=== PATIENT | female | born 1965 | race Caucasian/White ===

== ENCOUNTER → 2019-05-28 | Outpatient (REF) | payer OTHER ==
[2019-05-28 10:30] LABS: INR 1.42; PROTHROMBIN TIME 17.1 SECONDS (11.8-14.0)
== END ==
LOC: M LAB REF 09:27
PROVIDERS: ATTEND Internal Medicine Cardiovascular Disease
DX: Z51.81 Encounter for therapeutic drug level monitoring (principal)

== ENCOUNTER → 2019-06-04 | Outpatient (REF) | payer OTHER ==
[2019-06-04 11:18] LABS: INR 2.79; PROTHROMBIN TIME 29.3 SECONDS (11.8-14.0)
== END ==
LOC: M LAB REF 10:56
PROVIDERS: ATTEND Internal Medicine Cardiovascular Disease
DX: Z51.81 Encounter for therapeutic drug level monitoring (principal)

== ENCOUNTER 2020-03-10 18:45 | Inpatient (IN) | payer MEDICAID, OTHER ==
[~2020-03-10] VITALS: Ht 162.6 cm; Wt 78.3 kg
[2020-03-10] MEDS ORDERED: LABETALOL 100MG/20ML VIAL IV STA (19:21)
[2020-03-10] MEDS ORDERED: ONDANSETRON 4MG/2ML VIAL IV ONE (19:30)
[2020-03-10 20:15] LABS: BASO # 0.1 10^3/uL (0.0-0.2); BASO % 0.4 % (0.0-1.0); EOS % 0.1 % (0.0-3.0); HEMATOCRIT 37.9 % (36.0-47.0); HEMOGLOBIN 13.3 g/dl (12.0-15.5); LYMPH # 1.3 10^3/uL (1.5-5.0); LYMPH % 8.9 % (24.0-44.0); MEAN CORPUSCULAR HEMOGLOBIN 30.6 pg (27.0-33.0); MEAN CORPUSCULAR HGB CONC 35.1 g/dl (32.0-36.5); MEAN CORPUSCULAR VOLUME 87.1 fl (80.0-96.0); MONO # 0.7 10^3/uL (0.0-0.8); MONO % 4.7 % (0.0-5.0); NEUTROPHILS # 12.1 10^3/uL (1.5-8.5); NEUTROPHILS % 85.4 % (36.0-66.0); PLATELET COUNT, AUTOMATED 405 10^3/uL (150-450); RED BLOOD COUNT 4.35 10^6/uL (4.00-5.40); WHITE BLOOD COUNT 14.1 10^3/uL (4.0-10.0)
[2020-03-10] MEDS ORDERED: hydrALAZINE 20MG/ML 1ML VIAL (J0360 PER 20MG) IV ONE (20:15)
[2020-03-10 20:25] LABS: INR 0.94; PROTHROMBIN TIME 12.3 SECONDS (11.8-14.0)
[2020-03-10 20:26] LABS: PARTIAL THROMBOPLASTIN TIME 22.5 SECONDS (25.0-38.4)
[2020-03-10 20:35] VITALS: BP 181/86
[2020-03-10 20:40] LABS: CK-MB VALUE MASS 1.1 NG/ML (<3.6); CPK CREATINE PHOSPHOKINASE 33 U/L (26-192); MB/CK RELATIVE INDEX 3.33 (< OR =4); TROPONIN I < 0.02 NG/ML (< 0.10)
[2020-03-10] MEDS ORDERED: METOCLOPRAMIDE INJ 10MG/2ML VIAL (J2765 PER 1) IV ONE (20:45)
[2020-03-10] MEDS ORDERED: METO1TAB87 (20:58)
--- NOTE | 2020-03-10 21:03 | ECGEPIP ---
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
--- NOTE | 2020-03-10 21:09 | REPVR ---
PROCEDURE INFORMATION: Exam: CT Head Without Contrast Exam date and time: 03/10/2020 7:31 PM Age: 55 years old Clinical indication: Other: CVA; Additional info: CVA - nursing interventions must not delay CT TECHNIQUE: Imaging protocol: Computed tomography of the head without contrast. Radiation optimization: All CT scans at this facility use at least one of these dose optimization techniques: automated exposure control; mA and/or kV adjustment per patient size (includes targeted exams where dose is matched to clinical indication); or iterative reconstruction. Other technique: STROKE PROTOCOL was implemented. COMPARISON: No relevant prior studies available. FINDINGS: Brain: Normal. No hemorrhage. Unremarkable white matter. No mass effect. Ventricles: Normal. No ventriculomegaly. Bones/joints: Unremarkable. No acute fracture. Sinuses: Visualized sinuses are unremarkable. No fluid levels. Mastoid air cells: Visualized mastoid air cells are well aerated. Vasculature: Vascular calcifications. Soft tissues: Unremarkable. IMPRESSION: No acute intracranial abnormality. ASSESSMENT: ASPECTS ([place]ell Stroke Program Early CT Score) is 10. Electronically signed by: Baron Bragg On 03/10/2020 21:09:12 PM
[2020-03-10] MEDS ORDERED: AMLO1TAB25 (21:14)
[2020-03-10] MEDS ORDERED: DULO1CAP5 (21:14)
[2020-03-10] MEDS ORDERED: CLOP75TA2 (21:14)
[2020-03-10] MEDS ORDERED: EZET10TA21 (21:14)
[2020-03-10] MEDS ORDERED: DULO1CAP6 (21:14)
[2020-03-10] MEDS ORDERED: FURO40TA2 (21:14)
[2020-03-10] MEDS ORDERED: LISI20TA20 (21:14)
[2020-03-10] MEDS ORDERED: GEMF600T5 (21:14)
[2020-03-10] MEDS ORDERED: ALOG6.25 (21:14)
[2020-03-10] MEDS ORDERED: WARF-20 (21:14)
[2020-03-10] MEDS ORDERED: LEVO25TA5 (21:14)
[2020-03-10] MEDS ORDERED: PANT40TA29 (21:14)
[2020-03-10] MEDS ORDERED: ATOR80TA59 (21:14)
[2020-03-10] MEDS ORDERED: VITA50005 (21:14)
[2020-03-10] MEDS ORDERED: MAPA325T8 (21:14)
[2020-03-10] MEDS ORDERED: KETOROLAC 30 MG/ML 1ML VIAL IV ONE (21:30)
[2020-03-10] MEDS ORDERED: NS 500 ML IV ONE (21:30)
[2020-03-10] MEDS ORDERED: diphenhydrAMINE 50MG/ML VIAL (J1200) IV ONE (21:30)
[2020-03-10] MEDS ORDERED: HumaLOG INSULIN (NovoLOG) PER UNIT SC ONE (22:30)
[2020-03-11] MEDS ORDERED: DEXTROSE 50% 50 ML SYRINGE IV PRN (01:30)
[2020-03-11] MEDS ORDERED: GLUCAGON INJ 1MG VIAL SC PRN (01:30)
[2020-03-11] MEDS ORDERED: GLUCOSE 4GM CHEW TABLET PO PRN (01:30)
[2020-03-11] MEDS ORDERED: LISI20TA20 PO (02:13)
[2020-03-11] MEDS ORDERED: DULO1CAP6 PO (02:13)
[2020-03-11] MEDS ORDERED: SYNT25TA PO (02:13)
[2020-03-11] MEDS ORDERED: FURO40TA2 PO (02:13)
[2020-03-11] MEDS ORDERED: METO25TA4 PO (02:13)
[2020-03-11] MEDS ORDERED: AMLO1TAB25 PO (02:13)
[2020-03-11] MEDS ORDERED: BASA100I SC (02:13)
[2020-03-11] MEDS ORDERED: EZET10TA21 PO (02:13)
[2020-03-11] MEDS ORDERED: VITA50005 PO (02:13)
[2020-03-11] MEDS ORDERED: ATOR80TA59 PO (02:13)
[2020-03-11] MEDS ORDERED: ALOG6.25 PO (02:13)
[2020-03-11] MEDS ORDERED: ACET-907 PO (02:13)
[2020-03-11] MEDS ORDERED: DULO30CA9 PO (02:13)
[2020-03-11] MEDS ORDERED: PLAV1TAB2 PO (02:13)
[2020-03-11] MEDS ORDERED: GEMF600T5 PO (02:13)
[2020-03-11] MEDS ORDERED: MECL1TAB31 PO (02:13)
[2020-03-11] MEDS ORDERED: PANT-23 PO (02:13)
[2020-03-11] MEDS ORDERED: LEVEMIR (INSULIN DETEMIR) 1 UNITS/0.01ML SC ONE (02:15)
[2020-03-11] MEDS ORDERED: ACETAMINOPHEN TAB 650MG DOSE (2X325MG) PO PRN (02:15)
[2020-03-11 03:15] VITALS: BP 172/82
[2020-03-11] MEDS: ASPIRIN 81 MG CHEW TABLET PO ONE ×2 (03:15→04:03)
[2020-03-11] MEDS: ONDANSETRON 4MG/2ML VIAL IV PRN ×3 (04:03→16:19)
[2020-03-11] MEDS: LABETALOL 100MG/20ML VIAL IV SCH ×4 (04:04→21:00)
[2020-03-11] MEDS ORDERED: HumaLOG INSULIN (NovoLOG) PER UNIT SC ONE (04:15)
--- NOTE | 2020-03-11 04:33 | HPEPDOC ---
General Date of Admission 03/11/2020 Date of Service: Mar 11, 2020 Chief Complaint The patient is a 55-year-old female Who presented to the emergency room with complaint of nausea, vomiting and numbness and tingling of her right face History of Present Illness Patient is a 55-year-old female with a PMHx of CAD s/p stent / CABG, HTN, Hypothyroidism, DLP, Depression, who presented to the emergency room with complaints of numbness of the side of her right face and right leg , as well as nausea and vomiting. Patient reported that this morning she is experiencing nausea and vomiting and then 2:00 this afternoon she noted that she had right leg heaviness and right facial tingling. Upon arrival to emergency room, patient was evaluated by ER providers would noted that patient was hypertensive, with systolic blood pressures in the 200s. Was given IV medication to help control blood pressure. Resolution of her nausea and vomiting. Noted persistence of her numbness and tingling in the right side of her face. CT scan was acquired and was negative for any acute infarcts. Hospitalist service was contacted for admission. Patient reports that the numbness and tingling of the right side of her face and right leg persist and she is having difficulty with ambulation. , Currently patient notes that her nausea and vomiting has improved. Patient does not have any prior history of strokes but has had a heart attack 5 years ago. Has also had a coronary artery bypass done 05/2019. Patient reports that currently she denies any chest pain, shortness of breath, cough or palpitations. Does not express any abdominal pain, constipation, diarrhea, or urinary discomfort. Has not expense any fevers or chills. Denies any changes in her weight Home Medications Scheduled Alogliptin Benzoate (Alogliptin) 6.25 Mg Tablet, 6.25 MG PO DAILY, (Reported) Amlodipine Besylate (Amlodipine Besylate) 10 Mg Tablet, 10 MG PO DAILY, (Reported) Atorvastatin Calcium (Atorvastatin Calcium) 80 Mg Tablet, 80 MG PO DAILY, (Reported) Clopidogrel Bisulfate (Plavix) 75 Mg Tablet, 75 MG PO DAILY, (Reported) Duloxetine Hcl (Duloxetine HCl) 30 Mg Capsule.dr, 30 MG PO DAILY, (Reported) TAKES WITH 60MG FOR 90MG TOTAL Duloxetine Hcl (Duloxetine HCl) 60 Mg Capsule.dr, 60 MG PO DAILY, (Reported) TAKES WITH 30MG FOR 90MG TOTAL Ergocalciferol (Vitamin D2) (Vitamin D2) 50,000 Units Cap, 50,000 UNITS PO 1XWK, (Reported) SATURDAY Ezetimibe (Ezetimibe) 10 Mg Tablet, 10 MG PO DAILY, (Reported) Furosemide (Furosemide) 40 Mg Tablet, 40 MG PO DAILY, (Reported) Gemfibrozil (Gemfibrozil) 600 Mg Tablet, 300 MG PO TID, (Reported) Insulin Glargine,Hum.rec.anlog (Basaglar Kwikpen U-100) 100 Unit/1 Ml Insuln.pen, 40 UNIT SC QHS, (Reported) Levothyroxine Sodium (Synthroid) 25 Mcg Tablet, 25 MCG PO DAILY, (Reported) Lisinopril/Hydrochlorothiazide (Lisinopril-Hctz 20-25 mg Tab) 1 Each Tablet, 1 TAB PO DAILY, (Reported) Metoprolol Tartrate (Metoprolol Tartrate) 25 Mg Tablet, 25 MG PO BID, (Reported) Pantoprazole Sodium (Pantoprazole Sodium) 40 Mg Tablet.dr, 40 MG PO BID, (Reported) Scheduled PRN Acetaminophen (Tylenol) 325 Mg Tablet, 650 MG PO Q4H PRN for PAIN / FEVER, (Reported) Meclizine HCl (Meclizine HCl) 25 Mg Tablet, 25 MG PO DAILY PRN for VERTIGO/DIZZINESS, (Reported) Allergies Coded Allergies: Penicillins (Verified Allergy, Intermediate, swelling, 03/10/20) prednisone (Verified Adverse Reaction, Intermediate, tachycardia, 03/10/20) Past Medical History Medical History CAD s/p stent / CABG, HTN, Hypothyroidism, DLP, Depression Surgical History Coronary artery bypass graft Appendectomy Family History - Mother with history of breast cancer Social History - Denies the use of alcohol, tobacco or illicit drugs - Denies recent travel or sick contacts - Lives with daughter - 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; 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 Review of Systems Other systems 10 point review of systems complete, all negative otherwise stated in HPI Vital Signs - Vitals: BP 178/92, HR [77], RR [16], Sat [98%RA], Temp [98.9F] - General: Lying in bed, Speaking in full sentences, AAOx3 - HEENT: NC, AT, PERRLA, EOMI - CVS: RRR, +S1S2 - Lungs: Fair air entry bilaterally, No appreciable wheezing / rales / rhonchi - Abdomen: Soft, Non-distended, Non-tender - Extremities: No lower extremity edema, No calf tenderness - Neuro: 5/5 strength at upper / lower extremities bilaterally, CN2-12 grossly intact - Skin: No visible rashes Laboratory Data Labs 24H Laboratory Tests 2 03/10/20 19:21: Immature Granulocyte % (Auto) 0.5, Neutrophils (%) (Auto) 85.4H, Lymphocytes (%) (Auto) 8.9L, Monocytes (%) (Auto) 4.7, Eosinophils (%) (Auto) 0.1, Basophils (%) (Auto) 0.4, Neutrophils # (Auto) 12.1H, Lymphocytes # (Auto) 1.3L, Monocytes # (Auto) 0.7, Eosinophils # (Auto) 0.0, Basophils # (Auto) 0.1, Nucleated Red Blood Cells % (auto) 0.0, Prothrombin Time 12.3, Prothromb Time International Ratio 0.94, Activated Partial Thromboplast Time 22.5L, Total Creatine Kinase 33, Creatine Kinase MB 1.1, Creatine Kinase MB Relative Index 3.33, Troponin I < 0.02 03/10/20 19:52: Lactic Acid Level 1.7 03/10/20 19:57: POC Glucose (Misc Panel) 433H, POC Sodium (Misc Panel) 135L, POC Potassium (Misc Panel) 4.0, POC Chloride (Misc Panel) 100, POC Total CO2 (Misc Panel) 25.0, POC Blood Urea Nitrogen (Misc Panel 27H, POC Ionized Calcium (Misc Panel) 4.8, POC Creatinine (Misc Panel) 1.0, POC Hematocrit (Misc Panel) 40.0 03/11/20 00:02: Bedside Glucose (Misc Panel) 404H CBC/BMP Laboratory Tests 03/10/20 19:21 Plan / VTE VTE Prophylaxis Ordered?: Yes Plan Plan R facial numbness / R leg numbness - possibly 2/2 CVA - Patient presented to the emergency room with complaints of numbness and healing of her right face and leg associated with nausea and vomiting - Physical is without any focal neurologic deficits - CT head 03/10: No acute intracranial abnormality. - Will check MRI / MRA brain / Neuro checks / ECHO / Duplex Carotid / Cardiac risk profile - Will start ASA in addition to the existing Plavix; c/w Atorvastatin Hypertensive urgency - Blood pressure currently is slightly improved - Will allow for permissive hypertension until MRI results (140-180) - Hold Metorpolol / Furosemide / Lisinopril / HCTZ - Will continue with labetalol with specific holding parameters Nausea and vomiting - possibly 2/2 Hypertensive urgency - Currently has resolution of her symptoms - No abdominal pain - c/w Zofran CAD s/p stent / CABG - c/w Plavix - Patient reports that she has been on Coumadin one month ago, but had stopped abruptly; is unclear why she was on Coumadin - Will request records Hypothyroidism - c/w Levothyroxine IDDM2 - c/w ISS and adjust dose of long acting insulin DLP - c/w Atorvastatin and Gemfibrozil Depression - c/w DVT prophylaxis - Will start Heparin DINAH PAZ MD Mar 11, 2020 02:20
[2020-03-11] MEDS: HEPARIN SOD (PORCINE) 5000UNITS/ML 1ML VIAL/SYRINGE SC SCH ×3 (06:00→21:34)
[2020-03-11] MEDS ORDERED: hydrALAZINE 20MG/ML 1ML VIAL (J0360 PER 20MG) IV ONE (06:15)
[2020-03-11] MEDS ORDERED: METOCLOPRAMIDE INJ 10MG/2ML VIAL (J2765 PER 1) IV ONE (06:15)
[2020-03-11] MEDS: HumaLOG INSULIN (NovoLOG) PER UNIT SC SCH ×4 (07:30→21:00)
[2020-03-11 08:00] VITALS: BP 162/88
[2020-03-11 08:09] LABS: BASO % 0.2 % (0.0-1.0); HEMATOCRIT 37.4 % (36.0-47.0); LYMPH # 1.2 10^3/uL (1.5-5.0); LYMPH % 9.1 % (24.0-44.0); MEAN CORPUSCULAR HEMOGLOBIN 30.4 pg (27.0-33.0); MEAN CORPUSCULAR HGB CONC 34.8 g/dl (32.0-36.5); MEAN CORPUSCULAR VOLUME 87.6 fl (80.0-96.0); MONO # 0.7 10^3/uL (0.0-0.8); NEUTROPHILS # 11.1 10^3/uL (1.5-8.5); NEUTROPHILS % 85.3 % (36.0-66.0); PLATELET COUNT, AUTOMATED 427 10^3/uL (150-450); RED BLOOD COUNT 4.27 10^6/uL (4.00-5.40)
[2020-03-11 08:31] LABS: CALCIUM LEVEL 9.5 MG/DL (8.5-10.1); CREATININE FOR GFR 1.31 MG/DL (0.55-1.30)
--- NOTE | 2020-03-11 08:49 | REP ---
REASON: Stroke-like symptoms. FINDINGS: The technique utilized in obtaining the radiograph has magnified the cardiac silhouette and accentuated the interstitial markings. The superior mediastinal structures are midline. Note is made of previous median sternotomy. The cardiac silhouette is unremarkable in size, shape, and position. The diaphragmatic surfaces of the lungs are regular, and the costophrenic angles are clear. The pulmonary jerome are clear. The imaged osseous structures are intact. IMPRESSION: There is no acute cardiopulmonary disease. Electronically Signed by Narendra Red DO 03/11/2020 11:24 A
[2020-03-11] MEDS: EZETIMIBE 10 MG TAB (ZETIA) PO SCH (09:00)
[2020-03-11] MEDS: amLODIPine 10 MG TAB PO SCH (09:00)
[2020-03-11] MEDS: PANTOPRAZOLE 40MG TAB (PROTONIX) PO SCH ×2 (09:00→21:00)
[2020-03-11] MEDS: gemfibroziL 600 MG TAB PO SCH ×3 (09:00→21:00)
[2020-03-11] MEDS: ATORVASTATIN 20 MG TAB PO SCH (09:00)
[2020-03-11] MEDS: CLOPIDOGREL 75 MG TAB PO SCH (09:00)
[2020-03-11] MEDS: ASPIRIN 81 MG CHEW TABLET PO SCH (09:00)
[2020-03-11] MEDS: lisinopriL 10 MG TAB PO SCH (09:00)
[2020-03-11] MEDS ORDERED: LEVEMIR (INSULIN DETEMIR) 1 UNITS/0.01ML SC SCH ×2 (09:00→21:00)
[2020-03-11] MEDS: LEVOTHYROXINE 25MCG TABLET (0.025MG) PO SCH (09:00)
[2020-03-11] MEDS: METOPROLOL TART 25 MG TABLET PO SCH ×2 (09:00→21:00)
[2020-03-11] MEDS: DULoxetine 30 MG CAP (CYMBALTA) PO SCH (09:00)
--- NOTE | 2020-03-11 09:33 | REP ---
REASON: Stenosis and bruit. PRIORS: None. Preliminary report given by [facility] at the time the exam was performed. There is echogenic material seen along the carotid arterial wall some of which casts an acoustic shadow consistent with calcific deposition. RIGHT LEFT CCA systolic 82.6 cm/s 81.8 cm/s CCA diastolic 17.4 cm/s 14.0 cm/s ICA systolic 56.8 cm/s 64.0 cm/s ICA diastolic 29.7 cm/s 17.1 cm/s ICA/CCA ratio 0.69 0.78 Analysis of the spectral waveforms shows above and below the baseline waveform seen in the right vertebral artery. Normal antegrade flow is seen in the left vertebral artery. There is no evidence of significant spectral broadening. IMPRESSION: 1. According to the SRU criteria, there is less than 50% stenosis of the internal carotid artery bilaterally. This is secondary to both calcified and noncalcified plaque formation . 2. Possible early right-sided subclavian steal syndrome. Electronically Signed by Narendra Red DO 03/11/2020 11:26 A
[2020-03-11 12:00] VITALS: BP 148/76
[2020-03-11] MEDS: MECLIZINE 25 MG TABLET PO PRN ×2 (12:53→21:00)
[2020-03-11] MEDS ORDERED: SODIUM CHLORIDE 0.9% 1000ML IV ONE (14:00)
[2020-03-11] MEDS: NS 1,000 ML IV SCH (15:33)
[2020-03-11 16:00] VITALS: BP 152/80
--- NOTE | 2020-03-11 16:50 | IPNPDOC ---
Text Note Date of Service The patient was seen on 03/11/20. NOTE Subjective: Complains of room spinning on opening the eyes with nausea and vo miting which started around 2 pm yesterday while she was sitting down. She could not work with PT due to severe vertigo . Denies any weakness or numbess of her body. Physical Exam - Vitals:As below - General: Lying in bed, Speaking in full sentences, AAOx3 - HEENT: NC, AT, PERRLA, Horizontal nystagmus present. - CVS: RRR, +S1S2, no rub, murmur or gallop - Lungs: Fair air entry bilaterally, No appreciable wheezing / rales / rhonchi - Abdomen: Soft, Non-distended, Non-tender - Extremities: No lower extremity edema, No calf tenderness - Neuro: 5/5 strength at upper / lower extremities bilaterally, CN2-12 grossly intact - Skin: No visible rashes Assessment and plan: Patient is a 55-year-old female with a PMHx of CAD s/p stent / CABG, HTN, Hypothyroidism, DLP, Depression, who presented to the emergency room with complaints of numbness of the side of her right face and right leg , as well as nausea and vomiting and spinning of the room. Patient reported that on [place] morning of admission she was experiencing nausea and vomiting and then 2:00 this afternoon she noted that she had right leg heaviness and right facial tingling. Upon arrival to emergency room, patient was evaluated by ER providers would noted that patient was hypertensive, with systolic blood pressures in the 200s. Was given IV medication to help control blood pressure. Resolution of her nausea and vomiting. Noted persistence of her numbness and tingling in the right side of her face. CT scan was acquired and was negative for any acute infarcts. Hospitalist service was contacted for admission. This morning again started complainingof nausea and vomiting with spinning of the room. Vertigo Nausea and vomiting with spinning of the room horizontal nystagmus present possibly vestibular neuronitis/ labyrynthitis/BPPV rule of cerebellar CVA MRI done results pending. IVF, clear liquids, Zofran and reglan. Meclizine prn. R facial numbness / R leg numbness rule out CVA Patient presented to the emergency room with complaints of numbness and healing of her right face and leg associated with nausea and vomiting CT head 03/10: No acute intracranial abnormality. MRI / MRA brain Neuro checks ECHO Duplex Carotid / Cardiac risk profile ASA, Plavix, Atorvastatin Hypertensive urgency Will allow for permissive hypertension until MRI results (140-180) metoprolol and lisinopril with hold parameters. Will continue with labetalol with specific holding parameters CAD s/p stent / CABG in 05/2019 c/w Plavix Patient reports that she has been on Coumadin one month ago, but had stopped abruptly; is unclear why she was on Coumadin Hypothyroidism Levothyroxine IDDM2 sugars auncontrolled. 400 Levemir dosage increased. ISS and adjust dose of long acting insulin DLP Atorvastatin and Gemfibrozil Depression home meds. DVT prophylaxis Heparin VS,Fishbone, I+O VS, Fishbone, I+O Laboratory Tests 03/10/20 19:21 03/11/20 03:28 Vital Signs Date Time Temp Pulse Resp B/P (MAP) Pulse Ox O2 Delivery O2 Flow Rate FiO2 03/11/20 12:00 96.9 89 16 148/76 (100) 100 Room Air I&O- Last 24 Hours up to 6 AM 03/11/20 07:00 Intake Total 500 ml Output Total 0 ml Balance 500 ml ANGELITA JARRETT MD Mar 11, 2020 16:50
--- NOTE | 2020-03-11 17:54 | REP ---
REASON: Facial numbness. Preliminary report given by [facility] at the time the exam was performed. There is occlusion of the right vertebral artery versus marked and extreme hypoplasia. There is a flow-limiting stenosis of the proximal to mid A1 segment of the left anterior cerebral artery. There are no other abnormalities. seen on the MRA This is the second dictation on the brain MRI. In the right cervicomedullary junction, there is a focal area of FLAIR hypersignal. This same FLAIR hypersignal area is of DWI hypersignal and ADC mapping low signal. The intracranial contents are otherwise unremarkable. No additions to or extractions from the ad preliminary report need to be made. IMPRESSION: Acute lacunar infarct involving the right cervicomedullary junction. Electronically Signed by Narendra Red DO 03/11/2020 06:12 P
[2020-03-11 20:00] VITALS: BP 148/76
[2020-03-11] MEDS ORDERED: METOCLOPRAMIDE INJ 10MG/2ML VIAL (J2765 PER 1) IV PRN (21:15)
[2020-03-11] MEDS: PROMETHAZINE INJ 25 MG/ML VIAL (J2550) IV PRN (21:34)
[2020-03-12] VITALS (7 sets, daily range): BP systolic 152–170; BP diastolic 78–94
[2020-03-12] MEDS: NS 1,000 ML IV SCH ×3 (02:26→20:00)
[2020-03-12] MEDS: LABETALOL 100MG/20ML VIAL IV SCH ×4 (02:26→21:00)
[2020-03-12] MEDS: HEPARIN SOD (PORCINE) 5000UNITS/ML 1ML VIAL/SYRINGE SC SCH ×3 (05:16→21:14)
[2020-03-12] MEDS: PROMETHAZINE INJ 25 MG/ML VIAL (J2550) IV PRN ×3 (05:43→23:36)
[2020-03-12 05:45] LABS: BASO % 0.1 % (0.0-1.0); HEMOGLOBIN 12.1 g/dl (12.0-15.5); LYMPH % 13.1 % (24.0-44.0); MEAN CORPUSCULAR HEMOGLOBIN 30.3 pg (27.0-33.0); MEAN CORPUSCULAR HGB CONC 33.6 g/dl (32.0-36.5); MEAN CORPUSCULAR VOLUME 90.2 fl (80.0-96.0); MONO # 1.9 10^3/uL (0.0-0.8); MONO % 12.5 % (0.0-5.0); PLATELET COUNT, AUTOMATED 390 10^3/uL (150-450); RED BLOOD COUNT 3.99 10^6/uL (4.00-5.40); WHITE BLOOD COUNT 14.9 10^3/uL (4.0-10.0)
[2020-03-12 06:01] LABS: CALCIUM LEVEL 8.7 MG/DL (8.5-10.1); CREATININE FOR GFR 1.31 MG/DL (0.55-1.30); POTASSIUM SERUM 3.6 MEQ/L (3.5-5.1)
[2020-03-12] MEDS: MECLIZINE 25 MG TABLET PO PRN ×2 (08:23→18:15)
[2020-03-12] MEDS: HumaLOG INSULIN (NovoLOG) PER UNIT SC SCH ×4 (08:24→21:00)
[2020-03-12] MEDS: LEVOTHYROXINE 25MCG TABLET (0.025MG) PO SCH ×2 (08:25→09:00)
[2020-03-12] MEDS: ATORVASTATIN 20 MG TAB PO SCH ×2 (08:25→09:00)
[2020-03-12] MEDS: CLOPIDOGREL 75 MG TAB PO SCH ×2 (08:25→09:00)
[2020-03-12] MEDS: PANTOPRAZOLE 40MG TAB (PROTONIX) PO SCH ×3 (08:25→21:14)
[2020-03-12] MEDS: amLODIPine 10 MG TAB PO SCH ×2 (08:26→09:00)
[2020-03-12] MEDS: METOPROLOL TART 25 MG TABLET PO SCH ×3 (08:26→21:14)
[2020-03-12] MEDS: ASPIRIN 81 MG CHEW TABLET PO SCH ×2 (08:26→09:00)
[2020-03-12] MEDS: gemfibroziL 600 MG TAB PO SCH ×4 (08:27→21:15)
[2020-03-12] MEDS: lisinopriL 10 MG TAB PO SCH (08:27)
[2020-03-12] MEDS: EZETIMIBE 10 MG TAB (ZETIA) PO SCH ×2 (08:27→09:00)
[2020-03-12] MEDS: DULoxetine 30 MG CAP (CYMBALTA) PO SCH ×2 (08:27→09:00)
[2020-03-12] MEDS ORDERED: LEVEMIR (INSULIN DETEMIR) 1 UNITS/0.01ML SC SCH (09:00)
--- NOTE | 2020-03-12 15:42 | IPNPDOC ---
Text Note Date of Service The patient was seen on 03/12/20. NOTE Subjective: Continues to have severe vertigo, in all positions worse when sit ting up. She has to keep her eyes covered otherwise the room is constantly spinning. Her nausea and vomiting seems to be better today and she was able to keep some clear Denies any weakness However continues to have right facial numbness and numbness of the right toes. She feels she may be able to try some full liquids. Physical Exam - Vitals:As below - General: Lying in bed, Speaking in full sentences, AAOx3 - HEENT: NC, AT, PERRLA, Horizontal nystagmus present. - CVS: RRR, +S1S2, no rub, murmur or gallop - Lungs: Fair air entry bilaterally, No appreciable wheezing / rales / rhonchi - Abdomen: Soft, Non-distended, Non-tender - Extremities: No lower extremity edema, No calf tenderness - Neuro: 5/5 strength at upper / lower extremities bilaterally, CN2-12 grossly intact , DTRS in both the upper and lower extremities absent. - Skin: No visible rashes Labs Reviewed IMAGING: MRI: Acute lacunar infarct involving the right cervicomedullary junction. Carotid doppler: 1. According to the SRU criteria, there is less than 50% stenosis of the internal carotid artery bilaterally. This is secondary to both calcified and noncalcified plaque formation . 2. Possible early right-sided subclavian steal syndrome. Assessment and plan: Patient is a 55-year-old female with a PMHx of CAD s/p stent / CABG, HTN, Hypothyroidism, DLP, Depression, who presented to the emergency room with complaints of numbness of the side of her right face and right leg , as well as nausea and vomiting and spinning of the room. Patient reported that on the morning of admission she woke up experiencing nausea and vomiting and then 2:00 in the afternoon she noted that she had right leg heaviness and right facial tingling. Upon arrival to emergency room, patient was evaluated by ER providers would noted that patient was hypertensive, with systolic blood pressures in the 200s. Was given IV medication to help control blood pressure. With medications there was some resolution of her nausea and vomiting. However she had persistent numbness and tingling in the right side of her face. CT scan was acquired and was negative for any acute infarcts. Hospitalist service was contacted for admission. 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 Causing persistent severe vertigo. Already On ASA, Plavix and statin. symptomatic management of vertigo with meclizine. Discussed patient with Dr Ortega. To continue with current treatment . Patient was already out of the window of any intervention on her presentation. recommended MRA neck or MRi neck with contrast to better visualize the vertebral artery. PT/OT. Vertigo due to acute posterior circulation stroke. Nausea and vomiting with spinning of the room horizontal nystagmus present Will have to rule out associated vestibular neuronitis/ labyrynthitis/BPPV Vestibular PT. IVF, full liquids. Zofran and reglan. Meclizine prn. R facial numbness / R leg numbness rule out CVA Patient presented to the emergency room with complaints of numbness of her right face and leg associated with nausea and vomiting CT head 03/10: No acute intracranial abnormality. MRI Acute lacunar infarct in the right cervico- medullary junction. Neuro checks ECHO ASA, Plavix, Atorvastatin Hypertensive urgency Will allow for permissive hypertension due to acute CVA metoprolol and lisinopril with hold parameters. Will continue with labetalol with specific holding parameters CAD s/p stent / CABG in 05/2019 c/w Plavix, ASA Patient reports that she has been on Coumadin till one month ago, but had stopped abruptly; is unclear why she was on Coumadin Hypothyroidism Levothyroxine IDDM2 sugars uncontrolled yesterday, better controlled today. Levemir dosage increased. ISS and adjust dose of long acting insulin DLP Atorvastatin and Gemfibrozil Depression home meds. DVT prophylaxis Heparin VS,Fishbone, I+O VS, Fishbone, I+O Laboratory Tests 03/12/20 05:18 Vital Signs Date Time Temp Pulse Resp B/P (MAP) Pulse Ox O2 Delivery O2 Flow Rate FiO2 03/12/20 04:00 97.1 58 18 166/88 (114) 98 Room Air I&O- Last 24 Hours up to 6 AM 03/12/20 07:00 Intake Total 1540 ml Output Total 1800 ml Balance -260 ml ANGELITA JARRETT MD Mar 12, 2020 06:54
[2020-03-13] VITALS: BP 156/90
[2020-03-13] MEDS: LABETALOL 100MG/20ML VIAL IV SCH ×4 (03:00→20:58)
[2020-03-13 04:00] VITALS: BP 166/84
[2020-03-13] MEDS: MECLIZINE 25 MG TABLET PO PRN ×2 (05:30→14:30)
[2020-03-13] MEDS: HEPARIN SOD (PORCINE) 5000UNITS/ML 1ML VIAL/SYRINGE SC SCH ×3 (05:30→20:56)
[2020-03-13] MEDS: NS 1,000 ML IV SCH (05:32)
[2020-03-13 05:35] LABS: BASO % 0.4 % (0.0-1.0); EOS % 0.2 % (0.0-3.0); HEMATOCRIT 32.4 % (36.0-47.0); HEMOGLOBIN 10.7 g/dl (12.0-15.5); LYMPH # 2.2 10^3/uL (1.5-5.0); LYMPH % 26.4 % (24.0-44.0); MEAN CORPUSCULAR HEMOGLOBIN 30.1 pg (27.0-33.0); MEAN CORPUSCULAR VOLUME 91.3 fl (80.0-96.0); MONO # 1.3 10^3/uL (0.0-0.8); MONO % 15.2 % (0.0-5.0); NEUTROPHILS # 4.8 10^3/uL (1.5-8.5); NEUTROPHILS % 57.3 % (36.0-66.0); PLATELET COUNT, AUTOMATED 336 10^3/uL (150-450); RED BLOOD COUNT 3.55 10^6/uL (4.00-5.40); WHITE BLOOD COUNT 8.4 10^3/uL (4.0-10.0)
[2020-03-13 05:55] LABS: CALCIUM LEVEL 8.2 MG/DL (8.5-10.1); CREATININE FOR GFR 1.22 MG/DL (0.55-1.30); GLOMERULAR FILTRATION RATE 48.9 (>51); MAGNESIUM LEVEL 1.9 MG/DL (1.8-2.4); POTASSIUM SERUM 3.6 MEQ/L (3.5-5.1)
--- NOTE | 2020-03-13 07:10 | ECHO ---
DATE OF STUDY: 03/11/2020 DATE OF : 1965 AGE: 55 REFERRING PROVIDER: Dr. Chacho Padilla PATIENT LOCATION: Room 3220 REASON FOR STUDY: CVA. 2-D MEASUREMENTS: IVS: 1.1 cm LV: 4.1 cm LVPW: 1.1 cm LA: 3.7 cm Aorta: 2.8 cm DOPPLER MEASUREMENTS: Peak velocity across the aortic valve: 1.2 m/s Peak velocity across the LVOT: 0.9 m/s Mitral E: 0.96 Mitral A: 0.87 Ratio: 1.1 2-D COMMENTS: 1. Normal left ventricular size, wall thickness, and normal global left ventricular systolic function. The estimated left ventricular systolic ejection fraction is 60-65%. 2. Normal left atrium. Normal right atrium and right ventricle. 3. There was increased mobility noted at the level of the atrial septum consistent with atrial septal aneurysm, but no intracardiac shunt detected by Doppler. 4. Normal aortic root. 5. No pericardial effusion seen. 6. Minimally calcified aortic valve with normal leaflet excursion. Normal mitral valve. The posterior papillary muscle appeared to be mildly calcified. Normal tricuspid valve. The pulmonic valve and proximal pulmonary artery branches appear to be normal. 7. The inferior vena cava was not visualized. DOPPLER: It detects trace mitral regurgitation. Assessment of the left ventricular diastolic function appeared to be normal. IMPRESSION: 1. Normal global left ventricular systolic and diastolic function. 2. Aortic valve sclerosis without stenosis or aortic regurgitation. 3. Trace mitral regurgitation. 4. Interatrial septal aneurysm noted, but no evidence of cardiac shunt by Doppler. The patient might benefit from a bubble study in view of diagnosis of CVA. MOISÉS
[2020-03-13] MEDS: PROMETHAZINE INJ 25 MG/ML VIAL (J2550) IV PRN (07:43)
[2020-03-13 08:00] VITALS: BP 120/60
[2020-03-13] MEDS ORDERED: LevoFLOXacin IV 500 MG in IV 1 EA IV ONE (08:00)
[2020-03-13] MEDS: METOPROLOL TART 25 MG TABLET PO SCH ×2 (09:00→20:57)
[2020-03-13] MEDS: amLODIPine 10 MG TAB PO SCH (09:00)
[2020-03-13] MEDS: lisinopriL 10 MG TAB PO SCH (09:00)
[2020-03-13] MEDS: LEVEMIR (INSULIN DETEMIR) 1 UNITS/0.01ML SC SCH (09:46)
[2020-03-13] MEDS: ATORVASTATIN 20 MG TAB PO SCH (09:47)
[2020-03-13] MEDS: CLOPIDOGREL 75 MG TAB PO SCH (09:47)
[2020-03-13] MEDS: EZETIMIBE 10 MG TAB (ZETIA) PO SCH (09:47)
[2020-03-13] MEDS: PANTOPRAZOLE 40MG TAB (PROTONIX) PO SCH ×2 (09:47→20:56)
[2020-03-13] MEDS: HumaLOG INSULIN (NovoLOG) PER UNIT SC SCH ×4 (09:47→20:57)
[2020-03-13] MEDS: DULoxetine 30 MG CAP (CYMBALTA) PO SCH (09:48)
[2020-03-13] MEDS: gemfibroziL 600 MG TAB PO SCH ×3 (09:48→20:56)
[2020-03-13] MEDS: LEVOTHYROXINE 25MCG TABLET (0.025MG) PO SCH (09:48)
[2020-03-13] MEDS: ASPIRIN 81 MG CHEW TABLET PO SCH (09:48)
[2020-03-13 12:00] VITALS: BP 180/94
[2020-03-13 15:00] VITALS: BP 130/70
[2020-03-14] VITALS: BP 160/70
[2020-03-14] MEDS: LABETALOL 100MG/20ML VIAL IV SCH ×4 (03:00→21:00)
[2020-03-14 04:00] VITALS: BP 176/84
[2020-03-14] MEDS: NS 1,000 ML IV SCH (04:30)
[2020-03-14] MEDS: MECLIZINE 25 MG TABLET PO PRN ×2 (04:44→22:09)
[2020-03-14 05:47] LABS: BASO % 0.6 % (0.0-1.0); EOS % 0.4 % (0.0-3.0); HEMATOCRIT 31.4 % (36.0-47.0); HEMOGLOBIN 10.7 g/dl (12.0-15.5); LYMPH # 2.5 10^3/uL (1.5-5.0); LYMPH % 37.3 % (24.0-44.0); MEAN CORPUSCULAR HEMOGLOBIN 30.4 pg (27.0-33.0); MEAN CORPUSCULAR HGB CONC 34.1 g/dl (32.0-36.5); MEAN CORPUSCULAR VOLUME 89.2 fl (80.0-96.0); MONO # 1.2 10^3/uL (0.0-0.8); MONO % 17.6 % (0.0-5.0); NEUTROPHILS % 43.8 % (36.0-66.0); PLATELET COUNT, AUTOMATED 300 10^3/uL (150-450); RED BLOOD COUNT 3.52 10^6/uL (4.00-5.40); WHITE BLOOD COUNT 6.8 10^3/uL (4.0-10.0)
[2020-03-14] MEDS: HEPARIN SOD (PORCINE) 5000UNITS/ML 1ML VIAL/SYRINGE SC SCH ×3 (05:52→22:09)
[2020-03-14 06:06] LABS: CALCIUM LEVEL 8.2 MG/DL (8.5-10.1); CREATININE FOR GFR 1.16 MG/DL (0.55-1.30); GLOMERULAR FILTRATION RATE 51.8 (>51); MAGNESIUM LEVEL 1.9 MG/DL (1.8-2.4); POTASSIUM SERUM 3.8 MEQ/L (3.5-5.1)
[2020-03-14 08:00] VITALS: BP 150/72
[2020-03-14] MEDS: ASPIRIN 81 MG CHEW TABLET PO SCH (10:14)
[2020-03-14] MEDS: LEVEMIR (INSULIN DETEMIR) 1 UNITS/0.01ML SC SCH (10:14)
[2020-03-14] MEDS: LEVOTHYROXINE 25MCG TABLET (0.025MG) PO SCH (10:15)
[2020-03-14] MEDS: ATORVASTATIN 20 MG TAB PO SCH (10:17)
[2020-03-14] MEDS: HumaLOG INSULIN (NovoLOG) PER UNIT SC SCH ×4 (10:17→21:00)
[2020-03-14] MEDS: DULoxetine 30 MG CAP (CYMBALTA) PO SCH (10:17)
[2020-03-14] MEDS: CLOPIDOGREL 75 MG TAB PO SCH (10:18)
[2020-03-14] MEDS: gemfibroziL 600 MG TAB PO SCH ×3 (10:18→22:09)
[2020-03-14] MEDS: lisinopriL 10 MG TAB PO SCH (10:19)
[2020-03-14] MEDS: EZETIMIBE 10 MG TAB (ZETIA) PO SCH (10:19)
[2020-03-14] MEDS: METOPROLOL TART 25 MG TABLET PO SCH ×2 (10:19→22:09)
[2020-03-14] MEDS: PANTOPRAZOLE 40MG TAB (PROTONIX) PO SCH ×2 (10:20→22:09)
[2020-03-14] MEDS: amLODIPine 10 MG TAB PO SCH (10:20)
[2020-03-14] MEDS ORDERED: SLF 3 ML SYR IV PRN (11:30)
[2020-03-14 12:00] VITALS: BP 140/80
--- NOTE | 2020-03-14 12:50 | IPNPDOC ---
Text Note Date of Service The patient was seen on 03/14/20. NOTE Subjective: Continues to have vertigo but seems to be a little better. When she is laying down in bed it is not bothering her. Bad when she is sitting up or stantding. Was able to stand with PT today without falling. She does tilt to 1 side. Her nausea and vomiting seems to be better today and she was able to keep some clear Denies any weakness However continues to have right facial numbness and numbness of the right toes. She has been able to tolerate diet. Physical Exam - Vitals:As below - General: Lying in bed, Speaking in full sentences, AAOx3 - HEENT: NC, AT, PERRLA, Horizontal nystagmus present. - CVS: RRR, +S1S2, no rub, murmur or gallop - Lungs: Fair air entry bilaterally, No appreciable wheezing / rales / rhonchi - Abdomen: Soft, Non-distended, Non-tender - Extremities: No lower extremity edema, No calf tenderness - Neuro: 5/5 strength at upper / lower extremities bilaterally, CN2-12 grossly intact , DTRS in both the upper and lower extremities absent. - Skin: No visible rashes Labs Reviewed IMAGING: MRI: Acute lacunar infarct involving the right cervicomedullary junction. Carotid doppler: 1. According to the SRU criteria, there is less than 50% stenosis of the internal carotid artery bilaterally. This is secondary to both calcified and noncalcified plaque formation . 2. Possible early right-sided subclavian steal syndrome. Assessment and plan: Patient is a 55-year-old female with a PMHx of CAD s/p stent / CABG, HTN, Hypothyroidism, DLP, Depression, who presented to the emergency room with complaints of numbness of the side of her right face and right leg , as well as nausea and vomiting and spinning of the room. Patient reported that on the morning of admission she woke up experiencing nausea and vomiting and then 2:00 in the afternoon she noted that she had right leg heaviness and right facial tingling. Upon arrival to emergency room, patient was evaluated by ER providers would noted that patient was hypertensive, with systolic blood pressures in the 200s. Was given IV medication to help control blood pressure. With medications there was some resolution of her nausea and vomiting. However she had persistent numbness and tingling in the right side of her face. CT scan was acquired and was negative for any acute infarcts. Hospitalist service was contacted for admission. 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 Causing persistent severe vertigo. Already On ASA, Plavix and statin. symptomatic management of vertigo with meclizine. Discussed patient with Dr Ortega. To continue with current treatment . Patient was already out of the window of any intervention on her presentation. recommended MRA neck or MRI neck with contrast to better visualize the vertebral artery. PT/OT. Vertigo due to acute posterior circulation stroke. Nausea and vomiting with spinning of the room horizontal nystagmus present Will have to rule out associated vestibular neuronitis/ labyrynthitis/BPPV Vestibular PT. Zofran and reglan. Meclizine prn. R facial numbness / R leg numbness rule out CVA Patient presented to the emergency room with complaints of numbness of her right face and leg associated with nausea and vomiting CT head 03/10: No acute intracranial abnormality. MRI Acute lacunar infarct in the right cervico- medullary junction. Neuro checks ECHO ASA, Plavix, Atorvastatin Hypertensive urgency Will allow for permissive hypertension due to acute CVA metoprolol and lisinopril with hold parameters. Will continue with labetalol with specific holding parameters CAD s/p stent / CABG in 05/2019 c/w Plavix, ASA Patient reports that she has been on Coumadin till one month ago, but had stopped abruptly; is unclear why she was on Coumadin Hypothyroidism Levothyroxine IDDM2 sugars uncontrolled yesterday, better controlled today. Levemir dosage increased. ISS and adjust dose of long acting insulin DLP Atorvastatin and Gemfibrozil Depression home meds. DVT prophylaxis Heparin VS,Fishbone, I+O VS, Fishbone, I+O Laboratory Tests 03/14/20 05:35 Vital Signs Date Time Temp Pulse Resp B/P (MAP) Pulse Ox O2 Delivery O2 Flow Rate FiO2 03/14/20 12:00 98.0 71 18 140/80 (100) 97 Room Air I&O- Last 24 Hours up to 6 AM 03/14/20 05:59 Intake Total 2800 ml Output Total 1450 ml Balance 1350 ml ANGELITA JARRETT MD Mar 14, 2020 12:50
[2020-03-14] MEDS: SLF 3 ML SYR IV SCH ×2 (13:05→22:10)
[2020-03-14] MEDS: PROMETHAZINE INJ 25 MG/ML VIAL (J2550) IV PRN (15:12)
[2020-03-14 16:00] VITALS: BP 130/76
[2020-03-14] MEDS: LevoFLOXacin IV 250 MG in IV 1 EA IV SCH (17:40)
[2020-03-14 20:00] VITALS: BP 156/72
[2020-03-14] MEDS ORDERED: PROHANCE 279.3MG/ML 15ML VIAL As Ordered ONE (20:17)
[2020-03-15] VITALS: BP 160/74
[2020-03-15] MEDS: LABETALOL 100MG/20ML VIAL IV SCH ×4 (03:00→21:00)
[2020-03-15 04:00] VITALS: BP 140/60
[2020-03-15 05:46] LABS: BASO % 0.4 % (0.0-1.0); EOS # 0.1 10^3/uL (0.0-0.5); HEMATOCRIT 34.1 % (36.0-47.0); HEMOGLOBIN 11.5 g/dl (12.0-15.5); LYMPH # 2.8 10^3/uL (1.5-5.0); LYMPH % 28.6 % (24.0-44.0); MEAN CORPUSCULAR HEMOGLOBIN 30.1 pg (27.0-33.0); MEAN CORPUSCULAR HGB CONC 33.7 g/dl (32.0-36.5); MEAN CORPUSCULAR VOLUME 89.3 fl (80.0-96.0); MONO # 1.2 10^3/uL (0.0-0.8); MONO % 12.6 % (0.0-5.0); NEUTROPHILS # 5.5 10^3/uL (1.5-8.5); NEUTROPHILS % 57.1 % (36.0-66.0); PLATELET COUNT, AUTOMATED 334 10^3/uL (150-450); RED BLOOD COUNT 3.82 10^6/uL (4.00-5.40); WHITE BLOOD COUNT 9.7 10^3/uL (4.0-10.0)
[2020-03-15 06:05] LABS: CALCIUM LEVEL 8.5 MG/DL (8.5-10.1); CREATININE FOR GFR 1.04 MG/DL (0.55-1.30); GLOMERULAR FILTRATION RATE 58.8 (>51); MAGNESIUM LEVEL 1.9 MG/DL (1.8-2.4); POTASSIUM SERUM 3.9 MEQ/L (3.5-5.1)
[2020-03-15] MEDS: SLF 3 ML SYR IV SCH ×3 (06:40→22:00)
[2020-03-15] MEDS: HEPARIN SOD (PORCINE) 5000UNITS/ML 1ML VIAL/SYRINGE SC SCH ×3 (06:40→22:34)
[2020-03-15 08:00] VITALS: BP 160/72
[2020-03-15] MEDS: LEVEMIR (INSULIN DETEMIR) 1 UNITS/0.01ML SC SCH (08:44)
[2020-03-15] MEDS: ASPIRIN 81 MG CHEW TABLET PO SCH (08:44)
[2020-03-15] MEDS: gemfibroziL 600 MG TAB PO SCH ×3 (08:45→22:33)
[2020-03-15] MEDS: CLOPIDOGREL 75 MG TAB PO SCH (08:45)
[2020-03-15] MEDS: ATORVASTATIN 20 MG TAB PO SCH (08:45)
[2020-03-15] MEDS: HumaLOG INSULIN (NovoLOG) PER UNIT SC SCH ×4 (08:45→21:00)
[2020-03-15] MEDS: amLODIPine 10 MG TAB PO SCH (08:45)
[2020-03-15] MEDS: PANTOPRAZOLE 40MG TAB (PROTONIX) PO SCH ×2 (08:45→22:34)
[2020-03-15] MEDS: LEVOTHYROXINE 25MCG TABLET (0.025MG) PO SCH (08:46)
[2020-03-15] MEDS: lisinopriL 10 MG TAB PO SCH (08:46)
[2020-03-15] MEDS: METOPROLOL TART 25 MG TABLET PO SCH ×2 (08:46→22:33)
[2020-03-15] MEDS: DULoxetine 30 MG CAP (CYMBALTA) PO SCH (08:46)
[2020-03-15] MEDS: EZETIMIBE 10 MG TAB (ZETIA) PO SCH (08:47)
[2020-03-15] MEDS: MECLIZINE 25 MG TABLET PO PRN ×2 (08:56→17:28)
--- NOTE | 2020-03-15 10:53 | REP ---
REPEAT DICTATION MR ANGIOGRAPHY OF THE CAROTIDS WITHOUT AND WITH IV GADOLINIUM: HISTORY: Acute cervicomedullary junction infarct. Preliminary report is provided at the time of the exam by [facility]. COMPARISON: MRI study March 11, 2020. TECHNIQUE: MR angiography of the neck is acquired with pre- and postcontrast imaging. Contrast enhancement dose is 25 mL of intravenous ProHance. MR ANGIOGRAPHIC FINDINGS: The visualized aortic arch and great vessel origins are unremarkable. The common carotid arteries are widely patent and intact bilaterally. Carotid bifurcations show no evidence of focal stenosis. The internal carotid arteries are widely patent bilaterally. The left vertebral artery is dominant. There is a distal vertebral artery stenosis on the left, however, moderate in degree, 50-70%. The basilar artery is widely patent. The right vertebral artery is diminutive proximally and occluded or absent distally. Posterior cerebral and superior cerebellar arteries appear patent bilaterally. IMPRESSION: The distal aspect of the right vertebral artery is occluded. The right vertebral artery is small compared to the left. There is a moderate stenosis involving the distal left vertebral artery. Electronically Signed by Cecilio Khoury MD 03/15/2020 01:10 P
[2020-03-15 11:28] VITALS: BP 148/76
--- NOTE | 2020-03-15 14:50 | IPNPDOC ---
Text Note Date of Service The patient was seen on 03/15/20. NOTE Subjective: Pt with dizziness while working with PT. No CP/SOB/palpitations. Physical Exam - Vitals:As below - General: Lying in bed, Speaking in full sentences, AAOx3 - HEENT: NC, AT, PERRLA, Horizontal nystagmus present. - CVS: RRR, +S1S2, no rub, murmur or gallop - Lungs: Fair air entry bilaterally, No appreciable wheezing / rales / rhonchi - Abdomen: Soft, Non-distended, Non-tender - Extremities: No lower extremity edema, No calf tenderness - Neuro: 5/5 strength at upper / lower extremities bilaterally, CN2-12 grossly intact , AAOx3 No focal def Labs Reviewed IMAGING: MRI: Acute lacunar infarct involving the right cervicomedullary junction. MRA Carotids: IMPRESSION: The distal aspect of the right vertebral artery is occluded. The right vertebral artery is small compared to the left. There is a moderate stenosis involving the distal left vertebral artery . Carotid doppler: 1. According to the SRU criteria, there is less than 50% stenosis of the internal carotid artery bilaterally. This is secondary to both calcified and noncalcified plaque formation . 2. Possible early right-sided subclavian steal syndrome. Echo IMPRESSION: 1. Normal global left ventricular systolic and diastolic function. 2. Aortic valve sclerosis without stenosis or aortic regurgitation. 3. Trace mitral regurgitation. 4. Interatrial septal aneurysm noted, but no evidence of cardiac shunt by Doppler. The patient my benefit from a bubble study in view of diagnosis of CVA. Assessment and plan: As per medical records: Patient is a 55-year-old female with a PMHx of CAD s/p stent / CABG, HTN, Hypothyroidism, DLP, Depression, who presented to the emergency room with complaints of numbness of the side of her right face and right leg , as well as nausea and vomiting and spinning of the room. Patient reported that on the morning of admission she woke up experiencing nausea and vomiting and then 2:00 in the afternoon she noted that she had right leg heaviness and right facial tingling. Upon arrival to emergency room, patient was evaluated by ER providers would noted that patient was hypertensive, with systolic blood pressures in the 200s. Was given IV medication to help control blood pressure. With medications there was some resolution of her nausea and vomiting. However she had persistent numbness and tingling in the right side of her face. CT scan was acquired and was negative for any acute infarcts. Hospitalist service was contacted for admission. 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 Causing persistent severe vertigo. Already On ASA, Plavix and statin. symptomatic management of vertigo with meclizine. Given MRA carotids and echo with ?intra-atrial septal aneusysm - plan for echo with bubble study. Discussed with Dr. Yi who will see pt. PT/OT. Vertigo due to acute posterior circulation stroke. Nausea and vomiting with spinning of the room horizontal nystagmus present Will have to rule out associated vestibular neuronitis/ labyrynthitis/BPPV Vestibular PT. Zofran and reglan. Meclizine prn. R facial numbness / R leg numbness rule out CVA Patient presented to the emergency room with complaints of numbness of her right face and leg associated with nausea and vomiting CT head 03/10: No acute intracranial abnormality. MRI Acute lacunar infarct in the right cervico- medullary junction. Neuro checks ECHO noted ASA, Plavix, Atorvastatin Hypertensive urgency -Improved. Will allow for permissive hypertension due to acute CVA metoprolol and lisinopril with hold parameters. Will continue with labetalol with specific holding parameters CAD s/p stent / CABG in 05/2019 c/w Plavix, ASA Patient reports that she has been on Coumadin till one month ago, but had stopped abruptly; is unclear why she was on Coumadin Hypothyroidism Levothyroxine IDDM2 Cont Levemir ISS and adjust dose of long acting insulin DLP Atorvastatin and Gemfibrozil Depression home meds. DVT prophylaxis Heparin VS,Fishbone, I+O VS, Fishbone, I+O Laboratory Tests 03/15/20 05:13 Vital Signs Date Time Temp Pulse Resp B/P (MAP) Pulse Ox O2 Delivery O2 Flow Rate FiO2 03/15/20 11:28 97.8 70 16 148/76 (100) 96 Room Air I&O- Last 24 Hours up to 6 AM 03/15/20 06:00 Intake Total 1080 ml Output Total 2850 ml Balance -1770 ml POORNIMA SUTTON MD Mar 15, 2020 14:50
[2020-03-15 16:00] VITALS: BP 144/72
[2020-03-15] MEDS: LevoFLOXacin IV 250 MG in IV 1 EA IV SCH (17:28)
[2020-03-15 20:00] VITALS: BP 152/70
[2020-03-16] VITALS: BP 130/70
[2020-03-16] MEDS: LABETALOL 100MG/20ML VIAL IV SCH ×4 (03:00→20:52)
[2020-03-16 04:00] VITALS: BP 140/79
[2020-03-16] MEDS: HEPARIN SOD (PORCINE) 5000UNITS/ML 1ML VIAL/SYRINGE SC SCH ×3 (05:38→20:57)
[2020-03-16] MEDS: SLF 3 ML SYR IV SCH ×3 (05:39→20:57)
[2020-03-16 06:03] LABS: BASO # 0.1 10^3/uL (0.0-0.2); BASO % 0.4 % (0.0-1.0); EOS # 0.2 10^3/uL (0.0-0.5); EOS % 1.4 % (0.0-3.0); HEMATOCRIT 35.4 % (36.0-47.0); HEMOGLOBIN 11.9 g/dl (12.0-15.5); LYMPH # 2.7 10^3/uL (1.5-5.0); LYMPH % 23.6 % (24.0-44.0); MEAN CORPUSCULAR HEMOGLOBIN 30.4 pg (27.0-33.0); MEAN CORPUSCULAR HGB CONC 33.6 g/dl (32.0-36.5); MEAN CORPUSCULAR VOLUME 90.5 fl (80.0-96.0); MONO # 1.3 10^3/uL (0.0-0.8); NEUTROPHILS # 7.3 10^3/uL (1.5-8.5); NEUTROPHILS % 63.3 % (36.0-66.0); PLATELET COUNT, AUTOMATED 336 10^3/uL (150-450); RED BLOOD COUNT 3.91 10^6/uL (4.00-5.40); WHITE BLOOD COUNT 11.6 10^3/uL (4.0-10.0)
[2020-03-16 06:22] LABS: CALCIUM LEVEL 8.9 MG/DL (8.5-10.1); CREATININE FOR GFR 1.08 MG/DL (0.55-1.30); GLOMERULAR FILTRATION RATE 56.3 (>51); MAGNESIUM LEVEL 1.9 MG/DL (1.8-2.4); POTASSIUM SERUM 4.2 MEQ/L (3.5-5.1)
[2020-03-16 08:00] VITALS: BP 176/86
[2020-03-16] MEDS: PANTOPRAZOLE 40MG TAB (PROTONIX) PO SCH ×2 (08:23→20:57)
[2020-03-16] MEDS: METOPROLOL TART 25 MG TABLET PO SCH ×2 (08:23→20:52)
[2020-03-16] MEDS: DULoxetine 30 MG CAP (CYMBALTA) PO SCH (08:24)
[2020-03-16] MEDS: CLOPIDOGREL 75 MG TAB PO SCH (08:24)
[2020-03-16] MEDS: ASPIRIN 81 MG CHEW TABLET PO SCH (08:24)
[2020-03-16] MEDS: ATORVASTATIN 20 MG TAB PO SCH (08:24)
[2020-03-16] MEDS: amLODIPine 10 MG TAB PO SCH (08:24)
[2020-03-16] MEDS: EZETIMIBE 10 MG TAB (ZETIA) PO SCH (08:24)
[2020-03-16] MEDS: lisinopriL 10 MG TAB PO SCH (08:25)
[2020-03-16] MEDS: LEVOTHYROXINE 25MCG TABLET (0.025MG) PO SCH (08:25)
[2020-03-16] MEDS: gemfibroziL 600 MG TAB PO SCH ×3 (08:25→20:57)
[2020-03-16] MEDS: LEVEMIR (INSULIN DETEMIR) 1 UNITS/0.01ML SC SCH (08:26)
[2020-03-16] MEDS: HumaLOG INSULIN (NovoLOG) PER UNIT SC SCH ×4 (08:26→20:29)
--- NOTE | 2020-03-16 09:01 | CR ---
DATE OF CONSULTATION: 03/15/[address] Yoel Goodman REASON FOR CONSULTATION Stroke. HISTORY OF PRESENT ILLNESS Joana Downey is a 55-year-old woman with history of coronary artery disease status post stent and CABG. She remained at her baseline state of health until she went to sleep on March 10, 2020. She woke up in the morning and felt dizzy with nausea and vomiting. As the day went by, she felt numbness and tingling of right side of face and right leg. She felt difficulty walking. She did not seek medical attention until 5 o'clock in the evening. Her called 911. Here she felt heaviness of right leg with numbness and tingling. Her systolic blood pressure in the ER was in the 200s. She also felt double vision. The double vision and imbalance persists. She denies any weakness of her arms and legs, dysphagia, dysarthria, falls, or loss of consciousness. She denied any headaches. PAST MEDICAL HISTORY Coronary artery disease status post stent and coronary artery bypass graft, diabetes, dyslipidemia, hypertension, acid reflux, hypothyroidism, depression. CURRENT MEDICATIONS Aspirin 81 mg p.o. daily, Plavix 75 p.o. daily, Lipitor 80 mg p.o. daily, Alogliptin 6.25 mg p.o. daily, Cymbalta 90 mg p.o. daily, Zetia 20 mg p.o. Daily, Lasix 40 mg p.o. daily, gemfibrozil 300 mg p.o. t.i.d., insulin Basaglar 40 units daily, lisinopril/hydrochlorothiazide 20/25 mg p.o daily, metoprolol 25 mg p.o. b.i.d., Protonix 40 mg p.o. b.i.d., vitamin D2 50,000 units p.o. daily ALLERGIES PENICILLIN, PREDNISONE. FAMILY HISTORY Mother had breast cancer. SOCIAL HISTORY She denies smoking, alcohol, or illicit drugs. REVIEW OF SYSTEMS All systems were reviewed and found to be noncontributory except as mentioned in History of Present Illness. PHYSICAL EXAMINATION Vital Signs: Temperature 97.8, pulse 60, blood pressure 144/72. Heart: Regular rate and rhythm. Lungs: Clear to auscultation. Abdomen soft, nontender, nondistended. Extremities: No pedal edema. No musculoskeletal abnormalities. No rash. No signs of meningeal irritation. Neurologic: The patient is awake, alert, oriented to place, person and time. Normal speech comprehension and repetition. Extraocular muscles are intact. She has left gaze evoked nystagmus. Tongue and uvula are midline. She has decreased cold touch sensation on right side of the face and right leg. She has decreased cold pinprick vibration sensation in her feet. She has severe right-sided dysmetria. Strength is 5/5 in all four extremities. Deep tendon reflexes are 1+ in arms and knees and absent at ankles. Her gait is ataxic. There is no tremor. DIAGNOSTIC STUDIES MRI scan of the brain showed right lateral medullary ischemic stroke and MRA brain and neck showed right vertebral artery occlusion. ASSESSMENT 1. 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 2. Right vertebral artery occlusion. 3. Diabetic peripheral neuropathy. 4. Coronary artery disease. PLAN 1. Echocardiogram and continue telemetry monitoring. 2. Fasting lipid profile. 3. Aspirin 81 mg p.o. daily and Plavix 75 mg p.o. daily. 4. Lipitor 80 mg p.o. daily. 5. Physical and occupational therapy and rehabilitation. 6. Check fasting lipid profile. 7. She will continue to use eye patch for double vision and nystagmus.
[2020-03-16 12:00] VITALS: BP 169/77
--- NOTE | 2020-03-16 13:37 | REP ---
REASON FOR EXAM: Paresthesias. Preliminary report given by [facility] at the time the examination was performed. There are no priors for comparison. There is a focal area of FLAIR hypersignal seen in the cervicomedullary junction on the right. This area is of DWI hypersignal mapping low signal consistent with an acute process. There are no other intracranial abnormalities. There is mild cerebral and cerebellar atrophy. The cerebral white matter is within normal limits for the patient's age. IMPRESSION: Finding, as described above, consistent with an acute recurrent infarct in the cervicomedullary junction on the right as described by the [facility] preliminary report and showing no additions to or extractions from that report. Unreviewed
[2020-03-16 16:00] VITALS: BP 170/74
--- NOTE | 2020-03-16 16:02 | IPNPDOC ---
Text Note Date of Service The patient was seen on 03/16/20. NOTE Subjective: Pt doing better with PT when wearing eye patch. No CP/SOB/palpita tions. Physical Exam - Vitals:As below - General: Lying in bed, Speaking in full sentences, AAOx3 - HEENT: NC, AT, PERRLA, Horizontal nystagmus present. - CVS: RRR, +S1S2, no rub, murmur or gallop - Lungs: Fair air entry bilaterally, No appreciable wheezing / rales / rhonchi - Abdomen: Soft, Non-distended, Non-tender - Extremities: No lower extremity edema, No calf tenderness - Neuro: 5/5 strength at upper / lower extremities bilaterally, CN2-12 grossly intact , AAOx3 No focal def Labs Reviewed IMAGING: MRI: Acute lacunar infarct involving the right cervicomedullary junction. MRA Carotids: IMPRESSION: The distal aspect of the right vertebral artery is occluded. The right vertebral artery is small compared to the left. There is a moderate stenosis involving the distal left vertebral artery . Carotid doppler: 1. According to the SRU criteria, there is less than 50% stenosis of the internal carotid artery bilaterally. This is secondary to both calcified and noncalcified plaque formation . 2. Possible early right-sided subclavian steal syndrome. Echo IMPRESSION: 1. Normal global left ventricular systolic and diastolic function. 2. Aortic valve sclerosis without stenosis or aortic regurgitation. 3. Trace mitral regurgitation. 4. Interatrial septal aneurysm noted, but no evidence of cardiac shunt by Doppler. The patient my benefit from a bubble study in view of diagnosis of CVA. Assessment and plan: As per medical records: Patient is a 55-year-old female with a PMHx of CAD s/p stent / CABG, HTN, Hypothyroidism, DLP, Depression, who presented to the emergency room with complaints of numbness of the side of her right face and right leg , as well as nausea and vomiting and spinning of the room. Patient reported that on the morning of admission she woke up experiencing nausea and vomiting and then 2:00 in the afternoon she noted that she had right leg heaviness and right facial tingling. Upon arrival to emergency room, patient was evaluated by ER providers would noted that patient was hypertensive, with systolic blood pressures in the 200s. Was given IV medication to help control blood pressure. With medications there was some resolution of her nausea and vomiting. However she had persistent numbness and tingling in the right side of her face. CT scan was acquired and was negative for any acute infarcts. Hospitalist service was contacted for admission. 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 Causing persistent severe vertigo. Already On ASA, Plavix and statin. symptomatic management of vertigo with meclizine. Given MRA carotids and echo with ?intra-atrial septal aneurysm -Echo with bubble study pending. Discussed with Dr. Yi who will see pt. PT/OT. Dr Yi Recc: ASSESSMENT 1. 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 2. Right vertebral artery occlusion. 3. Diabetic peripheral neuropathy. 4. Coronary artery disease. PLAN 1. Echocardiogram and continue telemetry monitoring. 2. Fasting lipid profile. 3. Aspirin 81 mg p.o. daily and Plavix 75 mg p.o. daily. 4. Lipitor 80 mg p.o. daily. 5. Physical and occupational therapy and rehabilitation. 6. Check fasting lipid profile. 7. She will continue to use eye patch for double vision and nystagmus. Vertigo due to acute posterior circulation stroke. Nausea and vomiting with spinning of the room horizontal nystagmus present Will have to rule out associated vestibular neuronitis/ labyrynthitis/BPPV Vestibular PT. Cristino and reglan. Meclizine prn. R facial numbness / R leg numbness rule out CVA Patient presented to the emergency room with complaints of numbness of her right face and leg associated with nausea and vomiting CT head 03/10: No acute intracranial abnormality. MRI Acute lacunar infarct in the right cervico- medullary junction. Neuro checks ECHO noted ASA, Plavix, Atorvastatin Hypertensive urgency -Improved. Will allow for permissive hypertension due to acute CVA metoprolol and lisinopril with hold parameters. Will continue with labetalol with specific holding parameters CAD s/p stent / CABG in 05/2019 c/w Plavix, ASA Patient reports that she has been on Coumadin till one month ago, but had stopped abruptly; is unclear why she was on Coumadin Hypothyroidism Levothyroxine IDDM2 Cont Levemir ISS and adjust dose of long acting insulin DLP Atorvastatin and Gemfibrozil Depression home meds. DVT prophylaxis Heparin Plan to d/c to ARU in the next 24 hrs. VS,Fishbone, I+O VS, Fishbone, I+O Laboratory Tests 03/16/20 05:24 Vital Signs Date Time Temp Pulse Resp B/P (MAP) Pulse Ox O2 Delivery O2 Flow Rate FiO2 03/16/20 15:00 61 111/55 03/16/20 12:00 96.8 20 96 Room Air I&O- Last 24 Hours up to 6 AM 03/16/20 06:00 Intake Total 830 ml Output Total 1800 ml Balance -970 ml POORNIMA SUTTON MD Mar 16, 2020 16:02
[2020-03-16] MEDS: LevoFLOXacin IV 250 MG in IV 1 EA IV SCH (18:19)
[2020-03-16 20:00] VITALS: BP 142/86
[2020-03-17] VITALS: BP 152/90
[2020-03-17] MEDS: LABETALOL 100MG/20ML VIAL IV SCH ×2 (02:35→09:00)
[2020-03-17 04:00] VITALS: BP 142/84
[2020-03-17 05:50] LABS: BASO % 0.2 % (0.0-1.0); EOS # 0.1 10^3/uL (0.0-0.5); EOS % 0.4 % (0.0-3.0); HEMATOCRIT 34.8 % (36.0-47.0); HEMOGLOBIN 11.8 g/dl (12.0-15.5); LYMPH # 1.7 10^3/uL (1.5-5.0); LYMPH % 10.6 % (24.0-44.0); MEAN CORPUSCULAR HEMOGLOBIN 30.5 pg (27.0-33.0); MEAN CORPUSCULAR HGB CONC 33.9 g/dl (32.0-36.5); MEAN CORPUSCULAR VOLUME 89.9 fl (80.0-96.0); MONO # 1.6 10^3/uL (0.0-0.8); MONO % 10.1 % (0.0-5.0); NEUTROPHILS # 12.7 10^3/uL (1.5-8.5); NEUTROPHILS % 78.1 % (36.0-66.0); PLATELET COUNT, AUTOMATED 370 10^3/uL (150-450); RED BLOOD COUNT 3.87 10^6/uL (4.00-5.40); WHITE BLOOD COUNT 16.3 10^3/uL (4.0-10.0)
[2020-03-17 06:10] LABS: CREATININE FOR GFR 1.17 MG/DL (0.55-1.30); GLOMERULAR FILTRATION RATE 51.3 (>51); MAGNESIUM LEVEL 1.8 MG/DL (1.8-2.4); POTASSIUM SERUM 3.9 MEQ/L (3.5-5.1)
[2020-03-17] MEDS: SLF 3 ML SYR IV SCH (06:33)
[2020-03-17] MEDS: HEPARIN SOD (PORCINE) 5000UNITS/ML 1ML VIAL/SYRINGE SC SCH (06:33)
[2020-03-17] MEDS: HumaLOG INSULIN (NovoLOG) PER UNIT SC SCH (07:30)
[2020-03-17 08:00] VITALS: BP 146/82
--- NOTE | 2020-03-17 08:58 | ECHO ---
DATE OF PROCEDURE: 03/15/2020 REFERRING PHYSICIAN: REASON FOR STUDY: Cerebrovascular accident (CVA). 2D MEASUREMENTS: Please refer to prior and recent echocardiogram on 03/11/2020 for the measurements. 1. Normal left ventricular size and systolic function with an with an estimated LVEF of 65-70%. Subjectively, there is mild concentric left ventricular hypertrophy. 2. Subjectively, the left atrium appeared to be mildly enlarged. Normal right atrium and right ventricle. 3. The atrial septum appeared to be normal without evidence of defect or shunt. 4. Normal aortic root. 5. No pericardial effusion seen. 6. Mildly calcified aortic valve with normal leaflet excursion. The mitral valve, the aortic valve, the tricuspid valve, and the pulmonic valve appeared to be normal. The proximal pulmonary artery branches also appear to be normal. 7. The inferior vena cava was not well visualized. 8. Bubble study done with agitated normal saline was limited but no bubble was detected in the left heart chambers. DOPPLER: Only trace mitral regurgitation and trace tricuspid regurgitation detected. IMPRESSION: 1. Please refer to echocardiogram done on 03/11/2020 for details about measurements. 2. Normal left ventricular systolic function. 3. No significant valvular heart disease. 4. Negative bubble study for intracardiac shunt but was limited. MTDD
--- NOTE | 2020-03-17 09:10 | REP ---
Portable chest x-ray: Single view. History: Leukocytosis. Comparison chest x-ray: March 10, 2020. Findings: Monitoring electrodes overlie the chest. Median sternotomy wires are visible. No infiltrate is seen in the lung jerome. The pleural angles are sharp. There is evidence of coronary artery stent material. The heart is not enlarged. Pulmonary vasculature is not increased. Impression: No infiltrates seen. No acute disease. Electronically Signed by Cecilio Khoury MD 03/17/2020 09:02 A
[2020-03-17] MEDS: PANTOPRAZOLE 40MG TAB (PROTONIX) PO SCH (09:12)
[2020-03-17] MEDS: amLODIPine 10 MG TAB PO SCH (09:12)
[2020-03-17 09:13] VITALS: BP 146/82
[2020-03-17] MEDS: lisinopriL 10 MG TAB PO SCH (09:13)
[2020-03-17] MEDS: LEVOTHYROXINE 25MCG TABLET (0.025MG) PO SCH (09:13)
[2020-03-17] MEDS: DULoxetine 30 MG CAP (CYMBALTA) PO SCH (09:13)
[2020-03-17] MEDS: METOPROLOL TART 25 MG TABLET PO SCH (09:13)
[2020-03-17] MEDS: gemfibroziL 600 MG TAB PO SCH (09:13)
[2020-03-17] MEDS: EZETIMIBE 10 MG TAB (ZETIA) PO SCH (09:14)
[2020-03-17] MEDS: ATORVASTATIN 20 MG TAB PO SCH (09:14)
[2020-03-17] MEDS: CLOPIDOGREL 75 MG TAB PO SCH (09:14)
[2020-03-17] MEDS: LEVEMIR (INSULIN DETEMIR) 1 UNITS/0.01ML SC SCH (09:15)
[2020-03-17] MEDS: ASPIRIN 81 MG CHEW TABLET PO SCH (09:15)
--- NOTE | 2020-03-17 10:54 | IPNPDOC ---
Text Note Date of Service The patient was seen on 03/17/20. NOTE Subjective: Pt not tolerating diet; aspiration with ST. + cough. No CP/SOB/pa lpitations. NPO pending ST eval. Physical Exam - Vitals:As below - General: Lying in bed, Speaking in full sentences, AAOx3 - HEENT: NC, AT, PERRLA, Horizontal nystagmus present. - CVS: RRR, +S1S2, no rub, murmur or gallop - Lungs: Fine crackles right base. Diminished right base. No wheezing/rhonchi. - Abdomen: Soft, Non-distended, Non-tender - Extremities: No lower extremity edema, No calf tenderness - Neuro: 5/5 strength at upper / lower extremities bilaterally, CN2-12 grossly intact , AAOx3 No focal def Labs Reviewed IMAGING: MRI: Acute lacunar infarct involving the right cervicomedullary junction. MRA Carotids: IMPRESSION: The distal aspect of the right vertebral artery is occluded. The right vertebral artery is small compared to the left. There is a moderate stenosis involving the distal left vertebral artery . Carotid doppler: 1. According to the SRU criteria, there is less than 50% stenosis of the internal carotid artery bilaterally. This is secondary to both calcified and noncalcified plaque formation . 2. Possible early right-sided subclavian steal syndrome. Echo IMPRESSION: 1. Normal global left ventricular systolic and diastolic function. 2. Aortic valve sclerosis without stenosis or aortic regurgitation. 3. Trace mitral regurgitation. 4. Interatrial septal aneurysm noted, but no evidence of cardiac shunt by Doppler. The patient my benefit from a bubble study in view of diagnosis of CVA. Assessment and plan: As per medical records: Patient is a 55-year-old female with a PMHx of CAD s/p stent / CABG, HTN, Hypothyroidism, DLP, Depre ssion, who presented to the emergency room with complaints of numbness of the side of her right face and right leg , as well as nausea and vomiting and spinning of the room. Patient reported that on the morning of admission she woke up experiencing nausea and vomiting and then 2:00 in the afternoon she noted that she had right leg heaviness and right facial tingling. Upon arrival to emergency room, patient was evaluated by ER providers would noted that patient was hypertensive, with systolic blood pressures in the 200s. Was given IV medication to help control blood pressure. With medications there was some resolution of her nausea and vomiting. However she had persistent numbness and tingling in the right side of her face. CT scan was acquired and was negative for any acute infarcts. Hospitalist service was contacted for admission. She now with persistent vertigo Aspiration - Likely developing PNA - Check CXR - Cont levaquin; add flagyl -ST to re-eval diet - leukocytosis noted - Afebrile. Acute Ischemic CVA affecting the right cervico-medullary junction Her right vertebral artery appears to be occluded. Causing persistent severe vertigo. Already On ASA, Plavix and statin. symptomatic management of vertigo with meclizine. Given MRA carotids and echo with ?intra-atrial septal aneurysm -Echo with bubble study with no bubbles noted in left chambers. Discussed with Dr. Yi who will see pt. PT/OT. Dr Yi Recc: ASSESSMENT 1. 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 2. Right vertebral artery occlusion. 3. Diabetic peripheral neuropathy. 4. Coronary artery disease. PLAN 1. Echocardiogram and continue telemetry monitoring. 2. Fasting lipid profile. 3. Aspirin 81 mg p.o. daily and Plavix 75 mg p.o. daily. 4. Lipitor 80 mg p.o. daily. 5. Physical and occupational therapy and rehabilitation. 6. Check fasting lipid profile. 7. She will continue to use eye patch for double vision and nystagmus. Vertigo due to acute posterior circulation stroke. Nausea and vomiting with spinning of the room horizontal nystagmus present Will have to rule out associated vestibular neuronitis/ labyrynthitis/BPPV Vestibular PT. Cristino and reglan. Meclizine prn. R facial numbness / R leg numbness rule out CVA Patient presented to the emergency room with complaints of numbness of her right face and leg associated with nausea and vomiting CT head 03/10: No acute intracranial abnormality. MRI Acute lacunar infarct in the right cervico- medullary junction. Neuro checks ECHO noted ASA, Plavix, Atorvastatin Hypertensive urgency -Improved. Will allow for permissive hypertension due to acute CVA metoprolol and lisinopril with hold parameters. Will continue with labetalol with specific holding parameters CAD s/p stent / CABG in 05/2019 c/w Plavix, ASA Patient reports that she has been on Coumadin till one month ago, but had stopped abruptly; is unclear why she was on Coumadin Hypothyroidism Levothyroxine IDDM2 Cont Levemir ISS and adjust dose of long acting insulin DLP Atorvastatin and Gemfibrozil Depression home meds. DVT prophylaxis Heparin Plan to d/c to ARU when medically stable. VS,Fishbone, I+O VS, Fishbone, I+O Laboratory Tests 03/17/20 05:31 Vital Signs Date Time Temp Pulse Resp B/P (MAP) Pulse Ox O2 Delivery O2 Flow Rate FiO2 03/17/20 09:13 146/82 03/17/20 09:13 90 03/17/20 08:00 98.7 22 96 03/17/20 04:00 Room Air I&O- Last 24 Hours up to 6 AM 03/17/20 06:00 Intake Total 90 ml Output Total 2450 ml Balance -2360 ml POORNIMA SUTTON MD Mar 17, 2020 10:54
[2020-03-17] MEDS ORDERED: metroNIDAZOLE 500 MG in IV 1 EA IV SCH (11:00)
[2020-03-17] MEDS ORDERED: HumaLOG INSULIN (NovoLOG) PER UNIT SC SCH (12:00)
[2020-03-19] MEDS ORDERED: metroNIDAZOLE (FLAGYL) 500MG TABLET ONE ×3 (03:47→21:59)
[2020-03-19] MEDS ORDERED: LevoFLOXacin 250 MG TABLET ONE (06:25)
[2020-03-19] MEDS ORDERED: HEPARIN SOD (PORCINE) 5000UNITS/ML 1ML VIAL/SYRINGE ONE ×3 (06:25→21:59)
[2020-03-19] MEDS ORDERED: CLOPIDOGREL 75 MG TAB ONE (09:25)
[2020-03-19] MEDS ORDERED: LEVOTHYROXINE 25MCG TABLET (0.025MG) ONE (09:25)
[2020-03-19] MEDS ORDERED: lisinopriL 10 MG TAB ONE (09:25)
[2020-03-19] MEDS ORDERED: EZETIMIBE 10 MG TAB (ZETIA) ONE (09:25)
[2020-03-19] MEDS ORDERED: PANTOPRAZOLE 40MG TAB (PROTONIX) ONE ×2 (09:25→21:59)
[2020-03-19] MEDS ORDERED: amLODIPine 10 MG TAB ONE (09:25)
[2020-03-19] MEDS ORDERED: HumaLOG INSULIN (NovoLOG) PER UNIT ONE ×3 (09:25→18:22)
[2020-03-19] MEDS ORDERED: LEVEMIR (INSULIN DETEMIR) 1 UNITS/0.01ML ONE (09:25)
[2020-03-19] MEDS ORDERED: MECLIZINE 25 MG TABLET ONE (09:25)
[2020-03-19] MEDS ORDERED: gemfibroziL 600 MG TAB ONE ×3 (09:25→21:59)
[2020-03-19] MEDS ORDERED: ATORVASTATIN 20 MG TAB ONE (09:25)
[2020-03-19] MEDS ORDERED: DULoxetine 30 MG CAP (CYMBALTA) ONE (09:25)
[2020-03-19] MEDS ORDERED: ASPIRIN 81 MG CHEW TABLET ONE (09:25)
[2020-03-19] MEDS ORDERED: HumaLOG INSULIN (NovoLOG) PER UNIT As Ordered ONE ×2 (09:27→13:03)
[2020-03-19] MEDS ORDERED: levETIRAcetam 250MG TABLET (KEPPRA) ONE (11:30)
[2020-03-19] MEDS ORDERED: metroNIDAZOLE (FLAGYL) 500MG TABLET As Ordered ONE (13:03)
[2020-03-20] MEDS ORDERED: metroNIDAZOLE (FLAGYL) 500MG TABLET ONE (05:13)
[2020-03-20] MEDS ORDERED: LevoFLOXacin 500 MG TABLET ONE (05:13)
[2020-03-20] MEDS ORDERED: HEPARIN SOD (PORCINE) 5000UNITS/ML 1ML VIAL/SYRINGE ONE ×2 (05:13→15:02)
[2020-03-20] MEDS ORDERED: ASPIRIN 325 MG TAB ONE (10:24)
[2020-03-20] MEDS ORDERED: CLOPIDOGREL 75 MG TAB ONE (10:24)
[2020-03-20] MEDS ORDERED: LEVEMIR (INSULIN DETEMIR) 1 UNITS/0.01ML ONE (10:24)
[2020-03-20] MEDS ORDERED: LEVOTHYROXINE 25MCG TABLET (0.025MG) ONE (10:24)
[2020-03-20] MEDS ORDERED: amLODIPine 10 MG TAB ONE (10:24)
[2020-03-20] MEDS ORDERED: HumaLOG INSULIN (NovoLOG) PER UNIT ONE ×2 (10:24→17:10)
[2020-03-20] MEDS ORDERED: ATORVASTATIN 20 MG TAB ONE (10:24)
[2020-03-20] MEDS ORDERED: PANTOPRAZOLE 40MG TAB (PROTONIX) ONE (10:24)
[2020-03-20] MEDS ORDERED: DULoxetine 30 MG CAP (CYMBALTA) ONE (10:24)
[2020-03-20] MEDS ORDERED: EZETIMIBE 10 MG TAB (ZETIA) ONE (10:24)
[2020-03-20] MEDS ORDERED: gemfibroziL 600 MG TAB ONE ×2 (10:24→17:10)
[2020-03-20] MEDS ORDERED: HumaLOG INSULIN (NovoLOG) PER UNIT As Ordered ONE (12:48)
[2020-03-20] MEDS ORDERED: PANTOPRAZOLE 40MG TAB (PROTONIX) As Ordered ONE (21:46)
[2020-03-20] MEDS ORDERED: gemfibroziL 600 MG TAB As Ordered ONE (21:46)
[2020-03-20] MEDS ORDERED: METOPROLOL TART 25 MG TABLET As Ordered ONE (21:46)
[2020-03-20] MEDS ORDERED: HEPARIN SOD (PORCINE) 5000UNITS/ML 1ML VIAL/SYRINGE As Ordered ONE (21:46)
[2020-03-20] MEDS ORDERED: metroNIDAZOLE (FLAGYL) 500MG TABLET As Ordered ONE (21:46)
[2020-03-21] MEDS ORDERED: metroNIDAZOLE (FLAGYL) 500MG TABLET As Ordered ONE (06:00)
[2020-03-21] MEDS ORDERED: LevoFLOXacin 500 MG TABLET As Ordered ONE (06:00)
[2020-03-21] MEDS ORDERED: HEPARIN SOD (PORCINE) 5000UNITS/ML 1ML VIAL/SYRINGE As Ordered ONE (06:00)
[2020-03-21] MEDS ORDERED: ATORVASTATIN 20 MG TAB As Ordered ONE (08:15)
[2020-03-21] MEDS ORDERED: HumaLOG INSULIN (NovoLOG) PER UNIT As Ordered ONE ×2 (08:16→12:41)
[2020-03-21] MEDS ORDERED: ASPIRIN 325 MG TAB As Ordered ONE (08:16)
[2020-03-21] MEDS ORDERED: gemfibroziL 600 MG TAB As Ordered ONE (08:17)
[2020-03-21] MEDS ORDERED: LEVOTHYROXINE 25MCG TABLET (0.025MG) As Ordered ONE (08:17)
[2020-03-21] MEDS ORDERED: PANTOPRAZOLE 20 MG TAB As Ordered ONE (08:17)
[2020-03-21] MEDS ORDERED: amLODIPine 10 MG TAB As Ordered ONE (08:17)
[2020-03-21] MEDS ORDERED: EZETIMIBE 10 MG TAB (ZETIA) As Ordered ONE (08:18)
[2020-03-21] MEDS ORDERED: DULoxetine 30 MG CAP (CYMBALTA) As Ordered ONE (08:18)
[2020-03-21] MEDS ORDERED: CLOPIDOGREL 75 MG TAB As Ordered ONE (08:18)
[2020-03-21] MEDS ORDERED: LEVEMIR (INSULIN DETEMIR) 1 UNITS/0.01ML As Ordered ONE (08:20)
[2020-03-21] MEDS ORDERED: metroNIDAZOLE (FLAGYL) 500MG TABLET ONE (11:30)
[2020-03-21] MEDS ORDERED: MECLIZINE 12.5 MG TAB ONE (11:30)
[2020-03-23] MEDS ORDERED: LACTOBACILLUS ACIDOPHILUS CAP (BACID) As Ordered ONE (20:58)
[2020-03-23] MEDS ORDERED: METOPROLOL SUCC *XL* 25MG TAB (TopROL *XL*) As Ordered ONE (20:58)
[2020-03-23] MEDS ORDERED: guaiFENesin 200 MG TAB As Ordered ONE (20:58)
[2020-03-23] MEDS ORDERED: HEPARIN SOD (PORCINE) 5000UNITS/ML 1ML VIAL/SYRINGE As Ordered ONE (21:16)
[2020-03-23] MEDS ORDERED: PANTOPRAZOLE 40MG TAB (PROTONIX) As Ordered ONE (21:20)
[2020-03-26] MEDS ORDERED: amLODIPine 10 MG TAB As Ordered ONE (09:00)
[2020-03-26] MEDS ORDERED: CLOPIDOGREL 75 MG TAB As Ordered ONE (09:00)
[2020-03-26] MEDS ORDERED: guaiFENesin 200 MG TAB As Ordered ONE (09:00)
[2020-03-26] MEDS ORDERED: LACTOBACILLUS ACIDOPHILUS CAP (BACID) As Ordered ONE (09:01)
[2020-03-26] MEDS ORDERED: DOCUSATE SODIUM 100 MG CAP As Ordered ONE (09:01)
[2020-03-26] MEDS ORDERED: ATORVASTATIN 20 MG TAB As Ordered ONE (09:01)
[2020-03-26] MEDS ORDERED: ASPIRIN 81 MG CHEW TABLET As Ordered ONE (09:01)
[2020-03-26] MEDS ORDERED: PANTOPRAZOLE 40MG TAB (PROTONIX) As Ordered ONE (09:02)
[2020-03-26] MEDS ORDERED: lisinopriL 10 MG TAB As Ordered ONE (09:02)
[2020-03-26] MEDS ORDERED: ONDANSETRON 4 MG ORAL DISINTEGRATING TAB As Ordered ONE ×2 (09:02→12:49)
[2020-03-26] MEDS ORDERED: DULoxetine 30 MG CAP (CYMBALTA) As Ordered ONE (09:02)
[2020-03-26] MEDS ORDERED: HumaLOG INSULIN (NovoLOG) PER UNIT As Ordered ONE (09:02)
[2020-03-26] MEDS ORDERED: METOPROLOL TART 25 MG TABLET As Ordered ONE (09:02)
[2020-03-26] MEDS ORDERED: HEPARIN SOD (PORCINE) 5000UNITS/ML 1ML VIAL/SYRINGE As Ordered ONE (09:02)
[2020-03-26] MEDS ORDERED: LEVEMIR (INSULIN DETEMIR) 1 UNITS/0.01ML As Ordered ONE (09:03)
[2020-04-27 12:32] LABS: HEMOGLOBIN 12.3 g/dl (12.0-15.5); MEAN CORPUSCULAR HEMOGLOBIN 30.4 pg (27.0-33.0); MEAN CORPUSCULAR HGB CONC 33.2 g/dl (32.0-36.5); MEAN CORPUSCULAR VOLUME 91.4 fl (80.0-96.0); PLATELET COUNT, AUTOMATED 429 10^3/uL (150-450); RED BLOOD COUNT 4.05 10^6/uL (4.00-5.40); WHITE BLOOD COUNT 10.4 10^3/uL (4.0-10.0)
[2020-05-03 14:27] LABS: CREATININE FOR GFR 1.13 MG/DL (0.55-1.30); GLOMERULAR FILTRATION RATE 53.4 (>51); POTASSIUM SERUM 3.7 MEQ/L (3.5-5.1)
[2020-05-03 14:28] LABS: CALCIUM LEVEL 8.8 MG/DL (8.5-10.1)
[2020-06-19 10:41] LABS: CALCIUM LEVEL 8.8 MG/DL (8.5-10.1); CREATININE FOR GFR 1.35 MG/DL (0.55-1.30); GLOMERULAR FILTRATION RATE 43.5 (>51); POTASSIUM SERUM 4.2 MEQ/L (3.5-5.1)
== END 2020-03-21 07:55 | disposition home or self-care (01) | DRG 45 ==
LOC: M ED 18:45 → EDBD 18:45 → ENRESERV 03-11 01:45 → M PCU 03-11 03:10
PROVIDERS: ADMIT Internal Medicine; ATTEND Family Medicine
DX: I63.211 Cerebral infarction due to unspecified occlusion or stenosis of right vertebral artery (principal); J18.9 Pneumonia, unspecified organism; E11.42 Type 2 diabetes mellitus with diabetic polyneuropathy; I25.10 Atherosclerotic heart disease of native coronary artery without angina pectoris; I10 Essential (primary) hypertension; E03.9 Hypothyroidism, unspecified; E78.5 Hyperlipidemia, unspecified; G46.3 Brain stem stroke syndrome; I16.0 Hypertensive urgency; R42 Dizziness and giddiness; F32.9 Major depressive disorder, single episode, unspecified; R20.0 Anesthesia of skin; Z88.0 Allergy status to penicillin; Z88.8 Allergy status to other drugs, medicaments and biological substances; Z95.5 Presence of coronary angioplasty implant and graft; Z79.02 Long term (current) use of antithrombotics/antiplatelets; Z79.899 Other long term (current) drug therapy; Z79.4 Long term (current) use of insulin

== ENCOUNTER 2020-03-16 14:45 | Inpatient (IN) | payer OTHER ==
[~2020-03-16 14:45] MED LIST: ACET-907 PO; ALOG6.25; ALOG6.25 PO; AMLO10TA5; AMLO10TA5 PO; ATOR80TA59; ATOR80TA59 PO; BASA100I SC; CLOP75TA2; DULO1CAP5; DULO1CAP6; DULO1CAP6 PO; DULO30CA9 PO; EZET10TA21; EZET10TA21 PO; FURO40TA2; FURO40TA2 PO; GEMF600T5; GEMF600T5 PO; LEVO25TA5; LISI20TA20; LISI20TA20 PO; MAPA325T8; MECL1TAB31 PO; METO1TAB87; METO25TA4 PO; PANT-23 PO; PANT40TA3; PLAV1TAB2 PO; SYNT25TA PO; VITA50005; VITA50005 PO; WARF-20
[2020-03-16] MEDS ORDERED: GLUCAGON INJ 1MG VIAL SC PRN (15:00)
[2020-03-16] MEDS ORDERED: **hydrALAZINE HCL** 25 MG TAB PO SCH (15:00)
[2020-03-16] MEDS ORDERED: GLUCOSE 4GM CHEW TABLET PO PRN (15:00)
[2020-03-16] MEDS ORDERED: HEPARIN SOD (PORCINE) 5000UNITS/ML VIAL (J1644 PER 1000UNITS) SC SCH (15:00)
[2020-03-16] MEDS ORDERED: DEXTROSE 50% 50 ML SYRINGE IV PRN (15:00)
[2020-03-16] MEDS ORDERED: ACETAMINOPHEN TAB 650MG DOSE (2X325MG) PO PRN (15:00)
[2020-03-16] MEDS ORDERED: REMEDY PHYTOPLEX Z-GUARD PASTE 113GM TUBE (FROM STOREROOM PRODUCT) TOP SCH (16:00)
[2020-03-16] MEDS ORDERED: MECLIZINE 25 MG TABLET PO SCH (16:00)
[2020-03-16] MEDS ORDERED: gemfibroziL 600 MG TAB PO SCH (16:00)
[2020-03-16] MEDS ORDERED: HumaLOG INSULIN (NovoLOG) PER UNIT SC SCH ×2 (17:30→21:00)
[2020-03-16] MEDS ORDERED: PANTOPRAZOLE 40MG TAB (PROTONIX) PO SCH (21:00)
[2020-03-16] MEDS ORDERED: METOPROLOL TART 25 MG TABLET PO SCH (21:00)
[2020-03-16] MEDS ORDERED: SENNA 8.6 MG TAB (SENOKOT) PO SCH (21:00)
[2020-03-16] MEDS ORDERED: DOCUSATE SODIUM 100 MG CAP PO SCH (21:00)
[2020-03-17] MEDS ORDERED: LEVOTHYROXINE 25MCG TABLET (0.025MG) PO SCH (06:00)
[2020-03-17] MEDS ORDERED: LevoFLOXacin 250 MG TABLET PO ONE (06:00)
[2020-03-17] MEDS ORDERED: CLOPIDOGREL 75 MG TAB PO SCH (09:00)
[2020-03-17] MEDS ORDERED: ASPIRIN 81 MG ENTERIC TAB PO SCH (09:00)
[2020-03-17] MEDS ORDERED: LEVEMIR (INSULIN DETEMIR) 1 UNITS/0.01ML SC SCH (09:00)
[2020-03-17] MEDS ORDERED: DULoxetine 30 MG CAP (CYMBALTA) PO SCH (09:00)
[2020-03-17] MEDS ORDERED: lisinopriL 10 MG TAB PO SCH (09:00)
[2020-03-17] MEDS ORDERED: ATORVASTATIN 20 MG TAB PO SCH (09:00)
[2020-03-17] MEDS ORDERED: amLODIPine 10 MG TAB PO SCH (09:00)
[2020-03-17] MEDS ORDERED: EZETIMIBE 10 MG TAB (ZETIA) PO SCH (09:00)
[2020-03-19] MEDS ORDERED: gemfibroziL 600 MG TAB As Ordered ONE ×2 (18:22→21:59)
[2020-03-19] MEDS ORDERED: HumaLOG INSULIN (NovoLOG) PER UNIT As Ordered ONE (18:22)
[2020-03-19] MEDS ORDERED: PANTOPRAZOLE 40MG TAB (PROTONIX) As Ordered ONE (21:59)
[2020-03-19] MEDS ORDERED: HEPARIN SOD (PORCINE) 5000UNITS/ML VIAL (J1644 PER 1000UNITS) As Ordered ONE (21:59)
[2020-03-19] MEDS ORDERED: metroNIDAZOLE (FLAGYL) 500MG TABLET As Ordered ONE (21:59)
[2020-03-20] MEDS ORDERED: HEPARIN SOD (PORCINE) 5000UNITS/ML VIAL (J1644 PER 1000UNITS) As Ordered ONE ×2 (05:13→15:02)
[2020-03-20] MEDS ORDERED: LevoFLOXacin 500 MG TABLET As Ordered ONE (05:13)
[2020-03-20] MEDS ORDERED: metroNIDAZOLE (FLAGYL) 500MG TABLET As Ordered ONE (05:13)
[2020-03-20] MEDS ORDERED: ATORVASTATIN 20 MG TAB As Ordered ONE (10:22)
[2020-03-20] MEDS ORDERED: ASPIRIN 325 MG TAB As Ordered ONE (10:24)
[2020-03-20] MEDS ORDERED: PANTOPRAZOLE 40MG TAB (PROTONIX) As Ordered ONE (10:24)
[2020-03-20] MEDS ORDERED: HumaLOG INSULIN (NovoLOG) PER UNIT As Ordered ONE ×2 (10:24→17:10)
[2020-03-20] MEDS ORDERED: LEVOTHYROXINE 25MCG TABLET (0.025MG) As Ordered ONE (10:25)
[2020-03-20] MEDS ORDERED: amLODIPine 10 MG TAB As Ordered ONE (10:25)
[2020-03-20] MEDS ORDERED: gemfibroziL 600 MG TAB As Ordered ONE ×2 (10:25→17:10)
[2020-03-20] MEDS ORDERED: CLOPIDOGREL 75 MG TAB As Ordered ONE (10:26)
[2020-03-20] MEDS ORDERED: EZETIMIBE 10 MG TAB (ZETIA) As Ordered ONE (10:26)
[2020-03-20] MEDS ORDERED: DULoxetine 30 MG CAP (CYMBALTA) As Ordered ONE (10:26)
[2020-03-20] MEDS ORDERED: LEVEMIR (INSULIN DETEMIR) 1 UNITS/0.01ML As Ordered ONE (10:28)
[2020-03-21] MEDS ORDERED: metroNIDAZOLE (FLAGYL) 500MG TABLET ONE (11:30)
[2020-03-21] MEDS ORDERED: MECLIZINE 12.5 MG TAB ONE (11:30)
[2020-03-21] MEDS ORDERED: HEPARIN SOD (PORCINE) 5000UNITS/ML VIAL (J1644 PER 1000UNITS) As Ordered ONE (21:03)
[2020-03-22] MEDS ORDERED: LEVOTHYROXINE 25MCG TABLET (0.025MG) As Ordered ONE (05:34)
[2020-03-22] MEDS ORDERED: HEPARIN SOD (PORCINE) 5000UNITS/ML VIAL (J1644 PER 1000UNITS) As Ordered ONE ×3 (05:34→21:42)
[2020-03-22] MEDS ORDERED: LACTOBACILLUS ACIDOPHILUS CAP (BACID) As Ordered ONE ×3 (08:22→21:41)
[2020-03-22] MEDS ORDERED: lisinopriL 10 MG TAB As Ordered ONE (08:23)
[2020-03-22] MEDS ORDERED: HumaLOG INSULIN (NovoLOG) PER UNIT As Ordered ONE ×2 (08:23→17:59)
[2020-03-22] MEDS ORDERED: METOPROLOL TART 25 MG TABLET As Ordered ONE ×2 (08:23→21:42)
[2020-03-22] MEDS ORDERED: LevoFLOXacin 250 MG TABLET As Ordered ONE (08:23)
[2020-03-22] MEDS ORDERED: LEVEMIR (INSULIN DETEMIR) 1 UNITS/0.01ML As Ordered ONE (08:24)
[2020-03-22] MEDS ORDERED: CLOPIDOGREL 75 MG TAB As Ordered ONE (08:33)
[2020-03-22] MEDS ORDERED: PANTOPRAZOLE 40MG TAB (PROTONIX) As Ordered ONE ×2 (08:33→21:41)
[2020-03-22] MEDS ORDERED: ATORVASTATIN 20 MG TAB As Ordered ONE (08:33)
[2020-03-22] MEDS ORDERED: amLODIPine 10 MG TAB As Ordered ONE (08:33)
[2020-03-22] MEDS ORDERED: DULoxetine 30 MG CAP (CYMBALTA) As Ordered ONE (08:34)
[2020-03-22] MEDS ORDERED: ASPIRIN 81 MG ENTERIC TAB As Ordered ONE (08:34)
[2020-03-22] MEDS ORDERED: guaiFENesin 200 MG TAB As Ordered ONE ×2 (17:58→21:41)
[2020-03-23] MEDS ORDERED: HEPARIN SOD (PORCINE) 5000UNITS/ML VIAL (J1644 PER 1000UNITS) As Ordered ONE ×2 (05:40→13:11)
[2020-03-23] MEDS ORDERED: LEVOTHYROXINE 25MCG TABLET (0.025MG) As Ordered ONE (05:40)
[2020-03-23] MEDS ORDERED: gemfibroziL 600 MG TAB ONE (09:00)
[2020-03-23] MEDS ORDERED: MECLIZINE 12.5 MG TAB ONE (09:00)
[2020-03-23] MEDS ORDERED: CLOPIDOGREL 75 MG TAB As Ordered ONE (09:18)
[2020-03-23] MEDS ORDERED: guaiFENesin 200 MG TAB As Ordered ONE ×2 (09:18→15:21)
[2020-03-23] MEDS ORDERED: ATORVASTATIN 20 MG TAB As Ordered ONE (09:19)
[2020-03-23] MEDS ORDERED: amLODIPine 10 MG TAB As Ordered ONE (09:19)
[2020-03-23] MEDS ORDERED: LACTOBACILLUS ACIDOPHILUS CAP (BACID) As Ordered ONE ×2 (09:19→15:21)
[2020-03-23] MEDS ORDERED: ASPIRIN 81 MG CHEW TABLET As Ordered ONE (09:19)
[2020-03-23] MEDS ORDERED: PANTOPRAZOLE 40MG TAB (PROTONIX) As Ordered ONE (09:20)
[2020-03-23] MEDS ORDERED: DULoxetine 30 MG CAP (CYMBALTA) As Ordered ONE (09:20)
[2020-03-23] MEDS ORDERED: lisinopriL 10 MG TAB As Ordered ONE (09:20)
[2020-03-23] MEDS ORDERED: METOPROLOL TART 25 MG TABLET As Ordered ONE (09:20)
[2020-03-23] MEDS ORDERED: HumaLOG INSULIN (NovoLOG) PER UNIT As Ordered ONE ×3 (09:20→17:03)
[2020-03-23] MEDS ORDERED: LEVEMIR (INSULIN DETEMIR) 1 UNITS/0.01ML As Ordered ONE (09:21)
[2020-03-23] MEDS ORDERED: EZETIMIBE 10 MG TAB (ZETIA) ONE (11:02)
[2020-03-23] MEDS ORDERED: ONDANSETRON 4 MG ORAL DISINTEGRATING TAB As Ordered ONE (13:38)
[2020-03-23] MEDS ORDERED: guaiFENesin 200 MG TAB ONE (20:59)
[2020-03-23] MEDS ORDERED: METOPROLOL SUCC *XL* 25MG TAB (TopROL *XL*) ONE (20:59)
[2020-03-23] MEDS ORDERED: LACTOBACILLUS ACIDOPHILUS CAP (BACID) ONE (20:59)
[2020-03-23] MEDS ORDERED: PANTOPRAZOLE 40MG TAB (PROTONIX) ONE (21:16)
[2020-03-23] MEDS ORDERED: HEPARIN SOD (PORCINE) 5000UNITS/ML VIAL (J1644 PER 1000UNITS) ONE (21:16)
[2020-03-24] MEDS ORDERED: HEPARIN SOD (PORCINE) 5000UNITS/ML VIAL (J1644 PER 1000UNITS) As Ordered ONE ×3 (06:11→20:48)
[2020-03-24] MEDS ORDERED: LEVOTHYROXINE 25MCG TABLET (0.025MG) As Ordered ONE (06:12)
[2020-03-24] MEDS ORDERED: ASPIRIN 81 MG CHEW TABLET As Ordered ONE (07:56)
[2020-03-24] MEDS ORDERED: CLOPIDOGREL 75 MG TAB As Ordered ONE (07:56)
[2020-03-24] MEDS ORDERED: LACTOBACILLUS ACIDOPHILUS CAP (BACID) As Ordered ONE ×3 (07:56→21:20)
[2020-03-24] MEDS ORDERED: amLODIPine 10 MG TAB As Ordered ONE (07:56)
[2020-03-24] MEDS ORDERED: ATORVASTATIN 20 MG TAB As Ordered ONE (07:56)
[2020-03-24] MEDS ORDERED: guaiFENesin 200 MG TAB As Ordered ONE ×3 (07:56→21:19)
[2020-03-24] MEDS ORDERED: DULoxetine 30 MG CAP (CYMBALTA) As Ordered ONE (07:57)
[2020-03-24] MEDS ORDERED: HumaLOG INSULIN (NovoLOG) PER UNIT As Ordered ONE ×3 (07:57→18:10)
[2020-03-24] MEDS ORDERED: PANTOPRAZOLE 40MG TAB (PROTONIX) As Ordered ONE ×2 (07:57→20:48)
[2020-03-24] MEDS ORDERED: LEVEMIR (INSULIN DETEMIR) 1 UNITS/0.01ML As Ordered ONE (07:58)
[2020-03-24] MEDS ORDERED: METOPROLOL TART 25 MG TABLET As Ordered ONE (07:58)
[2020-03-24] MEDS ORDERED: lisinopriL 10 MG TAB As Ordered ONE (08:06)
[2020-03-24] MEDS ORDERED: ONDANSETRON 4 MG ORAL DISINTEGRATING TAB As Ordered ONE ×4 (09:40→21:20)
[2020-03-24] MEDS ORDERED: MECLIZINE 12.5 MG TAB ONE (10:57)
[2020-03-24] MEDS ORDERED: MIRALAX *UNIT DOSE* 17GM PACKET As Ordered ONE (18:08)
[2020-03-24] MEDS ORDERED: DOCUSATE SODIUM 100 MG CAP As Ordered ONE (21:19)
[2020-03-24] MEDS ORDERED: SENNA 8.6 MG TAB (SENOKOT) As Ordered ONE (21:20)
[2020-03-24] MEDS ORDERED: METOPROLOL SUCC *XL* 25MG TAB (TopROL *XL*) As Ordered ONE (21:20)
[2020-03-25] MEDS ORDERED: HEPARIN SOD (PORCINE) 5000UNITS/ML VIAL (J1644 PER 1000UNITS) As Ordered ONE ×3 (05:31→21:26)
[2020-03-25] MEDS ORDERED: LEVOTHYROXINE 25MCG TABLET (0.025MG) As Ordered ONE (05:32)
[2020-03-25] MEDS ORDERED: DOCUSATE SODIUM 100 MG CAP As Ordered ONE ×3 (08:47→21:26)
[2020-03-25] MEDS ORDERED: LACTOBACILLUS ACIDOPHILUS CAP (BACID) As Ordered ONE ×3 (08:47→21:26)
[2020-03-25] MEDS ORDERED: ASPIRIN 81 MG CHEW TABLET As Ordered ONE (08:47)
[2020-03-25] MEDS ORDERED: amLODIPine 10 MG TAB As Ordered ONE (08:47)
[2020-03-25] MEDS ORDERED: ATORVASTATIN 20 MG TAB As Ordered ONE (08:47)
[2020-03-25] MEDS ORDERED: guaiFENesin 200 MG TAB As Ordered ONE ×3 (08:47→21:25)
[2020-03-25] MEDS ORDERED: HumaLOG INSULIN (NovoLOG) PER UNIT As Ordered ONE ×3 (08:48→17:11)
[2020-03-25] MEDS ORDERED: PANTOPRAZOLE 40MG TAB (PROTONIX) As Ordered ONE ×2 (08:48→21:26)
[2020-03-25] MEDS ORDERED: ONDANSETRON 4 MG ORAL DISINTEGRATING TAB As Ordered ONE ×2 (08:49→11:55)
[2020-03-25] MEDS ORDERED: DULoxetine 30 MG CAP (CYMBALTA) As Ordered ONE (08:49)
[2020-03-25] MEDS ORDERED: METOPROLOL TART 25 MG TABLET As Ordered ONE (08:49)
[2020-03-25] MEDS ORDERED: lisinopriL 10 MG TAB As Ordered ONE (08:49)
[2020-03-25] MEDS ORDERED: LEVEMIR (INSULIN DETEMIR) 1 UNITS/0.01ML As Ordered ONE (08:50)
[2020-03-25] MEDS ORDERED: CLOPIDOGREL 75 MG TAB As Ordered ONE (09:19)
[2020-03-25] MEDS ORDERED: EZETIMIBE 10 MG TAB (ZETIA) ONE (11:00)
[2020-03-25] MEDS ORDERED: MECLIZINE 25 MG TABLET ONE ×2 (11:00→13:00)
[2020-03-25] MEDS ORDERED: gemfibroziL 600 MG TAB ONE (11:00)
[2020-03-25] MEDS ORDERED: MECLIZINE 12.5 MG TAB ONE (11:00)
[2020-03-25] MEDS ORDERED: FLUCONAZOLE 100 MG TAB As Ordered ONE (17:41)
[2020-03-25] MEDS ORDERED: ONDANSETRON 4 MG TAB As Ordered ONE (21:26)
[2020-03-25] MEDS ORDERED: SENNA 8.6 MG TAB (SENOKOT) As Ordered ONE (21:26)
[2020-03-25] MEDS ORDERED: METOPROLOL SUCC *XL* 25MG TAB (TopROL *XL*) As Ordered ONE (21:26)
[2020-03-26] MEDS ORDERED: HEPARIN SOD (PORCINE) 5000UNITS/ML VIAL (J1644 PER 1000UNITS) ONE (09:00)
[2020-03-26] MEDS ORDERED: ASPIRIN 81 MG CHEW TABLET ONE (09:00)
[2020-03-26] MEDS ORDERED: LEVEMIR (INSULIN DETEMIR) 1 UNITS/0.01ML ONE (09:00)
[2020-03-26] MEDS ORDERED: CLOPIDOGREL 75 MG TAB ONE (09:00)
[2020-03-26] MEDS ORDERED: guaiFENesin 200 MG TAB ONE (09:00)
[2020-03-26] MEDS ORDERED: PANTOPRAZOLE 40MG TAB (PROTONIX) ONE (09:00)
[2020-03-26] MEDS ORDERED: ONDANSETRON 4 MG ORAL DISINTEGRATING TAB ONE ×2 (09:00→12:49)
[2020-03-26] MEDS ORDERED: HumaLOG INSULIN (NovoLOG) PER UNIT ONE (09:00)
[2020-03-26] MEDS ORDERED: amLODIPine 10 MG TAB ONE (09:00)
[2020-03-26] MEDS ORDERED: DOCUSATE SODIUM 100 MG CAP ONE (09:00)
[2020-03-26] MEDS ORDERED: LACTOBACILLUS ACIDOPHILUS CAP (BACID) ONE (09:00)
[2020-03-26] MEDS ORDERED: METOPROLOL TART 25 MG TABLET ONE (09:00)
[2020-03-26] MEDS ORDERED: ATORVASTATIN 20 MG TAB ONE (09:00)
[2020-03-26] MEDS ORDERED: DULoxetine 30 MG CAP (CYMBALTA) ONE (09:00)
[2020-03-26] MEDS ORDERED: lisinopriL 10 MG TAB ONE (09:00)
[2020-03-26] MEDS ORDERED: HumaLOG INSULIN (NovoLOG) PER UNIT As Ordered ONE (16:49)
[2020-03-26] MEDS ORDERED: guaiFENesin 200 MG TAB As Ordered ONE ×2 (16:51→20:12)
[2020-03-26] MEDS ORDERED: LACTOBACILLUS ACIDOPHILUS CAP (BACID) As Ordered ONE ×2 (16:51→20:12)
[2020-03-26] MEDS ORDERED: ONDANSETRON 4 MG ORAL DISINTEGRATING TAB As Ordered ONE (16:51)
[2020-03-26] MEDS ORDERED: DOCUSATE SODIUM 100 MG CAP As Ordered ONE ×2 (16:54→20:12)
[2020-03-26] MEDS ORDERED: PANTOPRAZOLE 40MG TAB (PROTONIX) As Ordered ONE (20:13)
[2020-03-26] MEDS ORDERED: HEPARIN SOD (PORCINE) 5000UNITS/ML VIAL (J1644 PER 1000UNITS) As Ordered ONE (20:13)
[2020-03-26] MEDS ORDERED: ACETAMINOPHEN 325 MG TAB As Ordered ONE (20:14)
[2020-03-26] MEDS ORDERED: SENNA 8.6 MG TAB (SENOKOT) As Ordered ONE (20:14)
[2020-03-26] MEDS ORDERED: METOPROLOL TART 25 MG TABLET As Ordered ONE (20:14)
[2020-03-26] MEDS ORDERED: ONDANSETRON 4 MG TAB As Ordered ONE (20:15)
[2020-03-26] MEDS ORDERED: BACLOFEN 10 MG TAB As Ordered ONE (20:52)
[2020-03-27] MEDS ORDERED: LEVOTHYROXINE 25MCG TABLET (0.025MG) As Ordered ONE (05:27)
[2020-03-27] MEDS ORDERED: HEPARIN SOD (PORCINE) 5000UNITS/ML VIAL (J1644 PER 1000UNITS) As Ordered ONE ×3 (05:27→20:37)
[2020-03-27] MEDS ORDERED: MIRALAX *UNIT DOSE* 17GM PACKET As Ordered ONE (08:37)
[2020-03-27] MEDS ORDERED: LACTOBACILLUS ACIDOPHILUS CAP (BACID) As Ordered ONE ×3 (08:37→20:37)
[2020-03-27] MEDS ORDERED: guaiFENesin 200 MG TAB As Ordered ONE ×3 (08:37→20:36)
[2020-03-27] MEDS ORDERED: DOCUSATE SODIUM 100 MG CAP As Ordered ONE ×3 (08:37→20:36)
[2020-03-27] MEDS ORDERED: amLODIPine 10 MG TAB As Ordered ONE (08:37)
[2020-03-27] MEDS ORDERED: ATORVASTATIN 20 MG TAB As Ordered ONE (08:37)
[2020-03-27] MEDS ORDERED: lisinopriL 10 MG TAB As Ordered ONE (08:38)
[2020-03-27] MEDS ORDERED: PANTOPRAZOLE 40MG TAB (PROTONIX) As Ordered ONE ×2 (08:38→20:37)
[2020-03-27] MEDS ORDERED: ONDANSETRON 4 MG ORAL DISINTEGRATING TAB As Ordered ONE ×3 (08:38→16:47)
[2020-03-27] MEDS ORDERED: DULoxetine 30 MG CAP (CYMBALTA) As Ordered ONE (08:38)
[2020-03-27] MEDS ORDERED: METOPROLOL TART 25 MG TABLET As Ordered ONE ×2 (08:38→20:37)
[2020-03-27] MEDS ORDERED: CLOPIDOGREL 75 MG TAB As Ordered ONE (08:48)
[2020-03-27] MEDS ORDERED: ASPIRIN 81 MG CHEW TABLET As Ordered ONE (08:48)
[2020-03-27] MEDS ORDERED: LEVEMIR (INSULIN DETEMIR) 1 UNITS/0.01ML As Ordered ONE (08:49)
[2020-03-27] MEDS ORDERED: HumaLOG INSULIN (NovoLOG) PER UNIT As Ordered ONE ×2 (11:48→16:45)
[2020-03-27] MEDS ORDERED: TAMSULOSIN 0.4 MG CAP As Ordered ONE (20:37)
[2020-03-27] MEDS ORDERED: SENNA 8.6 MG TAB (SENOKOT) As Ordered ONE (20:37)
[2020-03-27] MEDS ORDERED: ONDANSETRON 4 MG TAB As Ordered ONE (20:38)
[2020-03-28] MEDS ORDERED: LEVOTHYROXINE 25MCG TABLET (0.025MG) As Ordered ONE ×2 (06:28→08:48)
[2020-03-28] MEDS ORDERED: HEPARIN SOD (PORCINE) 5000UNITS/ML VIAL (J1644 PER 1000UNITS) As Ordered ONE ×3 (06:28→21:15)
[2020-03-28] MEDS ORDERED: guaiFENesin 200 MG TAB As Ordered ONE ×3 (08:44→21:14)
[2020-03-28] MEDS ORDERED: amLODIPine 10 MG TAB As Ordered ONE (08:45)
[2020-03-28] MEDS ORDERED: CLOPIDOGREL 75 MG TAB As Ordered ONE (08:45)
[2020-03-28] MEDS ORDERED: ASPIRIN 81 MG CHEW TABLET As Ordered ONE (08:45)
[2020-03-28] MEDS ORDERED: DOCUSATE SODIUM 100 MG CAP As Ordered ONE ×3 (08:46→21:14)
[2020-03-28] MEDS ORDERED: ATORVASTATIN 20 MG TAB As Ordered ONE (08:46)
[2020-03-28] MEDS ORDERED: LACTOBACILLUS ACIDOPHILUS CAP (BACID) As Ordered ONE ×3 (08:46→21:14)
[2020-03-28] MEDS ORDERED: PANTOPRAZOLE 40MG TAB (PROTONIX) As Ordered ONE ×2 (08:47→21:15)
[2020-03-28] MEDS ORDERED: HumaLOG INSULIN (NovoLOG) PER UNIT As Ordered ONE ×3 (08:47→21:36)
[2020-03-28] MEDS ORDERED: DULoxetine 30 MG CAP (CYMBALTA) As Ordered ONE (08:47)
[2020-03-28] MEDS ORDERED: ONDANSETRON 4 MG ORAL DISINTEGRATING TAB As Ordered ONE ×3 (08:47→18:02)
[2020-03-28] MEDS ORDERED: lisinopriL 10 MG TAB As Ordered ONE (08:47)
[2020-03-28] MEDS ORDERED: METOPROLOL TART 25 MG TABLET As Ordered ONE ×2 (08:48→21:15)
[2020-03-28] MEDS ORDERED: LEVEMIR (INSULIN DETEMIR) 1 UNITS/0.01ML As Ordered ONE (08:49)
[2020-03-28] MEDS ORDERED: gemfibroziL 600 MG TAB ONE (12:57)
[2020-03-28] MEDS ORDERED: EZETIMIBE 10 MG TAB (ZETIA) ONE (12:57)
[2020-03-28] MEDS ORDERED: SENNA 8.6 MG TAB (SENOKOT) As Ordered ONE (21:15)
[2020-03-28] MEDS ORDERED: ONDANSETRON 4 MG TAB As Ordered ONE (21:15)
[2020-03-29] MEDS ORDERED: HEPARIN SOD (PORCINE) 5000UNITS/ML VIAL (J1644 PER 1000UNITS) As Ordered ONE ×3 (06:12→21:08)
[2020-03-29] MEDS ORDERED: LEVOTHYROXINE 25MCG TABLET (0.025MG) As Ordered ONE (06:12)
[2020-03-29] MEDS ORDERED: guaiFENesin 200 MG TAB As Ordered ONE ×3 (07:42→21:07)
[2020-03-29] MEDS ORDERED: CLOPIDOGREL 75 MG TAB As Ordered ONE (07:42)
[2020-03-29] MEDS ORDERED: PANTOPRAZOLE 40MG TAB (PROTONIX) As Ordered ONE ×2 (07:43→21:07)
[2020-03-29] MEDS ORDERED: ATORVASTATIN 20 MG TAB As Ordered ONE (07:43)
[2020-03-29] MEDS ORDERED: DOCUSATE SODIUM 100 MG CAP As Ordered ONE ×3 (07:43→21:07)
[2020-03-29] MEDS ORDERED: amLODIPine 10 MG TAB As Ordered ONE (07:43)
[2020-03-29] MEDS ORDERED: LACTOBACILLUS ACIDOPHILUS CAP (BACID) As Ordered ONE ×3 (07:43→21:07)
[2020-03-29] MEDS ORDERED: ASPIRIN 81 MG CHEW TABLET As Ordered ONE (07:43)
[2020-03-29] MEDS ORDERED: lisinopriL 10 MG TAB As Ordered ONE (07:44)
[2020-03-29] MEDS ORDERED: SENNA 8.6 MG TAB (SENOKOT) As Ordered ONE ×2 (07:44→21:08)
[2020-03-29] MEDS ORDERED: METOPROLOL TART 25 MG TABLET As Ordered ONE ×2 (07:44→21:08)
[2020-03-29] MEDS ORDERED: DULoxetine 30 MG CAP (CYMBALTA) As Ordered ONE (07:44)
[2020-03-29] MEDS ORDERED: ONDANSETRON 4 MG ORAL DISINTEGRATING TAB As Ordered ONE ×2 (07:44→11:53)
[2020-03-29] MEDS ORDERED: LEVEMIR (INSULIN DETEMIR) 1 UNITS/0.01ML As Ordered ONE (07:45)
[2020-03-29] MEDS ORDERED: HumaLOG INSULIN (NovoLOG) PER UNIT As Ordered ONE ×3 (07:47→18:25)
[2020-03-29] MEDS ORDERED: MIRALAX *UNIT DOSE* 17GM PACKET As Ordered ONE (08:21)
[2020-03-29] MEDS ORDERED: METOCLOPRAMIDE 5 MG TAB As Ordered ONE (18:25)
[2020-03-29] MEDS ORDERED: TAMSULOSIN 0.4 MG CAP As Ordered ONE (21:18)
[2020-03-30] MEDS ORDERED: LEVOTHYROXINE 25MCG TABLET (0.025MG) As Ordered ONE (06:08)
[2020-03-30] MEDS ORDERED: HEPARIN SOD (PORCINE) 5000UNITS/ML VIAL (J1644 PER 1000UNITS) As Ordered ONE ×3 (06:08→21:01)
[2020-03-30] MEDS ORDERED: METOCLOPRAMIDE 10 MG TAB As Ordered ONE ×3 (06:08→16:47)
[2020-03-30] MEDS ORDERED: ATORVASTATIN 20 MG TAB As Ordered ONE (08:32)
[2020-03-30] MEDS ORDERED: amLODIPine 10 MG TAB As Ordered ONE (08:32)
[2020-03-30] MEDS ORDERED: LACTOBACILLUS ACIDOPHILUS CAP (BACID) As Ordered ONE ×3 (08:32→20:58)
[2020-03-30] MEDS ORDERED: DOCUSATE SODIUM 100 MG CAP As Ordered ONE ×2 (08:32→14:45)
[2020-03-30] MEDS ORDERED: guaiFENesin 200 MG TAB As Ordered ONE ×3 (08:32→20:58)
[2020-03-30] MEDS ORDERED: lisinopriL 10 MG TAB As Ordered ONE (08:33)
[2020-03-30] MEDS ORDERED: METOPROLOL TART 25 MG TABLET As Ordered ONE ×2 (08:33→21:01)
[2020-03-30] MEDS ORDERED: DULoxetine 30 MG CAP (CYMBALTA) As Ordered ONE (08:33)
[2020-03-30] MEDS ORDERED: PANTOPRAZOLE 40MG TAB (PROTONIX) As Ordered ONE ×2 (08:33→21:01)
[2020-03-30] MEDS ORDERED: CLOPIDOGREL 75 MG TAB As Ordered ONE (08:37)
[2020-03-30] MEDS ORDERED: ASPIRIN 81 MG CHEW TABLET As Ordered ONE (08:37)
[2020-03-30] MEDS ORDERED: LEVEMIR (INSULIN DETEMIR) 1 UNITS/0.01ML As Ordered ONE (08:38)
[2020-03-30] MEDS ORDERED: gemfibroziL 600 MG TAB ONE (11:00)
[2020-03-30] MEDS ORDERED: EZETIMIBE 10 MG TAB (ZETIA) ONE (11:00)
[2020-03-30] MEDS ORDERED: MECLIZINE 25 MG TABLET ONE (11:00)
[2020-03-30] MEDS ORDERED: HumaLOG INSULIN (NovoLOG) PER UNIT As Ordered ONE ×3 (11:54→21:01)
[2020-03-30] MEDS ORDERED: TAMSULOSIN 0.4 MG CAP As Ordered ONE (21:01)
[2020-03-31] MEDS ORDERED: METOCLOPRAMIDE 10 MG TAB As Ordered ONE ×3 (06:05→16:48)
[2020-03-31] MEDS ORDERED: HEPARIN SOD (PORCINE) 5000UNITS/ML VIAL (J1644 PER 1000UNITS) As Ordered ONE ×3 (06:05→20:35)
[2020-03-31] MEDS ORDERED: LEVOTHYROXINE 25MCG TABLET (0.025MG) As Ordered ONE (06:05)
[2020-03-31] MEDS ORDERED: guaiFENesin 200 MG TAB As Ordered ONE ×3 (07:17→20:35)
[2020-03-31] MEDS ORDERED: ASPIRIN 81 MG CHEW TABLET As Ordered ONE (07:17)
[2020-03-31] MEDS ORDERED: LACTOBACILLUS ACIDOPHILUS CAP (BACID) As Ordered ONE ×3 (07:17→20:35)
[2020-03-31] MEDS ORDERED: amLODIPine 10 MG TAB As Ordered ONE (07:17)
[2020-03-31] MEDS ORDERED: CLOPIDOGREL 75 MG TAB As Ordered ONE (07:17)
[2020-03-31] MEDS ORDERED: ATORVASTATIN 20 MG TAB As Ordered ONE (07:17)
[2020-03-31] MEDS ORDERED: PANTOPRAZOLE 40MG TAB (PROTONIX) As Ordered ONE ×2 (07:18→20:35)
[2020-03-31] MEDS ORDERED: HumaLOG INSULIN (NovoLOG) PER UNIT As Ordered ONE ×3 (07:18→16:48)
[2020-03-31] MEDS ORDERED: METOPROLOL TART 25 MG TABLET As Ordered ONE ×2 (07:19→20:36)
[2020-03-31] MEDS ORDERED: DULoxetine 30 MG CAP (CYMBALTA) As Ordered ONE (07:19)
[2020-03-31] MEDS ORDERED: lisinopriL 10 MG TAB As Ordered ONE (07:19)
[2020-03-31] MEDS ORDERED: LEVEMIR (INSULIN DETEMIR) 1 UNITS/0.01ML As Ordered ONE (07:20)
[2020-03-31] MEDS ORDERED: TAMSULOSIN 0.4 MG CAP As Ordered ONE (20:36)
[2020-04-01] MEDS ORDERED: LEVOTHYROXINE 25MCG TABLET (0.025MG) As Ordered ONE (05:55)
[2020-04-01] MEDS ORDERED: HEPARIN SOD (PORCINE) 5000UNITS/ML VIAL (J1644 PER 1000UNITS) As Ordered ONE ×2 (05:55→08:50)
[2020-04-01] MEDS ORDERED: METOCLOPRAMIDE 10 MG TAB As Ordered ONE (05:55)
[2020-04-01] MEDS ORDERED: guaiFENesin 200 MG TAB As Ordered ONE (08:48)
[2020-04-01] MEDS ORDERED: CLOPIDOGREL 75 MG TAB As Ordered ONE (08:49)
[2020-04-01] MEDS ORDERED: ATORVASTATIN 20 MG TAB As Ordered ONE (08:49)
[2020-04-01] MEDS ORDERED: PANTOPRAZOLE 40MG TAB (PROTONIX) As Ordered ONE (08:49)
[2020-04-01] MEDS ORDERED: LACTOBACILLUS ACIDOPHILUS CAP (BACID) As Ordered ONE (08:49)
[2020-04-01] MEDS ORDERED: amLODIPine 10 MG TAB As Ordered ONE (08:49)
[2020-04-01] MEDS ORDERED: METOPROLOL TART 25 MG TABLET As Ordered ONE (08:50)
[2020-04-01] MEDS ORDERED: ASPIRIN 81 MG ENTERIC TAB As Ordered ONE (08:50)
[2020-04-01] MEDS ORDERED: DULoxetine 30 MG CAP (CYMBALTA) As Ordered ONE (08:50)
[2020-04-01] MEDS ORDERED: lisinopriL 10 MG TAB As Ordered ONE (08:50)
[2020-04-01] MEDS ORDERED: LEVEMIR (INSULIN DETEMIR) 1 UNITS/0.01ML As Ordered ONE (08:52)
[2020-04-01] MEDS ORDERED: gemfibroziL 600 MG TAB ONE (13:00)
== END 2020-04-01 14:00 | disposition home or self-care (01) | DRG 58 ==
LOC: M PM&R 03-21 15:50
PROVIDERS: ADMIT Physical Medicine & Rehabilitation; ATTEND Physical Medicine & Rehabilitation
DX: I69.391 Dysphagia following cerebral infarction (principal); I10 Essential (primary) hypertension; I25.10 Atherosclerotic heart disease of native coronary artery without angina pectoris; F32.9 Major depressive disorder, single episode, unspecified; I16.0 Hypertensive urgency; J44.9 Chronic obstructive pulmonary disease, unspecified; R26.89 Other abnormalities of gait and mobility; R42 Dizziness and giddiness; Z88.0 Allergy status to penicillin; Z88.8 Allergy status to other drugs, medicaments and biological substances; Z79.899 Other long term (current) drug therapy; I69.351 Hemiplegia and hemiparesis following cerebral infarction affecting right dominant side

== ENCOUNTER → 2020-06-10 | Outpatient (REF) | payer OTHER, MEDICAID ==
[~2020-06-10] MED LIST changes: -AMLO10TA5; -AMLO10TA5 PO; +AMLO1TAB25; +AMLO1TAB25 PO; +PANT40TA29; -PANT40TA3
[2020-06-10 14:13] LABS: BASO # 0.1 10^3/uL (0.0-0.2); BASO % 0.6 % (0.0-1.0); EOS # 0.5 10^3/uL (0.0-0.5); EOS % 4.5 % (0.0-3.0); HEMATOCRIT 34.8 % (36.0-47.0); HEMOGLOBIN 11.4 g/dl (12.0-15.5); LYMPH # 2.8 10^3/uL (1.5-5.0); MEAN CORPUSCULAR HEMOGLOBIN 30.5 pg (27.0-33.0); MEAN CORPUSCULAR HGB CONC 32.8 g/dl (32.0-36.5); MONO % 9.2 % (0.0-5.0); NEUTROPHILS # 6.8 10^3/uL (1.5-8.5); NEUTROPHILS % 60.5 % (36.0-66.0); PLATELET COUNT, AUTOMATED 576 10^3/uL (150-450); RED BLOOD COUNT 3.74 10^6/uL (4.00-5.40); WHITE BLOOD COUNT 11.2 10^3/uL (4.0-10.0)
[2020-06-10 14:31] LABS: HEMOGLOBIN A1c 8.9 %
[2020-06-10 14:59] LABS: BILIRUBIN,TOTAL 0.2 MG/DL (0.2-1.0); CALCIUM LEVEL 10.2 MG/DL (8.5-10.1); CHOLESTEROL RISK RATIO 2.962 (<5); CREATININE FOR GFR 2.23 MG/DL (0.55-1.30); FREE T4 0.55 NG/DL (0.76-1.46); GLOMERULAR FILTRATION RATE 24.4 (>51); POTASSIUM SERUM 6.1 MEQ/L (3.5-5.1); PTH INTACT 59.8 PG/ML (18.5-88.0); THYROID STIMULATING HORMONE 4.06 uIU/ML (0.358-3.740); TOTAL 25(OH) VITAMIN D 23.3 NG/ML (30.0-100.0); TOTAL PROTEIN 7.7 GM/DL (6.4-8.2)
== END ==
LOC: M SFHCPLAZ 12:09
PROVIDERS: ATTEND Physician Assistant Medical
DX: E55.9 Vitamin D deficiency, unspecified (principal); E03.9 Hypothyroidism, unspecified; E78.00 Pure hypercholesterolemia, unspecified; I10 Essential (primary) hypertension; E11.9 Type 2 diabetes mellitus without complications

== ENCOUNTER → 2020-06-13 | Outpatient (REF) | payer OTHER, MEDICAID ==
[2020-06-13 15:12] LABS: BILIRUBIN,TOTAL 0.2 MG/DL (0.2-1.0); CREATININE FOR GFR 2.19 MG/DL (0.55-1.30); GLOMERULAR FILTRATION RATE 24.9 (>51); POTASSIUM SERUM 5.1 MEQ/L (3.5-5.1); TOTAL PROTEIN 7.8 GM/DL (6.4-8.2)
== END ==
LOC: M PLALAB 13:13
PROVIDERS: ATTEND Physician Assistant Medical
DX: N18.30 Chronic kidney disease, stage 3 unspecified (principal); E87.5 Hyperkalemia

== ENCOUNTER → 2020-06-28 | Outpatient (CLI) | payer OTHER, MEDICAID ==
--- NOTE | 2020-06-29 10:15 | REPPI ---
INDICATION: I50.21 ACUTE SYSTOLIC CONGESTIVE HEART FAILURE. COMPARISON: Comparison chest x-ray March 29, 2020. TECHNIQUE: Two views.. FINDINGS: Patient status post prior median sternotomy. Coronary artery stent material is visible in the left and right coronary artery distribution as before. Heart is not felt to be enlarged. There is discoid atelectasis in the right base with increased markings in the right base suggestive of an infiltrate. There is blunting of the right lateral pleural angle and the right posterior pleural angle. Some atelectasis is in the distribution of the right middle lobe. IMPRESSION: Platelike atelectasis and infiltrate right base. Blunting of the right lateral pleural angles. Coronary artery stenting and prior sternotomy wires.. <Electronically signed by Michael Khoury > 06/29/20 [id number]
== END ==
LOC: M PLAIMG 15:09
PROVIDERS: ATTEND Physician Assistant Medical
DX: I50.21 Acute systolic (congestive) heart failure (principal); J98.11 Atelectasis; R91.8 Other nonspecific abnormal finding of lung field; Z95.5 Presence of coronary angioplasty implant and graft

== ENCOUNTER → 2020-07-05 | Outpatient (REF) | payer OTHER, MEDICAID ==
[2020-07-05 16:04] LABS: ALBUMIN 2.7 GM/DL (3.2-5.2); BILIRUBIN,TOTAL 0.3 MG/DL (0.2-1.0); CALCIUM LEVEL 9.6 MG/DL (8.5-10.1); CREATININE FOR GFR 1.41 MG/DL (0.55-1.30); GLOMERULAR FILTRATION RATE 41.4 (>51); POTASSIUM SERUM 5.1 MEQ/L (3.5-5.1); TOTAL PROTEIN 7.5 GM/DL (6.4-8.2)
== END ==
LOC: M PLALAB 12:17
PROVIDERS: ATTEND Physician Assistant Medical
DX: I50.21 Acute systolic (congestive) heart failure (principal)

== ENCOUNTER 2020-07-19 10:17 | Emergency (ER) | payer MEDICAID, OTHER ==
[~2020-07-19] VITALS: Ht 162.6 cm; Wt 81.3 kg
[2020-07-19] MEDS ORDERED: NS 1,000 ML IV SCH (11:30)
[2020-07-19] MEDS ORDERED: PEPC40TA12 PO (12:12)
[2020-07-19] MEDS ORDERED: INSUHUMDS SC (12:12)
[2020-07-19 12:52] LABS: BASO # 0.1 10^3/uL (0.0-0.2); BASO % 0.9 % (0.0-1.0); EOS # 0.3 10^3/uL (0.0-0.5); EOS % 3.3 % (0.0-3.0); HEMATOCRIT 34.3 % (36.0-47.0); HEMOGLOBIN 10.6 g/dl (12.0-15.5); LYMPH # 2.2 10^3/uL (1.5-5.0); LYMPH % 22.4 % (24.0-44.0); MEAN CORPUSCULAR HEMOGLOBIN 29.9 pg (27.0-33.0); MEAN CORPUSCULAR HGB CONC 30.9 g/dl (32.0-36.5); MEAN CORPUSCULAR VOLUME 96.6 fl (80.0-96.0); MONO # 0.9 10^3/uL (0.0-0.8); MONO % 9.7 % (0.0-5.0); NEUTROPHILS # 6.1 10^3/uL (1.5-8.5); NEUTROPHILS % 63.3 % (36.0-66.0); PLATELET COUNT, AUTOMATED 546 10^3/uL (150-450); RED BLOOD COUNT 3.55 10^6/uL (4.00-5.40); WHITE BLOOD COUNT 9.6 10^3/uL (4.0-10.0)
[2020-07-19 13:12] LABS: ERYTHROCYTE SEDIMENTATION RATE 92 mm/hr (0-30)
[2020-07-19] MEDS ORDERED: ISOVUE-370 76% 100ML VIAL As Ordered ONE (13:39)
--- NOTE | 2020-07-19 14:06 | REPVR ---
PROCEDURE INFORMATION: Exam: CT Orbits With Contrast Exam date and time: 07/19/2020 1:44 PM Age: 55 years old Clinical indication: Mass, lump, or swelling; Other: Orbit; Additional info: Sent my eye doctor, concern for orbital edema TECHNIQUE: Imaging protocol: Computed tomography images of the orbits with intravenous contrast. Radiation optimization: All CT scans at this facility use at least one of these dose optimization techniques: automated exposure control; mA and/or kV adjustment per patient size (includes targeted exams where dose is matched to clinical indication); or iterative reconstruction. Contrast material: ISOVUE 370; Contrast volume: 75 ml; Contrast route: INTRAVENOUS (IV); COMPARISON: CT Head without contrast 03/10/2020 7:26 PM FINDINGS: Orbital cavity: There is a suspected fluid collection measuring 11 by 6 by 5 mm seen on image 201/11 as well as image 204/16 adjacent to the globe extending superficially in in the correct clinical setting this could be an abscess. There is no abnormal density to the fluid within the globe. The intraconal fat and orbital musculature appear normal. Paranasal sinuses: Normal. No air-fluid levels. Bones/joints: No acute fracture. Soft tissues: No significant facial soft tissue swelling. IMPRESSION: Fluid collection right lateral there orbit adjacent to the globe extending superficially. Involvement of the wall of the globe is question if this is an abscess or another type of mass. Electronically signed by: Kana Knox On 07/19/2020 14:06:07 PM
[2020-07-19 16:49] VITALS: BP 162/79
== END 2020-07-19 16:59 | disposition short-term general hospital (02) ==
LOC: M ED 10:17
DX: H57.89 Other specified disorders of eye and adnexa (principal); H53.9 Unspecified visual disturbance; I11.9 Hypertensive heart disease without heart failure; E11.9 Type 2 diabetes mellitus without complications; Z86.73 Personal history of transient ischemic attack (TIA), and cerebral infarction without residual deficits; Z88.0 Allergy status to penicillin; Z79.4 Long term (current) use of insulin; Z79.899 Other long term (current) drug therapy
CPT/HCPCS: 70481; 80047; 83605; 85025; 85652; 86140; 87040; 96360; 96361; 99284; Q9967

== ENCOUNTER 2020-08-08 12:42 | Inpatient (IN) | payer MEDICAID, OTHER ==
[~2020-08-08] VITALS: Ht 162.6 cm; Wt 80.3 kg
[~2020-08-08 12:42] MED LIST changes: +INSUHUMDS SC; +PEPC40TA12 PO
[2020-08-08] MEDS ORDERED: ASPI81CH33 PO (13:55)
[2020-08-08] MEDS ORDERED: FLOM0.4C39 PO (13:55)
[2020-08-08] MEDS ORDERED: POTA20TA6 PO (13:55)
[2020-08-08] MEDS: COMBIVENT RESPIMAT 100-20MCG INHALER 4GM INH SCH ×3 (14:19→15:10)
--- NOTE | 2020-08-08 14:50 | REP ---
INDICATION: Coronavirus workup. COMPARISON: PA and lateral chest dated 11/13/2019 is TECHNIQUE: Single AP view of the chest performed portably with the patient sitting. FINDINGS: There is increased density inferiorly in the right lung that is similar to the comparison study. There is again effacement of the right costophrenic angle suggestive of a right pleural effusion, unchanged. The right upper lobe is unremarkable. The left lung is unremarkable. Cardiac size appears enlarged. There are sternotomy wires. The patient patient's known coronary artery stents are obscured on this portable study. IMPRESSION: Persisting infiltrate inferiorly in the right lung. Persistent right pleural effusion. Sternotomy wires and cardiomegaly, unchanged. <Electronically signed by Diego Rios > 08/08/20 [id number]
[2020-08-08] MEDS ORDERED: ASPI-161 PO (15:05)
[2020-08-08] MEDS ORDERED: METO50TA7 PO (15:05)
[2020-08-08 15:27] LABS: ALBUMIN 2.9 GM/DL (3.2-5.2); ALT/SGPT 26 U/L (12-78); BILIRUBIN,TOTAL 0.3 MG/DL (0.2-1.0); BLOOD UREA NITROGEN 35 MG/DL (7-18); C REACTIVE PROTEIN QUANTITATIV 0.74 MG/DL (0.00-0.30); CALCIUM LEVEL 9.5 MG/DL (8.5-10.1); CARBON DIOXIDE LEVEL 28 MEQ/L (21-32); CHLORIDE LEVEL 106 MEQ/L (98-107); CPK CREATINE PHOSPHOKINASE 59 U/L (26-192); CREATININE FOR GFR 1.93 MG/DL (0.55-1.30); FERRITIN 106 NG/ML (8-252); GLOMERULAR FILTRATION RATE 28.8 (>51); GLUCOSE, FASTING 114 MG/DL (70-100); LDH LACTATE DEHYDROGENASE 238 U/L (84-246); MAGNESIUM LEVEL 2.3 MG/DL (1.8-2.4); MB/CK RELATIVE INDEX 3.39 (< OR =4); POTASSIUM SERUM 5.6 MEQ/L (3.5-5.1); SODIUM LEVEL 137 MEQ/L (136-145); TOTAL PROTEIN 8.9 GM/DL (6.4-8.2); TROPONIN I < 0.02 NG/ML (< 0.10)
[2020-08-08 15:33] LABS: INR 0.97; PARTIAL THROMBOPLASTIN TIME 29.7 SECONDS (24.2-38.5); PROTHROMBIN TIME 13.1 SECONDS (12.5-14.3)
[2020-08-08 15:36] LABS: D-DIMER QUANT 515.35 ng/ml (<500)
[2020-08-08 15:44] LABS: NT-PRO BNP 3819 PG/ML (<125)
[2020-08-08 15:54] LABS: ABG BASE EXCESS -0.5 (-2.0-2.0); ABG HCO3 24.5 MEQ/L (22.0-26.0); ABG PARTIAL PRESSURE CO2 41.8 mmHg (35.0-45.0); ABG PARTIAL PRESSURE O2 138.8 mmHg (75.0-100.0); ABG STANDARD HCO3 24.1 MEQ/L (22.0-26.0); ABG TOTAL CO2 25.8 MEQ/L (22.0-29.0); ABG pH (ARTERIAL) 7.386 UNITS (7.350-7.450)
[2020-08-08] MEDS ORDERED: DEXTROSE 50% 50 ML SYRINGE IV PRN (16:30)
[2020-08-08] MEDS ORDERED: GLUCAGON INJ 1MG VIAL SC PRN (16:30)
[2020-08-08] MEDS ORDERED: GLUCOSE 4GM CHEW TABLET PO PRN (16:30)
--- NOTE | 2020-08-08 17:24 | REP ---
INDICATION: infiltrate vs pleural effusion. COMPARISON: Portable chest performed earlier today. There are no comparison chest CTs. TECHNIQUE: Chest CT without IV contrast. FINDINGS: There is an infiltrate inferiorly in the right middle lobe. There is a patchy infiltrate in the right lower lobe. There is a small right pleural effusion. There is a 9 mm lung nodule peripherally in the right upper lobe on image 27. There is an 8 mm right middle lobe nodule peripherally on image 36. There is a 12 mm right middle lobe lung nodule peripherally on image 41. The left lung is unremarkable except for a small focal zone of atelectasis inferiorly in the lingula. There are multiple normal size paratracheal and anterior mediastinal nodes. The study is insensitive for hilar lymph node enlargement in the absence of IV contrast. There is no axillary lymph node enlargement. The thoracic aorta is unremarkable. Cardiac size is enlarged. There are coronary artery vascular stents. No pericardial effusion. IMPRESSION: Right middle lobe and right lower lobe infiltrates as described. Small right pleural effusions. Multiple right lung nodular densities as described. Multiple normal size mediastinal nodes. Cardiomegaly. Coronary artery vascular stents. <Electronically signed by Diego Rios > 08/08/20 1320
[2020-08-08] MEDS: HumaLOG INSULIN (NovoLOG) PER UNIT SC SCH ×2 (17:30→20:55)
[2020-08-08 17:50] LABS: BASO # 0.1 10^3/uL (0.0-0.2); BASO % 0.8 % (0.0-1.0); EOS # 0.5 10^3/uL (0.0-0.5); EOS % 4.9 % (0.0-3.0); HEMATOCRIT 34.3 % (36.0-47.0); HEMOGLOBIN 10.3 g/dl (12.0-15.5); LYMPH # 1.9 10^3/uL (1.5-5.0); LYMPH % 18.5 % (24.0-44.0); MEAN CORPUSCULAR HEMOGLOBIN 28.9 pg (27.0-33.0); MEAN CORPUSCULAR VOLUME 96.1 fl (80.0-96.0); MONO # 1.1 10^3/uL (0.0-0.8); MONO % 10.8 % (0.0-5.0); NEUTROPHILS # 6.6 10^3/uL (1.5-8.5); NEUTROPHILS % 64.8 % (36.0-66.0); PLATELET COUNT, AUTOMATED 495 10^3/uL (150-450); RED BLOOD COUNT 3.57 10^6/uL (4.00-5.40); WHITE BLOOD COUNT 10.1 10^3/uL (4.0-10.0)
[2020-08-08] MEDS ORDERED: cefTRIAXone SOD 2 GM in D5W MINI-BAG PLUS 50 ML IV SCH (18:00)
--- NOTE | 2020-08-08 18:09 | HPEPDOC ---
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 Pt had noticed increasing KAUR with ambulation, chronic cough productive of white sputum, without chills, h/a, n/v/abd pain, diarrhea, rhinorrhea, sore throat. COVID-19 negative in the ER. CXR: right PNA and small pleural effusion. She denied pnd, orthopnea, LE edema, or weight gain.Hospitalist was asked to admit for CAP. 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 denies recreational drug use, etoh or cigarette use. full code FAMILY HISTORY: Father: , 48, cad mi, cva, heart transplant, dm Mother:, 38, cad, mi , dm2, breast cancer sister, alive, cirrhosis, htn, dm brother 42 cad mi ALLERGIES: Please see below. REVIEW OF SYSTEMS: per hpi for positive findings. otherwise, negative 10 points ros. HOME MEDICATIONS: Please see below. PHYSICAL EXAMINATION: VITAL SIGNS: see below GENERAL APPEARANCE: no distress. speaks in full sentences. no pallor or cyanosis appears older than her stated age. right eye ptosis. disheveled HEENT: no jvd. dry mm. no carotid bruits. no stridor, tracheal deviation, or nasal flaring. no thyromegaly or cervical LAD. no pharyngeal erythema. right eye ptosis CARDIOVASCULAR:s1s2 RRR no m/r/g, nondisplaced pmi LUNGS: left lung clear. right lung fine crackles middle lobe and base. no wheezing ABDOMEN: soft nt nd +bs x 4quadrants no fluid wave. no hsm. no abdominal bruits EXTREMITIES: trace le edema b/l SKIN: no cyanosis. warm dry pink in color well perfused LABORATORY DATA: See below. IMAGING: INDICATION: infiltrate vs pleural effusion. COMPARISON: Portable chest performed earlier today. There are no comparison chest CTs. TECHNIQUE: Chest CT without IV contrast. FINDINGS: There is an infiltrate inferiorly in the right middle lobe. There is a patchy infiltrate in the right lower lobe. There is a small right pleural effusion. There is a 9 mm lung nodule peripherally in the right upper lobe on image 27. There is an 8 mm right middle lobe nodule peripherally on image 36. There is a 12 mm right middle lobe lung nodule peripherally on image 41. The left lung is unremarkable except for a small focal zone of atelectasis inferiorly in the lingula. There are multiple normal size paratracheal and anterior mediastinal nodes. The study is insensitive for hilar lymph node enlargement in the absence of IV contrast. There is no axillary lymph node enlargement. The thoracic aorta is unremarkable. Cardiac size is enlarged. There are coronary artery vascular stents. No pericardial effusion. IMPRESSION: Right middle lobe and right lower lobe infiltrates as described. Small right pleural effusions. Multiple right lung nodular densities as described. Multiple normal size mediastinal nodes. Cardiomegaly. Coronary artery vascular stents. <Electronically signed by Diego Rios > 08/08/20 MICROBIOLOGY: Please see below. 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 Pt had noticed increasing KAUR with ambulation, chronic cough productive of white sputum, without chills, h/a, n/v/abd pain, diarrhea, rhinorrhea, sore throat. COVID-19 negative in the ER. CXR: right PNA and small pleural effusion. She denied pnd, orthopnea, LE edema, or weight gain.Hospitalist was asked to admit for CAP. Community Acquired Pneumonia RML/RLL -supplemental oxygen to keep o2 sat>90% -due to PCN allergy, meropenem iv q8hrs, doxycycline for atypical coverage. -sputum and blood cultures obtained -nebs qid and prn q1hr -de-escalate abx once sputum culture sensitivities are available -droplet precautions Acute Hypoxic Respiratory Failure due to CAP --supplemental oxygen to keep o2 sat>90% --nebs qid and prn q1hr CVA / Left vertebral artery thrombosis -PT/OT -continue home meds. obtain records from PCP Systolic CHF, compensated -monitor fluid balance. strict i/o, weigh daily, 2liter fluid restriction -resume home meds. obtain records from tobacco baler Dr. Nascimento DM2 -check A1c, consistent carbs diet, insulin sliding scale, hypoglycemic protocol HTN -controlled. obtain med list and progress note from Dr. Nascimento, tobacco baler Asthma, compensated -no wheezing on exam -qid nebs and [id number] for sob Dyslipidemia -check lipid panel. -resume home meds -obtain med list and progress note from Dr. Nascimento, tobacco baler CAD w coronary stents -resume home meds. noacute ischemic symptoms. -cycle cardiac markers. -obtain med list and progress note from Dr. Nascimento, tobacco baler Hypothyroidism -resume synthroid, check tsh GERD -asymptomatic Anxiety/Depression -no c/o. Vitamin D deficiency -outpt fu DVT prophylaxis:lovenox Code status: full code. Vital Signs Vital Signs Date Time Temp Pulse Resp B/P (MAP) Pulse Ox O2 Delivery O2 Flow Rate FiO2 08/08/20 15:00 54 154/78 (103) 93 Nasal Cannula 4.0 08/08/20 13:42 97.3 20 Laboratory Data Labs 24H Laboratory Tests 2 08/08/20 14:13: Anion Gap 3L, Glomerular Filtration Rate 28.8L, Lactic Acid Level 0.6, Calcium Level 9.5, Magnesium Level 2.3, Ferritin 106, Total Bilirubin 0.3, Aspartate Amino Transf (AST/SGOT) 18, Alanine Aminotransferase (ALT/SGPT) 26, Alkaline Phosphatase 91, Lactate Dehydrogenase 238, Total Creatine Kinase 59, Creatine Kinase MB 2.0, Creatine Kinase MB Relative Index 3.39, Troponin I < 0.02, C- Reactive Protein, Quantitative 0.74H, NE-Gam-X-Type Natriuretic Peptide 3819H, Total Protein 8.9H, Albumin 2.9L, Albumin/Globulin Ratio 0.5L, Procalcitonin <0.05 08/08/20 14:26: Prothrombin Time 13.1, Prothromb Time International Ratio 0.97, Activated Partial Thromboplast Time 29.7, Fibrinogen 552H, D-Dimer, Quantitative 515.35H 08/08/20 15:30: Blood Gas Bicarbonate Standard 24.1, Arterial Blood pH 7.386, Arterial Blood Partial Pressure CO2 41.8, Arterial Blood Partial Pressure O2 138.8H, Arterial Blood Total CO2 25.8, Arterial Blood HCO3 24.5, Arterial Blood Base Excess -0.5, Arterial Blood Oxygen Saturation 99.0 08/08/20 16:01: CBC/BMP Laboratory Tests 08/08/20 14:13 Microbiology Microbiology 08/08/20 Blood Culture, Received Pending 08/08/20 Blood Culture, Received Pending 08/08/20 Respiratory Virus Panel (PCR) ([facility]) - Final, Complete Home Medications Scheduled Amlodipine Besylate (Amlodipine Besylate) 10 Mg Tablet, 10 MG PO QHS Aspirin (Aspirin EC) 81 Mg Tablet.dr, 81 MG PO DAILY Atorvastatin Calcium (Atorvastatin Calcium) 80 Mg Tablet, 80 MG PO QHS Clopidogrel Bisulfate (Plavix) 75 Mg Tablet, 75 MG PO DAILY Duloxetine Hcl (Duloxetine HCl) 60 Mg Capsule.dr, 60 MG PO QHS Ezetimibe (Ezetimibe) 10 Mg Tablet, 10 MG PO QHS Furosemide (Furosemide) 40 Mg Tablet, 40 MG PO DAILY Insulin Glargine,Hum.rec.anlog (Basaglar Kwikpen U-100) 100 Unit/1 Ml Insuln.pen, 20 UNIT SC QHS Insulin Human Lispro (Humalog) 100 Unit/1 Ml Vial, 1 DOSE SC AC PER SLIDING SCALE 151-200 4 UNITS 201-250 6 UNITS 251-300 8 UNITS 301-350 10 UNITS 351-400 12 UNITS Levothyroxine Sodium (Synthroid) 25 Mcg Tablet, 25 MCG PO DAILY Metoprolol Tartrate (Metoprolol Tartrate) 50 Mg Tablet, 50 MG PO BID Potassium Chloride (Potassium Chloride) 20 Meq Tab.er.prt, 20 MEQ PO DAILY Tamsulosin HCl (Flomax) 0.4 Mg Capsule, 0.4 MG PO DAILY Scheduled PRN Acetaminophen (Tylenol) 325 Mg Tablet, 650 MG PO Q4H PRN for PAIN / FEVER Allergies Coded Allergies: Penicillins (Verified Allergy, Intermediate, swelling, 03/10/20) prednisone (Verified Adverse Reaction, Intermediate, tachycardia, 03/10/20) A-FIB/CHADSVASC A-FIB History Current/History of A-Fib/PAF?: No Current PO Anticoag Therapy: No Age/Risk Factor Scoring CHADSVASC: CHADSVASC Response (Comments) Value Age Risk Factor Age < 65 years old 0 Gender Risk Factor Female 1 Hx of CHF Yes 1 Hx of HTN Yes 1 Hx of Stroke/TIA/or VTE Yes 2 Hx of Diabetes Yes 1 Hx of Vascular Disease Yes 1 Total 7 HEDY WIGGINS MD Aug 08, 2020 18:09
[2020-08-08] MEDS ORDERED: ACETAMINOPHEN 325 MG TAB PO PRN (18:15)
[2020-08-08] MEDS ORDERED: IPRATROPIUM 0.5MG/ALBUTEROL 2.5MG INH SOL UD 3ML (DUONEB) NEB PRN (18:30)
[2020-08-08 19:57] VITALS: BP 145/72
[2020-08-08] MEDS: IPRATROPIUM 0.5MG/ALBUTEROL 2.5MG INH SOL UD 3ML (DUONEB) NEB SCH (20:00)
[2020-08-08] MEDS: EZETIMIBE 10 MG TAB (ZETIA) PO SCH (21:15)
[2020-08-08] MEDS: DULoxetine 30 MG CAP (CYMBALTA) PO SCH (21:15)
[2020-08-08] MEDS: METOPROLOL TART 50 MG TAB PO SCH (21:15)
[2020-08-08] MEDS: ATORVASTATIN 20 MG TAB PO SCH (21:15)
[2020-08-08] MEDS: DOXYCYCLINE HYCLATE 100 MG in D5W MINI-BAG PLUS 100 ML IV SCH (21:16)
[2020-08-08] MEDS: amLODIPine 10 MG TAB PO SCH (21:16)
[2020-08-08] MEDS: MEROPENEM INJ 1 GM in IV 1 EA IV SCH (22:46)
[2020-08-08] MEDS: LEVEMIR (INSULIN DETEMIR) 1 UNITS/0.01ML SC SCH (22:59)
[2020-08-09 01:12] LABS: CK-MB VALUE MASS 2.1 NG/ML (<3.6); CPK CREATINE PHOSPHOKINASE 41 U/L (26-192); MB/CK RELATIVE INDEX 5.12 (< OR =4); TROPONIN I < 0.02 NG/ML (< 0.10)
[2020-08-09] MEDS: LEVOTHYROXINE 25MCG TABLET (0.025MG) PO SCH (05:27)
[2020-08-09] MEDS: MEROPENEM INJ 1 GM in IV 1 EA IV SCH ×2 (05:27→13:21)
--- NOTE | 2020-08-09 05:49 | ECGEPIP ---
[facility] - ED Test Date: 2020-08-08 Pat Name: MARIA TERESA PIZARRO Department: Room: - Gender: Female Labeling Specialist: darren : 1965 Requested By: Clotilde Galvan Order Number: [id number] Reading MD: Richmond Zelaya Measurements Intervals [place] Rate: 54 P: 40 MN: 193 QRS: -16 QRSD: 87 T: 114 QT: 429 QTc: 408 Interpretive Statements SINUS BRADYCARDIA POOR R WAVE PROGRESSION NONSPECIFIC T-WAVE ABNORMALITY SIMILAR TO 03/10/20 Electronically Signed on 08-09-2020 5:49:22 EST by Richmond Zelaya
[2020-08-09 06:00] VITALS: BP 122/58
[2020-08-09 06:29] LABS: BASO # 0.1 10^3/uL (0.0-0.2); EOS # 0.5 10^3/uL (0.0-0.5); EOS % 7.3 % (0.0-3.0); HEMATOCRIT 30.3 % (36.0-47.0); HEMOGLOBIN 9.1 g/dl (12.0-15.5); LYMPH # 1.6 10^3/uL (1.5-5.0); LYMPH % 23.5 % (24.0-44.0); MEAN CORPUSCULAR HEMOGLOBIN 28.9 pg (27.0-33.0); MEAN CORPUSCULAR VOLUME 96.2 fl (80.0-96.0); MONO # 0.9 10^3/uL (0.0-0.8); MONO % 13.6 % (0.0-5.0); NEUTROPHILS # 3.7 10^3/uL (1.5-8.5); NEUTROPHILS % 54.2 % (36.0-66.0); PLATELET COUNT, AUTOMATED 421 10^3/uL (150-450); RED BLOOD COUNT 3.15 10^6/uL (4.00-5.40); WHITE BLOOD COUNT 6.9 10^3/uL (4.0-10.0)
[2020-08-09 06:45] LABS: HEMOGLOBIN A1c 7.7 %
[2020-08-09 07:05] LABS: BLOOD UREA NITROGEN 32 MG/DL (7-18); CALCIUM LEVEL 8.5 MG/DL (8.5-10.1); CARBON DIOXIDE LEVEL 27 MEQ/L (21-32); CHLORIDE LEVEL 108 MEQ/L (98-107); CHOLESTEROL LEVEL 89 MG/DL (<200); CHOLESTEROL RISK RATIO 1.648 (<5); CK-MB VALUE MASS 1.7 NG/ML (<3.6); CPK CREATINE PHOSPHOKINASE 48 U/L (26-192); CREATININE FOR GFR 1.85 MG/DL (0.55-1.30); GLOMERULAR FILTRATION RATE 30.2 (>51); GLUCOSE, FASTING 93 MG/DL (70-100); HDL CHOLESTEROL 54 MG/DL (>40); LDL CHOLESTEROL 22 MG/DL (<100); MB/CK RELATIVE INDEX 3.54 (< OR =4); NON-HDL-C 35 MG/DL; NT-PRO BNP 2992 PG/ML (<125); POTASSIUM SERUM 4.9 MEQ/L (3.5-5.1); SODIUM LEVEL 140 MEQ/L (136-145); TRIGLYCERIDES LEVEL 63 MG/DL (<150); TROPONIN I < 0.02 NG/ML (< 0.10)
[2020-08-09] MEDS: HumaLOG INSULIN (NovoLOG) PER UNIT SC SCH ×4 (07:18→22:44)
[2020-08-09] MEDS: FUROSEMIDE 40 MG TAB PO SCH (07:39)
[2020-08-09] MEDS: METOPROLOL TART 50 MG TAB PO SCH ×2 (09:00→22:48)
[2020-08-09] MEDS ORDERED: POTASSIUM CHLORIDE 10 MEQ SR TABLET PO SCH (09:00)
[2020-08-09] MEDS: DOXYCYCLINE HYCLATE 100 MG in D5W MINI-BAG PLUS 100 ML IV SCH ×2 (09:05→22:44)
[2020-08-09] MEDS: TAMSULOSIN 0.4 MG CAP PO SCH (09:06)
[2020-08-09] MEDS: CLOPIDOGREL 75 MG TAB PO SCH (09:06)
[2020-08-09] MEDS: ASPIRIN 81 MG ENTERIC TAB PO SCH (09:06)
[2020-08-09] MEDS: IPRATROPIUM 0.5MG/ALBUTEROL 2.5MG INH SOL UD 3ML (DUONEB) NEB SCH ×4 (11:48→19:30)
[2020-08-09] MEDS ORDERED: MAXI0.1O OD (12:30)
[2020-08-09] MEDS ORDERED: TOBRADEX OPHTH SUSP 2.5 ML OD SCH (13:00)
[2020-08-09] MEDS: MAXITROL OPHTH OINT 3.5 GM OD SCH ×3 (13:21→22:44)
[2020-08-09 14:00] VITALS: BP 135/72
--- NOTE | 2020-08-09 20:40 | IPNPDOC ---
Date Seen The patient was seen on 08/09/20. Progress Note SUBJECTIVE: Patient feels improved, on 4 L NC. Right eye swelling has been addressed by ophthalmology as o/p. Denies incr cough, shortness of breath, chest pain, fevers, chills, n/v. OBJECTIVE: PHYSICAL EXAMINATION: VITAL SIGNS: see below GENERAL APPEARANCE: no distress. speaks in full sentences. no pallor or cyanosis appears older than her stated age. right eye ptosis. disheveled HEENT: no jvd. dry mm. no carotid bruits. no stridor, tracheal deviation, or nasal flaring. no thyromegaly or cervical LAD. no pharyngeal erythema. right eyelid swelling, slightly discolored, no conjunctivitis- patient states this is much improved from two weeks ago CARDIOVASCULAR:s1s2 RRR no m/r/g, nondisplaced pmi LUNGS: left lung clear. right lung fine crackles middle lobe and base. no wheezing ABDOMEN: soft nt nd +bs x 4quadrants no fluid wave. no hsm. no abdominal bruits EXTREMITIES: trace le edema b/l SKIN: no cyanosis. warm dry pink in color well perfused LABORATORY DATA: See below. IMAGING: Chest CT without IV contrast: Right middle lobe and right lower lobe infiltrates as described. Small right pleural effusions. Multiple right lung nodular densities as described. Multiple normal size mediastinal nodes. Cardiomegaly. Coronary artery vascular stents. MICROBIOLOGY: Please see below. 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 Pt had noticed increasing KAUR with ambulation, chronic cough productive of white sputum, without chills, h/a, n/v/abd pain, diarrhea, rhinorrhea, sore throat. COVID-19 negative in the ER. CXR: right PNA and small pleural effusion. She denied pnd, orthopnea, LE edema, or weight gain.Hospitalist was asked to admit for CAP. PLAN: Community Acquired Pneumonia RML/RLL -supplemental oxygen to keep o2 sat>90%, currently 4 L NC -due to PCN allergy, meropenem iv q8hrs, doxycycline for atypical coverage. -sputum and blood cultures obtained, f/u results -nebs qid and prn q1hr -de-escalate abx once sputum culture sensitivities are available -droplet precautions Acute Hypoxic Respiratory Failure due to CAP --C/w treatment above Right eye swelling, ptosis -Patient has been seeing production ski repairer as o/p, has been on o/p abx -Will request notes -C/w eye ointment as prescribed, on abx here CVA / Left vertebral artery thrombosis -PT/OT -continue home meds. obtain records from PCP Systolic CHF, compensated -monitor fluid balance. strict i/o, weigh daily, 2liter fluid restriction -C/w home meds. -Follows with pattern carrier Dr. Nascimento DM2 -check A1c, consistent carbs diet, insulin sliding scale, hypoglycemic protocol HTN -controlled. obtain med list and progress note from Dr. Nascimento, pattern carrier Asthma, compensated -no wheezing on exam -qid nebs and e8ncxfx for sob Dyslipidemia -check lipid panel. -resume home meds -obtain med list and progress note from Dr. Nascimento, pattern carrier CAD w coronary stents -resume home meds. noacute ischemic symptoms. -cycle cardiac markers. -obtain med list and progress note from Dr. Nascimento, pattern carrier Hypothyroidism -resume synthroid, check tsh GERD -asymptomatic Anxiety/Depression -no c/o. Vitamin D deficiency -outpt fu DVT prophylaxis:lovenox Code status: full code. DISPOSITION: Will need to be off O2 prior to discussing d/c. Plan is home when medically appropriate. VS, I&O, 24H, Fishbone Vital Signs/I&O Vital Signs Date Time Temp Pulse Resp B/P (MAP) Pulse Ox O2 Delivery O2 Flow Rate FiO2 08/09/20 20:31 93 Nasal Cannula 1.0 08/09/20 14:00 97.9 63 17 135/72 (93) I&O- Last 24 Hours up to 6 AM 08/09/20 06:00 Intake Total 30 ml Balance 30 ml Laboratory Data 24H LABS Laboratory Tests 2 08/08/20 23:55: Total Creatine Kinase 41, Creatine Kinase MB 2.1, Creatine Kinase MB Relative Index 5.12H, Troponin I < 0.02 08/09/20 05:39: Total Creatine Kinase 48, Creatine Kinase MB 1.7, Creatine Kinase MB Relative Index 3.54, Troponin I < 0.02, Immature Granulocyte % (Auto) 0.4, Neutrophils (%) (Auto) 54.2, Lymphocytes (%) (Auto) 23.5L, Monocytes (%) (Auto) 13.6H, Eosinophils (%) (Auto) 7.3H, Basophils (%) (Auto) 1.0, Neutrophils # (Auto) 3.7, Lymphocytes # (Auto) 1.6, Monocytes # (Auto) 0.9H, Eosinophils # (Auto) 0.5, Basophils # (Auto) 0.1, Nucleated Red Blood Cells % (auto) 0.0, Anion Gap 5L, Glomerular Filtration Rate 30.2L, Estimated Mean Plasma Glucose 174H, Hemoglobin A1c 7.7, Calcium Level 8.5, [id number]-[id number]-Type Natriuretic Peptide 2992H, Triglycerides Level 63, Total Cholesterol 89, LDL Cholesterol 22, Non-HDL Cholesterol (LDL + VLDL) 35, Total HDL Cholesterol 54, Cholesterol/HDL Ratio 1.648, Thyroid Stimulating Hormone (TSH) 7.530H 08/09/20 11:33: Bedside Glucose (Misc Panel) 192H 08/09/20 16:58: Bedside Glucose (Misc Panel) 170H CBC/BMP Laboratory Tests 08/09/20 05:39 Microbiology Microbiology 08/08/20 Blood Culture - Preliminary, Resulted No growth after 24 hours . All specim... 08/08/20 Blood Culture - Preliminary, Resulted No growth after 24 hours . All specim... 08/08/20 Respiratory Virus Panel (PCR) (CRISPIN) - Final, Complete Current Medications Current Medications Medications (Trade) Dose Ordered Sig/Abram Route PRN Reason Start Time Stop Time Status Last Admin Dose Admin Acetaminophen (Tylenol Tab) 650 mg Q4H PRN PO PAIN / FEVER 08/08/20 18:15 Albuterol/ Ipratropium (Combivent Respimat 100-20mcg) 4 puff Q20M INH 08/08/20 14:30 08/08/20 15:11 DC 08/08/20 14:45 Albuterol/ Ipratropium (Duoneb (Ipr 0.5mg/Alb 2.5mg)) 3 ml Q2HP PRN NEB SOB/WHEEZING 08/08/20 18:30 Albuterol/ Ipratropium (Duoneb (Ipr 0.5mg/Alb 2.5mg)) 3 ml RQID NEB 08/08/20 20:00 08/09/20 19:30 Amlodipine Besylate (Norvasc) 10 mg QHS PO 08/08/20 21:00 08/08/20 21:16 Aspirin (Ecotrin) 81 mg DAILY PO 08/09/20 09:00 08/09/20 09:06 Atorvastatin Calcium (Lipitor) 80 mg QHS PO 08/08/20 21:00 08/08/20 21:15 Ceftriaxone Sodium 2 gm/ Dextrose 50 ml @ 100 mls/hr Q12H IV 08/08/20 18:00 08/08/20 16:56 DC Clopidogrel Bisulfate (PLAVix) 75 mg DAILY PO 08/09/20 09:00 08/09/20 09:06 Dextrose (Dextrose 50%) 25 ml ASDIRECTED PRN IV SEE LABEL COMMENTS 08/08/20 16:30 Doxycycline Hyclate 100 mg/ Dextrose 100 ml @ 100 mls/hr Q12H IV 08/08/20 21:00 08/13/20 09:59 08/09/20 09:05 Duloxetine HCl (Cymbalta) 60 mg QHS PO 08/08/20 21:00 08/08/20 21:15 EZETIMIBE (Zetia) 10 mg QHS PO 08/08/20 21:00 08/08/20 21:15 Furosemide (Lasix) 40 mg DAILY PO 08/09/20 09:00 Glucagon (Glucagon) 1 mg ASDIRECTED PRN SC SEE LABEL COMMENTS 08/08/20 16:30 Glucose (Glucose) 16 GM ASDIRECTED PRN PO SEE LABEL COMMENTS 08/08/20 16:30 Home Med (Med Rec Complete!) ASDIRECTED XX 08/08/20 15:15 08/08/20 15:09 DC Insulin Detemir (Levemir Insulin) 20 units QHS SC 08/08/20 21:00 Insulin Human Lispro (HumaLOG INSULIN) SEE PROTOCOL TABLE AC SC 08/08/20 17:30 08/09/20 17:05 Insulin Human Lispro (HumaLOG INSULIN) SEE PROTOCOL TABLE QHS SC 08/08/20 21:00 Levothyroxine Sodium (Synthroid) 25 mcg DAILY@0600 PO 08/09/20 06:00 08/09/20 05:27 Meropenem 1 gm/IV Miscellaneous Supplies 50 ml @ 100 mls/hr Q8H IV 08/08/20 22:00 08/09/20 13:21 Metoprolol Tartrate (Lopressor) 50 mg BID PO 08/08/20 21:00 08/08/20 21:15 Neomycin/ Polymyxin/ Dexamethasone (Maxitrol) APPLY TO RIGHT EYE QID OD 08/09/20 13:00 08/09/20 17:06 Potassium Chloride (Micro-K Extencaps) 20 meq DAILY PO 08/09/20 09:00 08/09/20 09:06 Tamsulosin HCl (Flomax) 0.4 mg DAILY PO 08/09/20 09:00 08/09/20 09:06 Tobramycin/ Dexamethasone (Tobradex Ophth Susp) 1 drop QID OD 08/09/20 13:00 Cancel Allergies Coded Allergies: Penicillins (Verified Allergy, Intermediate, swelling, 03/10/20) prednisone (Verified Adverse Reaction, Intermediate, tachycardia, 03/10/20) Dorothy Burrows MD Aug 09, 2020 20:40
[2020-08-09 22:00] VITALS: BP 136/76
[2020-08-09] MEDS: DULoxetine 30 MG CAP (CYMBALTA) PO SCH (22:43)
[2020-08-09] MEDS: ATORVASTATIN 20 MG TAB PO SCH (22:44)
[2020-08-09] MEDS: LEVEMIR (INSULIN DETEMIR) 1 UNITS/0.01ML SC SCH (22:44)
[2020-08-09] MEDS: EZETIMIBE 10 MG TAB (ZETIA) PO SCH (22:48)
[2020-08-09] MEDS: amLODIPine 10 MG TAB PO SCH (22:48)
[2020-08-10] MEDS: MEROPENEM INJ 1 GM in IV 1 EA IV SCH ×3 (00:21→13:36)
[2020-08-10] MEDS: DULoxetine 30 MG CAP (CYMBALTA) PO SCH ×2 (02:00→21:31)
[2020-08-10] MEDS: LEVOTHYROXINE 25MCG TABLET (0.025MG) PO SCH (05:33)
[2020-08-10 06:00] VITALS: BP 115/53
[2020-08-10 06:33] LABS: BASO # 0.1 10^3/uL (0.0-0.2); BASO % 1.2 % (0.0-1.0); EOS # 0.6 10^3/uL (0.0-0.5); EOS % 8.5 % (0.0-3.0); HEMATOCRIT 29.9 % (36.0-47.0); HEMOGLOBIN 9.3 g/dl (12.0-15.5); LYMPH # 1.3 10^3/uL (1.5-5.0); LYMPH % 16.8 % (24.0-44.0); MEAN CORPUSCULAR HEMOGLOBIN 30.1 pg (27.0-33.0); MEAN CORPUSCULAR HGB CONC 31.1 g/dl (32.0-36.5); MEAN CORPUSCULAR VOLUME 96.8 fl (80.0-96.0); MONO % 12.7 % (0.0-5.0); NEUTROPHILS # 4.5 10^3/uL (1.5-8.5); NEUTROPHILS % 60.5 % (36.0-66.0); PLATELET COUNT, AUTOMATED 399 10^3/uL (150-450); RED BLOOD COUNT 3.09 10^6/uL (4.00-5.40); WHITE BLOOD COUNT 7.5 10^3/uL (4.0-10.0)
[2020-08-10 07:01] LABS: CALCIUM LEVEL 8.7 MG/DL (8.5-10.1); CREATININE FOR GFR 1.77 MG/DL (0.55-1.30); GLOMERULAR FILTRATION RATE 31.8 (>51); POTASSIUM SERUM 5.2 MEQ/L (3.5-5.1)
[2020-08-10] MEDS: IPRATROPIUM 0.5MG/ALBUTEROL 2.5MG INH SOL UD 3ML (DUONEB) NEB SCH ×4 (07:05→19:16)
[2020-08-10] MEDS: FUROSEMIDE 40 MG TAB PO SCH (08:13)
[2020-08-10] MEDS: METOPROLOL TART 50 MG TAB PO SCH ×2 (08:13→21:32)
[2020-08-10] MEDS: DOXYCYCLINE HYCLATE 100 MG in D5W MINI-BAG PLUS 100 ML IV SCH ×2 (08:35→21:32)
[2020-08-10] MEDS: HumaLOG INSULIN (NovoLOG) PER UNIT SC SCH ×4 (08:40→21:00)
[2020-08-10] MEDS: MAXITROL OPHTH OINT 3.5 GM OD SCH ×4 (08:41→21:33)
[2020-08-10] MEDS: ASPIRIN 81 MG ENTERIC TAB PO SCH (08:41)
[2020-08-10] MEDS: CLOPIDOGREL 75 MG TAB PO SCH (08:41)
[2020-08-10] MEDS: TAMSULOSIN 0.4 MG CAP PO SCH (08:41)
[2020-08-10 14:00] VITALS: BP 117/56
--- NOTE | 2020-08-10 16:26 | IPNPDOC ---
Date Seen The patient was seen on 08/10/20. Progress Note SUBJECTIVE: Decreased O2 requirement to 1 L NC, feels improved since yesterday. Encouraging ambulation with assistance. Nursing states patient complaining of some dysphagia since CVA this summer, unsteadiness on feet. Ordered swallowing eval, PT/OT. Denies incr cough, shortness of breath, chest pain, fevers, chills, n/v. OBJECTIVE: PHYSICAL EXAMINATION: VITAL SIGNS: see below GENERAL APPEARANCE: no distress. speaks in full sentences. no pallor or cyanosis appears older than her stated age. right eye ptosis. disheveled HEENT: no jvd. dry mm. no carotid bruits. no stridor, tracheal deviation, or nasal flaring. no thyromegaly or cervical LAD. no pharyngeal erythema. right eyelid swelling, slightly discolored, no conjunctivitis- patient states this is much improved from two weeks ago CARDIOVASCULAR:s1s2 RRR no m/r/g, nondisplaced pmi LUNGS: B/l fine crackles middle lobe and base. no wheezing ABDOMEN: soft nt nd +bs x 4quadrants no fluid wave. no hsm. no abdominal bruits EXTREMITIES: trace le edema b/l SKIN: no cyanosis. warm dry pink in color well perfused LABORATORY DATA: See below. IMAGING: Chest CT without IV contrast: Right middle lobe and right lower lobe infiltrates as described. Small right pleural effusions. Multiple right lung nodular densities as described. Multiple normal size mediastinal nodes. Cardiomegaly. Coronary artery vascular stents. MICROBIOLOGY: Please see below. 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 Pt had noticed increasing KAUR with ambulation, chronic cough productive of white sputum, without chills, h/a, n/v/abd pain, diarrhea, rhinorrhea, sore throat. COVID-19 negative in the ER. CXR: right PNA and small pleural effusion. She denied pnd, orthopnea, LE edema, or weight gain.Hospitalist was asked to admit for CAP. PLAN: Community Acquired Pneumonia RML/RLL -supplemental oxygen to keep o2 sat>90%, currently 1 L NC -WBC wnl -sputum cx unable to be obtained -BCX NG -nebs qid and prn q1hr -Acapella Q2H while awake -C/w meropenem iv q8hrs, doxycycline for atypical coverage. If no sputum cx available, consider oral levofloxacin when on RA. -droplet precautions Acute Hypoxic Respiratory Failure due to CAP --C/w treatment above Right eye swelling, ptosis -Patient has been seeing agricultural research technologist as o/p, has been on o/p abx -C/w eye ointment as prescribed, on abx here CVA 2/2 to left vertebral artery thrombosis -Dysphagia reported by patient -PT/OT -F/u swallowing eval -continue home meds. obtain records from PCP Systolic CHF, compensated -monitor fluid balance. strict i/o, weigh daily, 2liter fluid restriction -C/w home meds. -Follows with college physics instructor Dr. Nascimento DM2 -check A1c, consistent carbs diet, insulin sliding scale, hypoglycemic protocol HTN -controlled. -C/w home meds Asthma, compensated -no wheezing on exam -qid nebs and e0zxzwf for sob Dyslipidemia -check lipid panel. -resume home meds CAD w coronary stents -C/w home meds. no acute ischemic symptoms. - cardiac markers neg -Dr. Nascimento, college physics instructor Hypothyroidism -C/w synthroid GERD -asymptomatic Anxiety/Depression -no c/o. Vitamin D deficiency -outpt fu DVT prophylaxis:lovenox Code status: full code. DISPOSITION: Will need to be off O2 prior to discussing d/c. Plan is home when medically appropriate. VS, I&O, 24H, Fishbone Vital Signs/I&O Vital Signs Date Time Temp Pulse Resp B/P (MAP) Pulse Ox O2 Delivery O2 Flow Rate FiO2 08/10/20 14:00 97.9 68 19 117/56 (76) 94 Nasal Cannula 1.0 I&O- Last 24 Hours up to 6 AM 08/10/20 06:00 Intake Total 2930 ml Output Total 300 ml Balance 2630 ml Laboratory Data 24H LABS Laboratory Tests 2 08/09/20 16:58: Bedside Glucose (Misc Panel) 170H 08/09/20 20:34: Bedside Glucose (Misc Panel) 151H 08/10/20 05:41: Immature Granulocyte % (Auto) 0.3, Neutrophils (%) (Auto) 60.5, Lymphocytes (%) (Auto) 16.8L, Monocytes (%) (Auto) 12.7H, Eosinophils (%) (Auto) 8.5H, Basophils (%) (Auto) 1.2H, Neutrophils # (Auto) 4.5, Lymphocytes # (Auto) 1.3L, Monocytes # (Auto) 1.0H, Eosinophils # (Auto) 0.6H, Basophils # (Auto) 0.1, Nucleated Red Blood Cells % (auto) 0.0, Anion Gap 1L, Glomerular Filtration Rate 31.8L, Calcium Level 8.7 08/10/20 11:40: Bedside Glucose (Misc Panel) 172H CBC/BMP Laboratory Tests 08/10/20 05:41 Microbiology Microbiology 08/08/20 Blood Culture - Preliminary, Resulted No growth after 24 hours . All specim... 08/08/20 Blood Culture - Preliminary, Resulted No Growth after 48 hours. All Specime... 08/08/20 Respiratory Virus Panel (PCR) (CRISPIN) - Final, Complete Current Medications Current Medications Medications (Trade) Dose Ordered Sig/Abram Route PRN Reason Start Time Stop Time Status Last Admin Dose Admin Acetaminophen (Tylenol Tab) 650 mg Q4H PRN PO PAIN / FEVER 08/08/20 18:15 Albuterol/ Ipratropium (Combivent Respimat 100-20mcg) 4 puff Q20M INH 08/08/20 14:30 08/08/20 15:11 DC 08/08/20 14:45 Albuterol/ Ipratropium (Duoneb (Ipr 0.5mg/Alb 2.5mg)) 3 ml Q2HP PRN NEB SOB/WHEEZING 08/08/20 18:30 Albuterol/ Ipratropium (Duoneb (Ipr 0.5mg/Alb 2.5mg)) 3 ml RQID NEB 08/08/20 20:00 08/10/20 15:52 Amlodipine Besylate (Norvasc) 10 mg QHS PO 08/08/20 21:00 08/09/20 22:48 Aspirin (Ecotrin) 81 mg DAILY PO 08/09/20 09:00 08/10/20 08:41 Atorvastatin Calcium (Lipitor) 80 mg QHS PO 08/08/20 21:00 08/09/20 22:44 Ceftriaxone Sodium 2 gm/ Dextrose 50 ml @ 100 mls/hr Q12H IV 08/08/20 18:00 08/08/20 16:56 DC Clopidogrel Bisulfate (PLAVix) 75 mg DAILY PO 08/09/20 09:00 08/10/20 08:41 Dextrose (Dextrose 50%) 25 ml ASDIRECTED PRN IV SEE LABEL COMMENTS 08/08/20 16:30 Doxycycline Hyclate 100 mg/ Dextrose 100 ml @ 100 mls/hr Q12H IV 08/08/20 21:00 08/13/20 09:59 08/10/20 08:35 Duloxetine HCl (Cymbalta) 60 mg QHS PO 08/08/20 21:00 08/09/20 22:43 EZETIMIBE (Zetia) 10 mg QHS PO 08/08/20 21:00 08/09/20 22:48 Furosemide (Lasix) 40 mg DAILY PO 08/09/20 09:00 Glucagon (Glucagon) 1 mg ASDIRECTED PRN SC SEE LABEL COMMENTS 08/08/20 16:30 Glucose (Glucose) 16 GM ASDIRECTED PRN PO SEE LABEL COMMENTS 08/08/20 16:30 Home Med (Med Rec Complete!) ASDIRECTED XX 08/08/20 15:15 08/08/20 15:09 DC Insulin Detemir (Levemir Insulin) 20 units QHS SC 08/08/20 21:00 Insulin Human Lispro (HumaLOG INSULIN) SEE PROTOCOL TABLE AC SC 08/08/20 17:30 08/10/20 12:32 Insulin Human Lispro (HumaLOG INSULIN) SEE PROTOCOL TABLE QHS SC 08/08/20 21:00 Levothyroxine Sodium (Synthroid) 25 mcg DAILY@0600 PO 08/09/20 06:00 08/10/20 05:33 Meropenem 1 gm/IV Miscellaneous Supplies 50 ml @ 100 mls/hr Q8H IV 08/08/20 22:00 08/10/20 13:36 Metoprolol Tartrate (Lopressor) 50 mg BID PO 08/08/20 21:00 08/09/20 22:48 Neomycin/ Polymyxin/ Dexamethasone (Maxitrol) APPLY TO RIGHT EYE QID OD 08/09/20 13:00 08/10/20 13:37 Potassium Chloride (Micro-K Extencaps) 20 meq DAILY PO 08/09/20 09:00 08/10/20 08:32 DC 08/09/20 09:06 Tamsulosin HCl (Flomax) 0.4 mg DAILY PO 08/09/20 09:00 08/10/20 08:41 Tobramycin/ Dexamethasone (Tobradex Ophth Susp) 1 drop QID OD 08/09/20 13:00 Cancel Allergies Coded Allergies: Penicillins (Verified Allergy, Intermediate, swelling, 03/10/20) prednisone (Verified Adverse Reaction, Intermediate, tachycardia, 03/10/20) Dorothy Burrows MD Aug 10, 2020 16:26
[2020-08-10] MEDS: LEVEMIR (INSULIN DETEMIR) 1 UNITS/0.01ML SC SCH (21:00)
[2020-08-10] MEDS: ATORVASTATIN 20 MG TAB PO SCH (21:31)
[2020-08-10] MEDS: EZETIMIBE 10 MG TAB (ZETIA) PO SCH (21:32)
[2020-08-10] MEDS: amLODIPine 10 MG TAB PO SCH (21:32)
[2020-08-10] MEDS ORDERED: FAMOTIDINE 20 MG TAB PO ONE (21:45)
[2020-08-10 22:00] VITALS: BP 141/80
[2020-08-11] MEDS: MEROPENEM INJ 1 GM in IV 1 EA IV SCH ×2 (00:26→05:52)
[2020-08-11] MEDS: LEVOTHYROXINE 25MCG TABLET (0.025MG) PO SCH (05:51)
[2020-08-11 06:00] VITALS: BP 118/58
[2020-08-11 06:09] LABS: BASO # 0.1 10^3/uL (0.0-0.2); BASO % 0.8 % (0.0-1.0); EOS # 1.1 10^3/uL (0.0-0.5); EOS % 13.3 % (0.0-3.0); HEMATOCRIT 28.6 % (36.0-47.0); HEMOGLOBIN 8.4 g/dl (12.0-15.5); LYMPH # 1.9 10^3/uL (1.5-5.0); MEAN CORPUSCULAR HEMOGLOBIN 28.8 pg (27.0-33.0); MEAN CORPUSCULAR HGB CONC 29.4 g/dl (32.0-36.5); MEAN CORPUSCULAR VOLUME 97.9 fl (80.0-96.0); MONO # 1.3 10^3/uL (0.0-0.8); MONO % 15.8 % (0.0-5.0); NEUTROPHILS # 3.9 10^3/uL (1.5-8.5); NEUTROPHILS % 46.9 % (36.0-66.0); PLATELET COUNT, AUTOMATED 352 10^3/uL (150-450); RED BLOOD COUNT 2.92 10^6/uL (4.00-5.40); WHITE BLOOD COUNT 8.3 10^3/uL (4.0-10.0)
[2020-08-11 06:36] LABS: CALCIUM LEVEL 8.9 MG/DL (8.5-10.1); CREATININE FOR GFR 1.69 MG/DL (0.55-1.30); GLOMERULAR FILTRATION RATE 33.6 (>51); POTASSIUM SERUM 5.4 MEQ/L (3.5-5.1)
[2020-08-11] MEDS: IPRATROPIUM 0.5MG/ALBUTEROL 2.5MG INH SOL UD 3ML (DUONEB) NEB SCH ×4 (07:24→19:13)
[2020-08-11] MEDS: CLOPIDOGREL 75 MG TAB PO SCH (08:12)
[2020-08-11] MEDS: DOXYCYCLINE HYCLATE 100 MG in D5W MINI-BAG PLUS 100 ML IV SCH (08:12)
[2020-08-11] MEDS: HumaLOG INSULIN (NovoLOG) PER UNIT SC SCH ×3 (08:12→17:15)
[2020-08-11] MEDS: TAMSULOSIN 0.4 MG CAP PO SCH (08:12)
[2020-08-11] MEDS: FUROSEMIDE 40 MG TAB PO SCH (08:13)
[2020-08-11] MEDS: METOPROLOL TART 50 MG TAB PO SCH (08:13)
[2020-08-11] MEDS: ASPIRIN 81 MG ENTERIC TAB PO SCH (08:14)
[2020-08-11] MEDS: MAXITROL OPHTH OINT 3.5 GM OD SCH ×3 (08:15→18:11)
[2020-08-11] MEDS ORDERED: LevoFLOXacin 500 MG TABLET PO ONE (09:00)
[2020-08-11] MEDS ORDERED: OXYMETAZOLINE 0.05% NASAL SPRAY (AFRIN) PRN (10:30)
--- NOTE | 2020-08-11 16:48 | IPNPDOC ---
Date Seen The patient was seen on 08/11/20. Progress Note SUBJECTIVE: Flexible endoscopic evaluation done today due to dysphagia, one of the vocal cords was not functioning well, advised to keep NPO until alternative plan for nutrition is discussed (NG tube/feeding tube). States that she was aspirating on nectar, honey and pudding/pureed foods. Will consult both ENT and general surgery to discuss options, patient is in agreement. Denies incr cough, shortness of breath, chest pain, fevers, chills, n/v. OBJECTIVE: PHYSICAL EXAMINATION: VITAL SIGNS: see below GENERAL APPEARANCE: no distress. speaks in full sentences. no pallor or cyanosis appears older than her stated age. right eye ptosis. HEENT: no jvd. dry mm. no carotid bruits. no stridor, tracheal deviation, or nasal flaring. No thyromegaly or cervical LAD. no pharyngeal erythema. right eyelid swelling, slightly discolored, no conjunctivitis- patient states this is much improved from two weeks ago CARDIOVASCULAR:s1s2 RRR no m/r/g, nondisplaced pmi LUNGS: B/l fine crackles middle lobe and base. no wheezing ABDOMEN: soft nt nd +bs x 4quadrants no fluid wave. no hsm. no abdominal bruits EXTREMITIES: trace le edema b/l SKIN: no cyanosis. warm dry pink in color well perfused LABORATORY DATA: See below. IMAGING: Chest CT without IV contrast: Right middle lobe and right lower lobe infiltrates as described. Small right pleural effusions. Multiple right lung nodular densities as described. Multiple normal size mediastinal nodes. Cardiomegaly. Coronary artery vascular stents. MICROBIOLOGY: Please see below. 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 Pt had noticed increasing KAUR with ambulation, chronic cough productive of white sputum, without chills, h/a, n/v/abd pain, diarrhea, rhinorrhea, sore throat. COVID-19 negative in the ER. CXR: right PNA and small pleural effusion. She denied pnd, orthopnea, LE edema, or weight gain.Hospitalist was asked to admit for CAP. PLAN: Dysphagia with aspiration -FEES showed aspiration risk for all thickened foods also, vocal cord dys function. -Speech recommending NPO status until alternative feeding route decided -Will make NPO now, switch over all meds to IV if possible -Will consult general surgery to discuss them discussing feeding tube with patient. Will also see if they would like NG tube in mean time -Will consult ENT to evaluate vocal cord dysfunction Aspiration PNA RML/RLL -Supplemental oxygen to keep o2 sat>90%, currently 1-2 L NC -WBC wnl -sputum cx unable to be obtained, BCX NG -nebs qid and prn q1hr, Acapella Q2H while awake -Switched to oral Levofloxacin today but will switch back to IV as she is now NPO. Acute Hypoxic Respiratory Failure due to CAP -C/w treatment above Right eye swelling, ptosis -Improving -Patient has been seeing professor of french as o/p, has been on o/p abx -C/w eye ointment as prescribed, on abx here CVA 2/2 to left vertebral artery thrombosis -Dysphagia reported by patient, swallowing eval above -PT/OT Systolic CHF, compensated -monitor fluid balance. strict i/o, weigh daily, 2liter fluid restriction -C/w home meds with feeding tube or NG tube -Follows with [employer] weaver Dr. Nascimento DM2 -insulin sliding scale -NPO -hypoglycemic protocol HTN -controlled. -See if can convert home meds, if not rsume with with feeding tube or NG tube Asthma, compensated -no wheezing on exam -qid nebs and e6iyavy for sob Dyslipidemia -resume home meds with feeding tube or NG tube CAD w coronary stents -C/w home meds. no acute ischemic symptoms. - cardiac markers neg -Dr. 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 Vitamin D deficiency -outpt fu DVT prophylaxis -lovenox Code status: full code. DISPOSITION: Consulting general surgery, ENT today. F/u recommendations. Plan is still home when medically improved. VS, I&O, 24H, Fishbone Vital Signs/I&O Vital Signs Date Time Temp Pulse Resp B/P (MAP) Pulse Ox O2 Delivery O2 Flow Rate FiO2 08/11/20 12:25 2.0 08/11/20 08:13 81 100/81 08/11/20 07:24 Nasal Cannula 08/11/20 06:00 98.3 18 94 I&O- Last 24 Hours up to 6 AM0 08/11/20 06:00 Intake Total 1960 ml Output Total 400 ml Balance 1560 ml Laboratory Data 24H LABS Laboratory Tests 2 08/10/20 17:02: Bedside Glucose (Misc Panel) 169H 08/10/20 20:36: Bedside Glucose (Misc Panel) 166H 08/11/20 05:51: Immature Granulocyte % (Auto) 0.2, Neutrophils (%) (Auto) 46.9, Lymphocytes (%) (Auto) 23.0L, Monocytes (%) (Auto) 15.8H, Eosinophils (%) (Auto) 13.3H, Basophils (%) (Auto) 0.8, Neutrophils # (Auto) 3.9, Lymphocytes # (Auto) 1.9, Monocytes # (Auto) 1.3H, Eosinophils # (Auto) 1.1H, Basophils # (Auto) 0.1, Nucleated Red Blood Cells % (auto) 0.0, Anion Gap 1L, Glomerular Filtration Rate 33.6L, Calcium Level 8.9 08/11/20 11:22: Bedside Glucose (Misc Panel) 129H CBC/BMP Laboratory Tests 08/11/20 05:51 Microbiology Microbiology 08/08/20 Blood Culture - Preliminary, Resulted No Growth after 48 hours. All Specime... 08/08/20 Blood Culture - Preliminary, Resulted No Growth after 72 hours. All specime... 08/08/20 Respiratory Virus Panel (PCR) (CRISPIN) - Final, Complete Current Medications Current Medications Medications (Trade) Dose Ordered Sig/Abram Route PRN Reason Start Time Stop Time Status Last Admin Dose Admin Acetaminophen (Tylenol Tab) 650 mg Q4H PRN PO PAIN / FEVER 08/08/20 18:15 Albuterol/ Ipratropium (Combivent Respimat 100-20mcg) 4 puff Q20M INH 08/08/20 14:30 08/08/20 15:11 DC 08/08/20 14:45 Albuterol/ Ipratropium (Duoneb (Ipr 0.5mg/Alb 2.5mg)) 3 ml Q2HP PRN NEB SOB/WHEEZING 08/08/20 18:30 Albuterol/ Ipratropium (Duoneb (Ipr 0.5mg/Alb 2.5mg)) 3 ml RQID NEB 08/08/20 20:00 08/11/20 15:48 Amlodipine Besylate (Norvasc) 10 mg QHS PO 08/08/20 21:00 08/10/20 21:32 Aspirin (Ecotrin) 81 mg DAILY PO 08/09/20 09:00 08/11/20 08:14 Atorvastatin Calcium (Lipitor) 80 mg QHS PO 08/08/20 21:00 08/10/20 21:31 Ceftriaxone Sodium 2 gm/ Dextrose 50 ml @ 100 mls/hr Q12H IV 08/08/20 18:00 08/08/20 16:56 DC Clopidogrel Bisulfate (PLAVix) 75 mg DAILY PO 08/09/20 09:00 08/11/20 08:12 Dextrose (Dextrose 50%) 25 ml ASDIRECTED PRN IV SEE LABEL COMMENTS 08/08/20 16:30 Doxycycline Hyclate 100 mg/ Dextrose 100 ml @ 100 mls/hr Q12H IV 08/08/20 21:00 08/11/20 08:31 DC 08/11/20 08:12 Duloxetine HCl (Cymbalta) 60 mg QHS PO 08/08/20 21:00 08/10/20 21:31 EZETIMIBE (Zetia) 10 mg QHS PO 08/08/20 21:00 08/10/20 21:32 Furosemide (Lasix) 40 mg DAILY PO 08/09/20 09:00 Glucagon (Glucagon) 1 mg ASDIRECTED PRN SC SEE LABEL COMMENTS 08/08/20 16:30 Glucose (Glucose) 16 GM ASDIRECTED PRN PO SEE LABEL COMMENTS 08/08/20 16:30 Home Med (Med Rec Complete!) ASDIRECTED XX 08/08/20 15:15 08/08/20 15:09 DC Insulin Detemir (Levemir Insulin) 20 units QHS SC 08/08/20 21:00 Insulin Human Lispro (HumaLOG INSULIN) SEE PROTOCOL TABLE AC SC 08/08/20 17:30 08/11/20 12:26 Insulin Human Lispro (HumaLOG INSULIN) SEE PROTOCOL TABLE QHS SC 08/08/20 21:00 Levofloxacin (Levaquin) 250 mg DAILY@06 PO 08/12/20 06:00 Levothyroxine Sodium (Synthroid) 25 mcg DAILY@0600 PO 08/09/20 06:00 08/11/20 05:51 Meropenem 1 gm/IV Miscellaneous Supplies 50 ml @ 100 mls/hr Q8H IV 08/08/20 22:00 08/11/20 08:31 DC 08/11/20 05:52 Metoprolol Tartrate (Lopressor) 50 mg BID PO 08/08/20 21:00 08/10/20 21:32 Neomycin/ Polymyxin/ Dexamethasone (Maxitrol) APPLY TO RIGHT EYE QID OD 08/09/20 13:00 08/11/20 12:26 Oxymetazoline HCl (Afrin) 2 spray ASDIRECTED PRN NA SEE LABEL COMMENTS 08/11/20 10:30 Potassium Chloride (Micro-K Extencaps) 20 meq DAILY PO 08/09/20 09:00 08/10/20 08:32 DC 08/09/20 09:06 Tamsulosin HCl (Flomax) 0.4 mg DAILY PO 08/09/20 09:00 08/11/20 08:12 Tobramycin/ Dexamethasone (Tobradex Ophth Susp) 1 drop QID OD 08/09/20 13:00 Cancel Allergies Coded Allergies: Penicillins (Verified Allergy, Intermediate, swelling, 03/10/20) prednisone (Verified Adverse Reaction, Intermediate, tachycardia, 03/10/20) Dorothy Burrows MD Aug 11, 2020 16:47
[2020-08-11] MEDS: D5W/0.9% SODIUM CHLORIDE 1,000 ML IV SCH (18:11)
--- NOTE | 2020-08-11 21:13 | REPVR ---
PROCEDURE INFORMATION: Exam: XR Chest, 1 View Exam date and time: 08/11/2020 8:07 PM Age: 55 years old Clinical indication: Device placement; Ng tube; Additional info: Confirm ng tube placement TECHNIQUE: Imaging protocol: XR of the chest Views: 1 view. COMPARISON: CT Chest without contrast 08/08/2020 4:10 PM FINDINGS: Tubes, catheters and devices: Nasogastric tube extends into the stomach. The side hole is not well visualized but is likely in the distal esophagus. Lungs: Patchy bibasilar pulmonary opacities. Pleural space: Small right pleural effusion. No pneumothorax. Heart/Mediastinum: No cardiomegaly. Bones/joints: Changes of prior sternotomy are noted. IMPRESSION: 1. Nasogastric tube extends into the stomach but the side hole is likely in the distal esophagus and the tube could be advanced. . 2. Bibasilar airspace disease with small right pleural effusion. Electronically signed by: Tom Carpio On 08/11/2020 21:13:01 PM
[2020-08-11 22:00] VITALS: BP 135/63
[2020-08-11] MEDS: LEVEMIR (INSULIN DETEMIR) 1 UNITS/0.01ML SC SCH (23:30)
--- NOTE | 2020-08-11 23:37 | REPVR ---
PROCEDURE INFORMATION: Exam: XR Chest, 1 View Exam date and time: 08/11/2020 10:33 PM Age: 55 years old Clinical indication: Other: Ng tube; Additional info: Verify ng tube placement TECHNIQUE: Imaging protocol: XR of the chest Views: 1 view. COMPARISON: CR PORTABLE CHEST X-RAY 08/11/2020 8:02 PM FINDINGS: Tubes, catheters and devices: Nasogastric tube projects in the stomach. Lungs: Mild bilateral airspace opacities. Pleural space: Small right pleural effusion. No pneumothorax. Heart/Mediastinum: Stable mild cardiomegaly. Bones/joints: Unremarkable. IMPRESSION: 1. Nasogastric tube projects in the stomach. 2. Patchy bilateral pulmonary opacities and small right pleural effusion. Electronically signed by: Tom Carpio On 08/11/2020 23:36:54 PM
[2020-08-12] MEDS: MAXITROL OPHTH OINT 3.5 GM OD SCH ×5 (00:07→20:54)
[2020-08-12] MEDS: ATORVASTATIN 20 MG TAB PO SCH ×3 (00:07→20:55)
[2020-08-12] MEDS: DULoxetine 30 MG CAP (CYMBALTA) PO SCH ×2 (00:08→20:55)
[2020-08-12] MEDS: EZETIMIBE 10 MG TAB (ZETIA) PO SCH ×3 (00:08→20:58)
[2020-08-12] MEDS: METOPROLOL TART 50 MG TAB PO SCH ×4 (00:08→20:57)
[2020-08-12] MEDS: HumaLOG INSULIN (NovoLOG) PER UNIT SC SCH ×4 (00:09→17:52)
[2020-08-12] MEDS: amLODIPine 10 MG TAB PO SCH ×2 (00:09→20:58)
[2020-08-12 01:11] LABS: CK-MB VALUE MASS 1.7 NG/ML (<3.6); CPK CREATINE PHOSPHOKINASE 63 U/L (26-192); TROPONIN I < 0.02 NG/ML (< 0.10)
[2020-08-12] MEDS: LEVOTHYROXINE 25MCG TABLET (0.025MG) PO SCH (05:53)
[2020-08-12 06:00] VITALS: BP 147/78
[2020-08-12] MEDS ORDERED: LevoFLOXacin 250 MG TABLET PO SCH (06:00)
[2020-08-12 06:59] LABS: BASO # 0.1 10^3/uL (0.0-0.2); EOS % 12.3 % (0.0-3.0); HEMATOCRIT 28.1 % (36.0-47.0); HEMOGLOBIN 8.3 g/dl (12.0-15.5); LYMPH # 1.9 10^3/uL (1.5-5.0); LYMPH % 22.9 % (24.0-44.0); MEAN CORPUSCULAR HEMOGLOBIN 28.7 pg (27.0-33.0); MEAN CORPUSCULAR HGB CONC 29.5 g/dl (32.0-36.5); MEAN CORPUSCULAR VOLUME 97.2 fl (80.0-96.0); MONO # 1.1 10^3/uL (0.0-0.8); MONO % 13.2 % (0.0-5.0); NEUTROPHILS # 4.2 10^3/uL (1.5-8.5); NEUTROPHILS % 50.2 % (36.0-66.0); PLATELET COUNT, AUTOMATED 361 10^3/uL (150-450); RED BLOOD COUNT 2.89 10^6/uL (4.00-5.40); WHITE BLOOD COUNT 8.4 10^3/uL (4.0-10.0)
[2020-08-12 07:25] LABS: CALCIUM LEVEL 9.1 MG/DL (8.5-10.1); CREATININE FOR GFR 1.45 MG/DL (0.55-1.30); GLOMERULAR FILTRATION RATE 40.1 (>51); POTASSIUM SERUM 4.7 MEQ/L (3.5-5.1)
[2020-08-12] MEDS: D5W/0.9% SODIUM CHLORIDE 1,000 ML IV SCH ×2 (07:37→20:43)
[2020-08-12] MEDS: IPRATROPIUM 0.5MG/ALBUTEROL 2.5MG INH SOL UD 3ML (DUONEB) NEB SCH ×4 (09:34→18:05)
[2020-08-12] MEDS: ASPIRIN 81 MG CHEW TABLET NG SCH (11:13)
[2020-08-12] MEDS: TAMSULOSIN 0.4 MG CAP PO SCH (11:13)
[2020-08-12] MEDS: FUROSEMIDE 40 MG TAB PO SCH (11:14)
[2020-08-12] MEDS: LevoFLOXacin IV 250 MG in IV 1 EA IV SCH (12:32)
--- NOTE | 2020-08-12 13:11 | CR ---
CONSULTATION DATE OF CONSULT: 08/12/2020 REASON FOR CONSULT: PEG tube placement. HISTORY OF PRESENT ILLNESS: Patient is a 55-year-old female with a history of a CVA back in February. She has had problems with chronic cough since then. She presented to the Emergency Room on the with complaints of this productive cough. Initially thought to have pneumonia, but after work-up the last couple of days she appears to have some aspiration pneumonia as opposed to community acquired pneumonia. She also had a flexible endoscopy showing possible paralysis of her vocal cords and recommendation currently is to keep her completely n.p.o. due to her high risk of aspiration. Primary team has already discussed a possible feeding tube with her. Once feeding tube is in place ENT will be able to evaluate her vocal cords further. She understands and agrees. Her Plavix will be held for the next couple of days and we will plan for PEG tube placement first thing on Saturday morning. Currently she denies any complaints. She has no abdominal pain, no nausea or vomiting, no fevers or chills. She currently is n.p.o. They attempted NG placement last evening, but it was unsuccessful. They will keep her on D5 through her I.V. for now and she understands that and she is agreeable. She denies any previous abdominal surgeries to the upper abdomen. She has had a previous appendectomy and ovarian cyst removal, but no upper abdominal surgeries in the past. PAST MEDICAL HISTORY: 1. Systolic CHF. 2. Right orbital cellulitis. 3. Left vertebral artery thrombosis. 4. Asthma. 5. Diabetes. 6. Hypertension. 7. Dyslipidemia. 8. Coronary artery disease. 9. Hypothyroidism. 10. GERD. 11. Depression/anxiety. 12. Vitamin D deficiency. 13. Low back pain. 14. Bilateral knee pain. 15. CVA. PAST SURGICAL HISTORY: 1. Appendectomy. 2. Coronary stent placement. 3. Ovarian cyst resection. ALLERGIES: 1. PENICILLIN. 2. PREDNISONE. MEDICATIONS: Please see Med Rec. SOCIAL HISTORY: Denies drug, alcohol or tobacco abuse. FAMILY HISTORY: Noncontributory. REVIEW OF SYSTEMS: Pertinent positives and negatives as stated in the HPI. PHYSICAL EXAMINATION: General: A&O times 3, in no acute distress. Vital signs: Temperature 96.4, pulse 87, respirations 18, blood pressure 147/78, pulse ox 93% on nasal cannula. HEENT: Pupils equal, round and reactive to light and accommodation. Heart: S1 and S2 regular rate and rhythm. Lungs: Clear to auscultation bilaterally. Abdomen: Soft, nontender, nondistended. No scarring on the upper abdomen. Extremities: No clubbing, cyanosis or edema. LABORATORY DATA: White count 8.4, hemoglobin 8.3, platelets 361. Potassium 4.7, creatinine 1.45. IMAGING: Chest x-ray from yesterday shows patchy bilateral pulmonary opacities and small right pleural effusion. ASSESSMENT AND RECOMMENDATIONS: Patient is a 55-year-old female currently recuperating from aspiration pneumonia. She has got vocal cord paralysis and dysphagia secondary to that. Recommendation at this time is to proceed with PEG tube placement. I went over the risks and benefits of procedure with her. She understands and agrees. We will hold her Plavix and plan for scheduled procedure Saturday around 10:00 a.m. Once that is completed she can be resumed on her anticoagulation and also start on tube feeds 24 hours after the tube is in place. All of her questions are answered.
[2020-08-12 14:00] VITALS: BP 140/74
--- NOTE | 2020-08-12 15:42 | IPNPDOC ---
Date Seen The patient was seen on 08/12/20. Progress Note SUBJECTIVE: NG tube clogged last night, taken out. Patient refusing to replace with another. Plan is for feeding tube after weekend, keeping on D5W and converting meds that we can to IV. Denies incr cough, shortness of breath, chest pain, fevers, chills, n/v. OBJECTIVE: PHYSICAL EXAMINATION: VITAL SIGNS: see below GENERAL APPEARANCE: no distress. speaks in full sentences. no pallor or cyanosis appears older than her stated age. right eye ptosis. HEENT: no jvd. dry mm. no carotid bruits. no stridor, tracheal deviation, or nasal flaring. No thyromegaly or cervical LAD. no pharyngeal erythema. right eyelid swelling, slightly discolored, no conjunctivitis- patient states this is much improved from two weeks ago CARDIOVASCULAR:s1s2 RRR no m/r/g, nondisplaced pmi LUNGS: B/l fine crackles middle lobe and base. no wheezing ABDOMEN: soft nt nd +bs x 4quadrants no fluid wave. no hsm. no abdominal bruits EXTREMITIES: trace le edema b/l SKIN: no cyanosis. warm dry pink in color well perfused LABORATORY DATA: See below. IMAGING: Chest CT without IV contrast: Right middle lobe and right lower lobe infiltrates as described. Small right pleural effusions. Multiple right lung nodular densities as described. Multiple normal size mediastinal nodes. Cardiomegaly. Coronary artery vascular stents. MICROBIOLOGY: Please see below. 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 Pt had noticed increasing KAUR with ambulation, chronic cough productive of white sputum, without chills, h/a, n/v/abd pain, diarrhea, rhinorrhea, sore throat. COVID-19 negative in the ER. CXR: right PNA and small pleural effusion. She denied pnd, orthopnea, LE edema, or weight gain.Hospitalist was asked to admit for CAP. PLAN: Dysphagia with aspiration -FEES showed aspiration risk for all thickened foods also, vocal cord dysfunction. -Speech recommending NPO status until alternative feeding route decided -Will make NPO now, switch over meds to IV if possible -Keep on D5W over weekend, low rate -Refusing reattempt at placing NG tube -General surgery consulted and will place feeding tube after weekend. -Discussed case with Dr. Price who recommended us to consult ENT to evaluate vocal cord dysfunction after feeding tube placed Aspiration PNA RML/RLL -Supplemental oxygen to keep o2 sat>90%, currently 0.5 L NC- improving -WBC wnl -sputum cx unable to be obtained, BCX NG -nebs qid and prn q1hr, Acapella Q2H while awake -Levofloxacin Acute Hypoxic Respiratory Failure due to CAP -C/w treatment above Right eye swelling, ptosis -Improving -Patient has been seeing small animal caretaker as o/p, has been on o/p abx -C/w eye ointment as prescribed, on abx here CVA 2/2 to left vertebral artery thrombosis -Dysphagia reported by patient, swallowing eval above -PT/OT -Resume ASA, statin, plavix when able to take pills after feeding tube Systolic CHF, compensated -monitor fluid balance. strict i/o, weigh daily, 2liter fluid restriction -C/w home meds with feeding tube or NG tube when placed -lasix IV for now -Follows with shot dropper Dr. Nascimento DM2 -insulin sliding scale Q6H, levemir decreased while NPO and on D5W -NPO -hypoglycemic protocol HTN -controlled. -C/w home BB and CCB when able to take pills after feeding tube -For now c/w lasix Asthma, compensated -no wheezing on exam -qid nebs and i3ucsur for sob Dyslipidemia -resume home meds with feeding tube CAD w coronary stents -C/w home meds. no acute ischemic symptoms. - cardiac markers neg -Dr. Nascimento, shot dropper -C/w BB, CCB, ASA, Statin, plavix when able to take pills after feeding tube Hypothyroidism -C/w synthroid with feeding tube GERD -asymptomatic Anxiety/Depression -no c/o. -C/w home med when able to take pills after feeding tube Vitamin D deficiency -outpt fu DVT prophylaxis -lovenox Code status: full code. DISPOSITION: General surgery following. Will need ENT consult after feeding tube placement. Plan is still home when medically improved. VS, I&O, 24H, Fishbone Vital Signs/I&O Vital Signs Date Time Temp Pulse Resp B/P (MAP) Pulse Ox O2 Delivery O2 Flow Rate FiO2 08/12/20 14:00 98.2 93 18 140/74 (96) 94 Nasal Cannula 0.5 I&O- Last 24 Hours up to 6 AM 08/12/20 06:00 Intake Total 1170 ml Output Total 850 ml Balance 320 ml Laboratory Data 24H LABS Laboratory Tests 2 08/11/20 16:57: Bedside Glucose (Misc Panel) 123H 08/11/20 23:30: Bedside Glucose (Misc Panel) 132H 08/12/20 00:00: Total Creatine Kinase 63, Creatine Kinase MB 1.7, Creatine Kinase MB Relative Index 2.70, Troponin I < 0.02 08/12/20 06:06: Bedside Glucose (Misc Panel) 129H 08/12/20 06:09: Immature Granulocyte % (Auto) 0.4, Neutrophils (%) (Auto) 50.2, Lymphocytes (%) (Auto) 22.9L, Monocytes (%) (Auto) 13.2H, Eosinophils (%) (Auto) 12.3H, Basophils (%) (Auto) 1.0, Neutrophils # (Auto) 4.2, Lymphocytes # (Auto) 1.9, Monocytes # (Auto) 1.1H, Eosinophils # (Auto) 1.0H, Basophils # (Auto) 0.1, Nucleated Red Blood Cells % (auto) 0.0, Anion Gap 4L, Glomerular Filtration Rate 40.1L, Calcium Level 9.1 08/12/20 11:46: Bedside Glucose (Misc Panel) 135H CBC/BMP Laboratory Tests 08/12/20 06:09 Microbiology Microbiology 08/08/20 Blood Culture - Preliminary, Resulted No Growth after 72 hours. All specime... 08/08/20 Blood Culture - Preliminary, Resulted No Growth after 72 hours. All specime... 08/08/20 Respiratory Virus Panel (PCR) (CRISPIN) - Final, Complete Current Medications Current Medications Medications (Trade) Dose Ordered Sig/Abram Route PRN Reason Start Time Stop Time Status Last Admin Dose Admin Acetaminophen (Tylenol Tab) 650 mg Q4H PRN PO PAIN / FEVER 08/08/20 18:15 Albuterol/ Ipratropium (Combivent Respimat 100-20mcg) 4 puff Q20M INH 08/08/20 14:30 08/08/20 15:11 DC 08/08/20 14:45 Albuterol/ Ipratropium (Duoneb (Ipr 0.5mg/Alb 2.5mg)) 3 ml Q2HP PRN NEB SOB/WHEEZING 08/08/20 18:30 Albuterol/ Ipratropium (Duoneb (Ipr 0.5mg/Alb 2.5mg)) 3 ml RQID NEB 08/08/20 20:00 08/12/20 13:17 Amlodipine Besylate (Norvasc) 10 mg QHS PO 08/08/20 21:00 08/12/20 00:09 Aspirin (Aspirin Chewable) 81 mg DAILY NG 08/12/20 09:00 Aspirin (Ecotrin) 81 mg DAILY PO 08/09/20 09:00 08/11/20 22:38 DC 08/11/20 08:14 Atorvastatin Calcium (Lipitor) 80 mg QHS PO 08/08/20 21:00 08/10/20 21:31 Ceftriaxone Sodium 2 gm/ Dextrose 50 ml @ 100 mls/hr Q12H IV 08/08/20 18:00 08/08/20 16:56 DC Clopidogrel Bisulfate (PLAVix) 75 mg DAILY PO 08/09/20 09:00 08/11/20 16:52 DC 08/11/20 08:12 Dextrose (Dextrose 50%) 25 ml ASDIRECTED PRN IV SEE LABEL COMMENTS 08/08/20 16:30 Dextrose/Sodium Chloride 1,000 ml @ 75 mls/hr [id number] IV 08/11/20 17:00 08/12/20 07:37 Doxycycline Hyclate 100 mg/ Dextrose 100 ml @ 100 mls/hr Q12H IV 08/08/20 21:00 08/11/20 08:31 DC 08/11/20 08:12 Duloxetine HCl (Cymbalta) 60 mg QHS PO 08/08/20 21:00 08/10/20 21:31 EZETIMIBE (Zetia) 10 mg QHS PO 08/08/20 21:00 08/10/20 21:32 Furosemide (Lasix) 40 mg DAILY PO 08/09/20 09:00 Glucagon (Glucagon) 1 mg ASDIRECTED PRN SC SEE LABEL COMMENTS 08/08/20 16:30 Glucose (Glucose) 16 GM ASDIRECTED PRN PO SEE LABEL COMMENTS 08/08/20 16:30 Home Med (Med Rec Complete!) ASDIRECTED XX 08/08/20 15:15 08/08/20 15:09 DC Insulin Detemir (Levemir Insulin) 10 units QHS SC 08/11/20 21:00 Insulin Detemir (Levemir Insulin) 20 units QHS SC 08/08/20 21:00 08/11/20 17:03 DC Insulin Human Lispro (HumaLOG INSULIN) SEE PROTOCOL TABLE AC CO 08/08/20 17:30 08/11/20 17:02 DC 08/11/20 12:26 Insulin Human Lispro (HumaLOG INSULIN) SEE PROTOCOL TABLE Q6H CO 08/11/20 18:00 08/12/20 00:09 Insulin Human Lispro (HumaLOG INSULIN) SEE PROTOCOL TABLE QHS CO 08/08/20 21:00 08/11/20 17:02 DC Levofloxacin (Levaquin) 250 mg DAILY@06 PO 08/12/20 06:00 08/11/20 17:02 DC Levofloxacin 250 mg/IV Miscellaneous Supplies 50 ml @ 50 mls/hr Q24H IV 08/12/20 13:00 08/12/20 12:32 Levothyroxine Sodium (Synthroid) 25 mcg DAILY@0600 PO 08/09/20 06:00 08/11/20 05:51 Meropenem 1 gm/IV Miscellaneous Supplies 50 ml @ 100 mls/hr Q8H IV 08/08/20 22:00 08/11/20 08:31 DC 08/11/20 05:52 Metoprolol Tartrate (Lopressor) 50 mg BID PO 08/08/20 21:00 08/10/20 21:32 Neomycin/ Polymyxin/ Dexamethasone (Maxitrol) APPLY TO RIGHT EYE QID OD 08/09/20 13:00 08/12/20 12:30 Oxymetazoline HCl (Afrin) 2 spray ASDIRECTED PRN NA SEE LABEL COMMENTS 08/11/20 10:30 08/12/20 04:40 DC 08/12/20 04:40 Potassium Chloride (Micro-K Extencaps) 20 meq DAILY PO 08/09/20 09:00 08/10/20 08:32 DC 08/09/20 09:06 Tamsulosin HCl (Flomax) 0.4 mg DAILY PO 08/09/20 09:00 08/11/20 08:12 Tobramycin/ Dexamethasone (Tobradex Ophth Susp) 1 drop QID OD 08/09/20 13:00 Cancel Allergies Coded Allergies: Penicillins (Verified Allergy, Intermediate, swelling, 03/10/20) prednisone (Verified Adverse Reaction, Intermediate, tachycardia, 03/10/20) Dorothy Burrows MD Aug 12, 2020 15:42
--- NOTE | 2020-08-12 18:42 | ECGEPIP ---
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 Order Number: [id number] Reading MD: Willian Eagle Measurements Intervals [place] Rate: 90 P: 28 OR: 172 QRS: -15 QRSD: 99 T: 118 QT: 366 QTc: 449 Interpretive Statements SINUS RHYTHM Poor precordial R wave progression Non specific ST/T wave abnormalities Faster rate but otherwise unchanged from 08/08/20 Electronically Signed on 08-12-2020 18:41:42 EST by Willian Eagle
[2020-08-12] MEDS: LEVEMIR (INSULIN DETEMIR) 1 UNITS/0.01ML SC SCH (20:58)
[2020-08-12 22:00] VITALS: BP 139/74
[2020-08-13 05:13] LABS: BASO # 0.1 10^3/uL (0.0-0.2); BASO % 1.2 % (0.0-1.0); EOS # 0.8 10^3/uL (0.0-0.5); EOS % 10.3 % (0.0-3.0); HEMATOCRIT 29.3 % (36.0-47.0); HEMOGLOBIN 8.6 g/dl (12.0-15.5); LYMPH # 1.9 10^3/uL (1.5-5.0); LYMPH % 25.2 % (24.0-44.0); MEAN CORPUSCULAR HEMOGLOBIN 28.5 pg (27.0-33.0); MEAN CORPUSCULAR HGB CONC 29.4 g/dl (32.0-36.5); MONO # 1.1 10^3/uL (0.0-0.8); MONO % 14.2 % (0.0-5.0); NEUTROPHILS # 3.7 10^3/uL (1.5-8.5); PLATELET COUNT, AUTOMATED 333 10^3/uL (150-450); RED BLOOD COUNT 3.02 10^6/uL (4.00-5.40); WHITE BLOOD COUNT 7.6 10^3/uL (4.0-10.0)
[2020-08-13 05:38] LABS: CALCIUM LEVEL 8.4 MG/DL (8.5-10.1); CREATININE FOR GFR 1.09 MG/DL (0.55-1.30); GLOMERULAR FILTRATION RATE 55.7 (>51); POTASSIUM SERUM 4.8 MEQ/L (3.5-5.1)
[2020-08-13] MEDS: LEVOTHYROXINE 25MCG TABLET (0.025MG) PO SCH (05:44)
[2020-08-13] MEDS: HumaLOG INSULIN (NovoLOG) PER UNIT SC SCH ×4 (05:44→17:46)
[2020-08-13 06:00] VITALS: BP 135/73
[2020-08-13] MEDS: IPRATROPIUM 0.5MG/ALBUTEROL 2.5MG INH SOL UD 3ML (DUONEB) NEB SCH ×4 (08:55→18:11)
[2020-08-13] MEDS: TAMSULOSIN 0.4 MG CAP PO SCH (09:00)
[2020-08-13] MEDS: METOPROLOL TART 50 MG TAB PO SCH ×2 (09:00→20:54)
[2020-08-13] MEDS: ASPIRIN 81 MG CHEW TABLET NG SCH (09:00)
[2020-08-13] MEDS: D5W/0.9% SODIUM CHLORIDE 1,000 ML IV SCH (09:38)
[2020-08-13] MEDS: FUROSEMIDE 40MG/4ML VIAL (J1940) IV SCH (09:41)
[2020-08-13] MEDS: MAXITROL OPHTH OINT 3.5 GM OD SCH ×4 (09:42→20:43)
[2020-08-13] MEDS: LevoFLOXacin IV 250 MG in IV 1 EA IV SCH (13:58)
[2020-08-13 14:00] VITALS: BP 139/72
--- NOTE | 2020-08-13 14:56 | IPNPDOC ---
Date Seen The patient was seen on 08/13/20. Progress Note SUBJECTIVE: No events overnight. Cr wnl this AM, still on 2 L NC. Denies incr cough, shortness of breath, chest pain, fevers, chills, n/v. OBJECTIVE: PHYSICAL EXAMINATION: VITAL SIGNS: see below GENERAL APPEARANCE: no distress. speaks in full sentences. no pallor or cyanosis appears older than her stated age. right eye ptosis. HEENT: no jvd. dry mm. no carotid bruits. no stridor, tracheal deviation, or nasal flaring. No thyromegaly or cervical LAD. no pharyngeal erythema. right eyelid swelling, slightly discolored, no conjunctivitis- patient states this is much improved from two weeks ago CARDIOVASCULAR:s1s2 RRR no m/r/g, nondisplaced pmi LUNGS: B/l fine crackles middle lobe and base- improving. no wheezing ABDOMEN: soft nt nd +bs x 4quadrants no fluid wave. no hsm. no abdominal bruits EXTREMITIES: trace le edema b/l SKIN: no cyanosis. warm dry pink in color well perfused LABORATORY DATA: See below. IMAGING: Chest CT without IV contrast: Right middle lobe and right lower lobe infiltrates as described. Small right pleural effusions. Multiple right lung nodular densities as described. Multiple normal size mediastinal nodes. Cardiomegaly. Coronary artery vascular stents. MICROBIOLOGY: Please see below. 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 Pt had noticed increasing KAUR with ambulation, chronic cough productive of white sputum, without chills, h/a, n/v/abd pain, diarrhea, rhinorrhea, sore throat. COVID-19 negative in the ER. CXR: right PNA and small pleural effusion. She denied pnd, orthopnea, LE edema, or weight gain.Hospitalist was asked to admit for CAP. PLAN: Dysphagia with aspiration -FEES showed aspiration risk for all thickened foods also, vocal cord dys function. -Speech recommending NPO status until alternative feeding route decided -NPO -Keep on D5W over weekend, low rate -Refusing reattempt at placing NG tube -General surgery consulted and will place feeding tube 08/15/20 -Discussed case with Dr. Price who recommended to consult ENT to evaluate vocal cord dysfunction after feeding tube placed Aspiration PNA RML/RLL -Supplemental oxygen to keep o2 sat>90%, currently 0.5-2 L NC -WBC wnl -sputum cx unable to be obtained, BCX NG -nebs qid and prn q1hr, Acapella Q2H while awake -Day 02/02 for abx treatment. Switched to levofloxacin 08/12/20 Acute Hypoxic Respiratory Failure due to CAP -C/w treatment above Right eye swelling, ptosis -Patient has been seeing business account leader as o/p, has been on o/p abx -C/w eye ointment as prescribed, on abx here CVA 2/2 to left vertebral artery thrombosis -Dysphagia reported by patient, swallowing eval above -PT/OT: C/w home with 18/03 care as she has now -Resume ASA, statin, plavix when able to take pills after feeding tube Systolic CHF, compensated -monitor fluid balance. strict i/o, weigh daily, 2liter fluid restriction -C/w home meds with feeding tube or NG tube when placed -lasix IV for now -Follows with broomcorn seeder Dr. Nascimento DM2 -insulin sliding scale Q6H, levemir decreased while NPO and on D5W -NPO -hypoglycemic protocol HTN -controlled. -C/w home BB and CCB when able to take pills after feeding tube -For now c/w lasix Asthma, compensated -no wheezing on exam -qid nebs and b6vwlgs for sob Dyslipidemia -resume home meds with feeding tube CAD w coronary stents -C/w home meds. no acute ischemic symptoms. - cardiac markers neg -Dr. Nascimento, broomcorn seeder -C/w BB, CCB, ASA, Statin, plavix when able to take pills after feeding tube Hypothyroidism -C/w synthroid with feeding tube GERD -asymptomatic Anxiety/Depression -no c/o. -C/w home med when able to take pills after feeding tube Vitamin D deficiency -outpt fu DVT prophylaxis -lovenox Code status: full code. DISPOSITION: General surgery following, feeding tube placement scheduled for 07/27/20. Will need ENT consult after feeding tube placement. Plan is still home with 18/03 care (already has) when medically improved. VS, I&O, 24H, Fishbone Vital Signs/I&O Vital Signs Date Time Temp Pulse Resp B/P (MAP) Pulse Ox O2 Delivery O2 Flow Rate FiO2 08/13/20 14:00 97.8 97 18 139/72 (94) 98 Nasal Cannula 2.0 I&O- Last 24 Hours up to 6 AM 08/13/20 06:00 Intake Total 2405 ml Output Total 1600 ml Balance 805 ml Laboratory Data 24H LABS Laboratory Tests 2 08/12/20 17:34: Bedside Glucose (Misc Panel) 129H 08/13/20 00:04: Bedside Glucose (Misc Panel) 121H 08/13/20 04:54: Immature Granulocyte % (Auto) 0.1, Neutrophils (%) (Auto) 49.0, Lymphocytes (%) (Auto) 25.2, Monocytes (%) (Auto) 14.2H, Eosinophils (%) (Auto) 10.3H, Basophils (%) (Auto) 1.2H, Neutrophils # (Auto) 3.7, Lymphocytes # (Auto) 1.9, Monocytes # (Auto) 1.1H, Eosinophils # (Auto) 0.8H, Basophils # (Auto) 0.1, Nucleated Red Blood Cells % (auto) 0.0, Anion Gap 5L, Glomerular Filtration Rate 55.7, Calcium Level 8.4L 08/13/20 06:26: Bedside Glucose (Misc Panel) 118H 08/13/20 11:59: Bedside Glucose (Misc Panel) 121H CBC/BMP Laboratory Tests 08/13/20 04:54 Microbiology Microbiology 08/08/20 Blood Culture - Preliminary, Resulted No Growth after 72 hours. All specime... 08/08/20 Blood Culture - Preliminary, Resulted No Growth after 72 hours. All specime... 08/08/20 Respiratory Virus Panel (PCR) (CRISPIN) - Final, Complete Current Medications Current Medications Medications (Trade) Dose Ordered Sig/Abram Route PRN Reason Start Time Stop Time Status Last Admin Dose Admin Acetaminophen (Tylenol Tab) 650 mg Q4H PRN PO PAIN / FEVER 08/08/20 18:15 Albuterol/ Ipratropium (Combivent Respimat 100-20mcg) 4 puff Q20M INH 08/08/20 14:30 08/08/20 15:11 DC 08/08/20 14:45 Albuterol/ Ipratropium (Duoneb (Ipr 0.5mg/Alb 2.5mg)) 3 ml Q2HP PRN NEB SOB/WHEEZING 08/08/20 18:30 Albuterol/ Ipratropium (Duoneb (Ipr 0.5mg/Alb 2.5mg)) 3 ml RQID NEB 08/08/20 20:00 08/13/20 11:32 Amlodipine Besylate (Norvasc) 10 mg QHS PO 08/08/20 21:00 08/12/20 00:09 Aspirin (Aspirin Chewable) 81 mg DAILY NG 08/12/20 09:00 Aspirin (Ecotrin) 81 mg DAILY PO 08/09/20 09:00 08/11/20 22:38 DC 08/11/20 08:14 Atorvastatin Calcium (Lipitor) 80 mg QHS PO 08/08/20 21:00 08/10/20 21:31 Ceftriaxone Sodium 2 gm/ Dextrose 50 ml @ 100 mls/hr Q12H IV 08/08/20 18:00 08/08/20 16:56 DC Clopidogrel Bisulfate (PLAVix) 75 mg DAILY PO 08/09/20 09:00 08/11/20 16:52 DC 08/11/20 08:12 Dextrose (Dextrose 50%) 25 ml ASDIRECTED PRN IV SEE LABEL COMMENTS 08/08/20 16:30 Dextrose/Sodium Chloride 1,000 ml @ 75 mls/hr [id number] IV 08/11/20 17:00 08/13/20 09:38 Doxycycline Hyclate 100 mg/ Dextrose 100 ml @ 100 mls/hr Q12H IV 08/08/20 21:00 08/11/20 08:31 DC 08/11/20 08:12 Duloxetine HCl (Cymbalta) 60 mg QHS PO 08/08/20 21:00 08/10/20 21:31 EZETIMIBE (Zetia) 10 mg QHS PO 08/08/20 21:00 08/10/20 21:32 Furosemide (LASIX injection) 40 mg DAILY IV 08/13/20 09:00 08/13/20 09:41 Furosemide (Lasix) 40 mg DAILY PO 08/09/20 09:00 08/12/20 15:43 DC Glucagon (Glucagon) 1 mg ASDIRECTED PRN SC SEE LABEL COMMENTS 08/08/20 16:30 Glucose (Glucose) 16 GM ASDIRECTED PRN PO SEE LABEL COMMENTS 08/08/20 16:30 Home Med (Med Rec Complete!) ASDIRECTED XX 08/08/20 15:15 08/08/20 15:09 DC Insulin Detemir (Levemir Insulin) 10 units QHS SC 08/11/20 21:00 Insulin Detemir (Levemir Insulin) 20 units QHS SC 08/08/20 21:00 08/11/20 17:03 DC Insulin Human Lispro (HumaLOG INSULIN) SEE PROTOCOL TABLE AC SC 08/08/20 17:30 08/11/20 17:02 DC 08/11/20 12:26 Insulin Human Lispro (HumaLOG INSULIN) SEE PROTOCOL TABLE Q6H SC 08/11/20 18:00 08/12/20 00:09 Insulin Human Lispro (HumaLOG INSULIN) SEE PROTOCOL TABLE QHS SC 08/08/20 21:00 08/11/20 17:02 DC Levofloxacin (Levaquin) 250 mg DAILY@06 PO 08/12/20 06:00 08/11/20 17:02 DC Levofloxacin 250 mg/IV Miscellaneous Supplies 50 ml @ 50 mls/hr Q24H IV 08/12/20 13:00 08/13/20 13:58 Levothyroxine Sodium (Synthroid) 25 mcg DAILY@0600 PO 08/09/20 06:00 08/11/20 05:51 Meropenem 1 gm/IV Miscellaneous Supplies 50 ml @ 100 mls/hr Q8H IV 08/08/20 22:00 08/11/20 08:31 DC 08/11/20 05:52 Metoprolol Tartrate (Lopressor) 50 mg BID PO 08/08/20 21:00 08/10/20 21:32 Neomycin/ Polymyxin/ Dexamethasone (Maxitrol) APPLY TO RIGHT EYE QID OD 08/09/20 13:00 08/13/20 13:58 Oxymetazoline HCl (Afrin) 2 spray ASDIRECTED PRN NA SEE LABEL COMMENTS 08/11/20 10:30 08/12/20 04:40 DC 08/12/20 04:40 Potassium Chloride (Micro-K Extencaps) 20 meq DAILY PO 08/09/20 09:00 08/10/20 08:32 DC 08/09/20 09:06 Tamsulosin HCl (Flomax) 0.4 mg DAILY PO 08/09/20 09:00 08/11/20 08:12 Tobramycin/ Dexamethasone (Tobradex Ophth Susp) 1 drop QID OD 08/09/20 13:00 Cancel Allergies Coded Allergies: Penicillins (Verified Allergy, Intermediate, swelling, 03/10/20) prednisone (Verified Adverse Reaction, Intermediate, tachycardia, 03/10/20) Dorothy Burrows MD Aug 13, 2020 14:56
[2020-08-13] MEDS: DULoxetine 30 MG CAP (CYMBALTA) PO SCH (20:54)
[2020-08-13] MEDS: ATORVASTATIN 20 MG TAB PO SCH (20:54)
[2020-08-13] MEDS: EZETIMIBE 10 MG TAB (ZETIA) PO SCH (20:55)
[2020-08-13] MEDS: amLODIPine 10 MG TAB PO SCH (20:55)
[2020-08-13] MEDS: LEVEMIR (INSULIN DETEMIR) 1 UNITS/0.01ML SC SCH (21:30)
[2020-08-13 22:00] VITALS: BP 144/76
[2020-08-14] MEDS: D5W/0.9% SODIUM CHLORIDE 1,000 ML IV SCH ×3 (00:29→21:02)
[2020-08-14 06:00] VITALS: BP 150/82
[2020-08-14] MEDS: HumaLOG INSULIN (NovoLOG) PER UNIT SC SCH ×4 (06:00→18:00)
[2020-08-14] MEDS: LEVOTHYROXINE 25MCG TABLET (0.025MG) PO SCH (06:00)
[2020-08-14 06:22] LABS: BASO # 0.1 10^3/uL (0.0-0.2); BASO % 0.7 % (0.0-1.0); EOS # 0.7 10^3/uL (0.0-0.5); EOS % 7.5 % (0.0-3.0); HEMATOCRIT 30.1 % (36.0-47.0); HEMOGLOBIN 8.8 g/dl (12.0-15.5); LYMPH # 1.7 10^3/uL (1.5-5.0); LYMPH % 19.6 % (24.0-44.0); MEAN CORPUSCULAR HEMOGLOBIN 28.3 pg (27.0-33.0); MEAN CORPUSCULAR HGB CONC 29.2 g/dl (32.0-36.5); MEAN CORPUSCULAR VOLUME 96.8 fl (80.0-96.0); MONO % 11.1 % (0.0-5.0); NEUTROPHILS # 5.3 10^3/uL (1.5-8.5); NEUTROPHILS % 60.9 % (36.0-66.0); PLATELET COUNT, AUTOMATED 339 10^3/uL (150-450); RED BLOOD COUNT 3.11 10^6/uL (4.00-5.40); WHITE BLOOD COUNT 8.6 10^3/uL (4.0-10.0)
[2020-08-14 06:52] LABS: BLOOD UREA NITROGEN 12 MG/DL (7-18); CALCIUM LEVEL 8.6 MG/DL (8.5-10.1); CARBON DIOXIDE LEVEL 28 MEQ/L (21-32); CHLORIDE LEVEL 109 MEQ/L (98-107); CREATININE FOR GFR 0.99 MG/DL (0.55-1.30); GLOMERULAR FILTRATION RATE > 60.0 (>51); GLUCOSE, FASTING 116 MG/DL (70-100); IRON (FE) 35 UG/DL (50-170); PERCENT SATURATION 17.8 % (13.2-45.0); POTASSIUM SERUM 4.4 MEQ/L (3.5-5.1); SODIUM LEVEL 142 MEQ/L (136-145); TOTAL IRON BINDING CAPACITY 197 UG/DL (250-450)
[2020-08-14] MEDS: IPRATROPIUM 0.5MG/ALBUTEROL 2.5MG INH SOL UD 3ML (DUONEB) NEB SCH ×4 (07:20→18:17)
[2020-08-14] MEDS: ASPIRIN 81 MG CHEW TABLET NG SCH (09:00)
[2020-08-14] MEDS: METOPROLOL TART 50 MG TAB PO SCH ×2 (09:00→21:00)
[2020-08-14] MEDS: TAMSULOSIN 0.4 MG CAP PO SCH (09:00)
[2020-08-14] MEDS: FERROUS SULFATE 325MG TAB PO SCH ×2 (09:00→21:00)
[2020-08-14] MEDS: FUROSEMIDE 40MG/4ML VIAL (J1940) IV SCH (09:39)
[2020-08-14] MEDS: MAXITROL OPHTH OINT 3.5 GM OD SCH ×4 (09:39→21:03)
[2020-08-14] MEDS: LevoFLOXacin IV 250 MG in IV 1 EA IV SCH (12:42)
[2020-08-14 14:00] VITALS: BP 157/80
--- NOTE | 2020-08-14 15:37 | IPNPDOC ---
Date Seen The patient was seen on 08/14/20. Progress Note SUBJECTIVE: No events overnight. Cr wnl this AM, on 1 L NC. OR in the AM for feeding tube. Denies incr cough, shortness of breath, chest pain, fevers, chills, n/v. OBJECTIVE: PHYSICAL EXAMINATION: VITAL SIGNS: see below GENERAL APPEARANCE: no distress. speaks in full sentences. no pallor or cyanosis appears older than her stated age. right eye ptosis. HEENT: no jvd. dry mm. no carotid bruits. no stridor, tracheal deviation, or nasal flaring. No thyromegaly or cervical LAD. no pharyngeal erythema. right eyelid swelling, slightly discolored, no conjunctivitis- patient states this is much improved from two weeks ago CARDIOVASCULAR:s1s2 RRR no m/r/g, nondisplaced pmi LUNGS: B/l fine crackles middle lobe and base- improving. no wheezing ABDOMEN: soft nt nd +bs x 4quadrants no fluid wave. no hsm. no abdominal bruits EXTREMITIES: trace le edema b/l SKIN: no cyanosis. warm dry pink in color well perfused LABORATORY DATA: See below. IMAGING: Chest CT without IV contrast: Right middle lobe and right lower lobe infiltrates as described. Small right pleural effusions. Multiple right lung nodular densities as described. Multiple normal size mediastinal nodes. Cardiomegaly. Coronary artery vascular stents. MICROBIOLOGY: Please see below. 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 Pt had noticed increasing KAUR with ambulation, chronic cough productive of white sputum, without chills, h/a, n/v/abd pain, diarrhea, rhinorrhea, sore throat. COVID-19 negative in the ER. CXR: right PNA and small pleural effusion. She denied pnd, orthopnea, LE edema, or weight gain.Hospitalist was asked to admit for CAP. PLAN: Dysphagia with aspiration -FEES showed aspiration risk for all thickened foods also, vocal cord dysfunction. -Speech recommending NPO status until alternative feeding route decided -NPO -Keep on D5W until feeding tube placed -General surgery consulted and will place feeding tube 08/15/20 -Discussed case with Dr. Price who recommended to consult ENT to evaluate vocal cord dysfunction after feeding tube placed Aspiration PNA RML/RLL -Supplemental oxygen to keep o2 sat>90%, currently 0.5-2 L NC -WBC wnl -sputum cx unable to be obtained, BCX NG -nebs qid and prn q1hr, Acapella Q2H while awake -Day 03/04 for abx treatment. Switched to levofloxacin 08/12/20 -Patient is not on home O2 so will need walking test with and without O2 24 hours after feeding tube placed to see if patient will need home O2. Acute Hypoxic Respiratory Failure due to CAP -C/w treatment above Right eye swelling, ptosis -Patient has been seeing regional tanker truck driver as o/p, has been on o/p abx -C/w eye ointment as prescribed, on abx here CVA 2/2 to left vertebral artery thrombosis -Dysphagia reported by patient, swallowing eval above -PT/OT: C/w home with 18/03 care as she has now -Resume ASA, statin, plavix when able to take pills after feeding tube Systolic CHF, compensated -monitor fluid balance. strict i/o, weigh daily, 2liter fluid restriction -C/w home meds with feeding tube or NG tube when placed -lasix IV for now -Follows with brand sales manager Dr. Nascimento DM2 -BS stable with D5W -insulin sliding scale Q6H, levemir decreased while NPO and on D5W -NPO -hypoglycemic protocol HTN -controlled. -C/w home BB and CCB when able to take pills after feeding tube -For now c/w lasix Asthma, compensated -no wheezing on exam -qid nebs and s1alidr for sob Dyslipidemia -resume home meds with feeding tube CAD w coronary stents -C/w home meds. no acute ischemic symptoms. -Cardiac markers neg -Dr. Nascimento, brand sales manager -C/w BB, CCB, ASA, Statin, plavix when able to take pills after feeding tube Hypothyroidism -C/w synthroid with feeding tube GERD -asymptomatic Anxiety/Depression -no c/o. -C/w home med when able to take pills after feeding tube Vitamin D deficiency -outpt fu DVT prophylaxis -lovenox DISPOSITION: General surgery following, feeding tube placement scheduled for 08/15/20. Will need ENT consult after feeding tube placement. Plan is still home with 24/ care (already has) when medically improved. Will need testing to see if she needs home O2 prior to discharge. VS, I&O, 24H, Fishbone Vital Signs/I&O Vital Signs Date Time Temp Pulse Resp B/P (MAP) Pulse Ox O2 Delivery O2 Flow Rate FiO2 08/14/20 14:00 97.9 96 17 157/80 (105) 96 Nasal Cannula 1.0 I&O- Last 24 Hours up to 6 AM 08/14/20 06:00 Intake Total 2610 ml Output Total 2550 ml Balance 60 ml Laboratory Data 24H LABS Laboratory Tests 2 08/13/20 17:07: Bedside Glucose (Misc Panel) 110H 08/14/20 00:02: Bedside Glucose (Misc Panel) 102 08/14/20 05:58: Bedside Glucose (Misc Panel) 116H 08/14/20 06:06: Immature Granulocyte % (Auto) 0.2, Neutrophils (%) (Auto) 60.9, Lymphocytes (%) (Auto) 19.6L, Monocytes (%) (Auto) 11.1H, Eosinophils (%) (Auto) 7.5H, Basophils (%) (Auto) 0.7, Neutrophils # (Auto) 5.3, Lymphocytes # (Auto) 1.7, Monocytes # (Auto) 1.0H, Eosinophils # (Auto) 0.7H, Basophils # (Auto) 0.1, Nucleated Red Blood Cells % (auto) 0.5H, Anion Gap 5L, Glomerular Filtration Rate > 60.0, Calcium Level 8.6, Iron Level 35L, Total Iron Binding Capacity 197L, Transferrin % Saturation 17.8 08/14/20 11:40: Bedside Glucose (Misc Panel) 123H CBC/BMP Laboratory Tests 08/14/20 06:06 Microbiology Microbiology 08/08/20 Blood Culture - Final, Complete NO GROWTH AFTER 5 DAYS 08/08/20 Blood Culture - Final, Complete NO GROWTH AFTER 5 DAYS 08/08/20 Respiratory Virus Panel (PCR) (CRISPIN) - Final, Complete Current Medications Current Medications Medications (Trade) Dose Ordered Sig/Abram Route PRN Reason Start Time Stop Time Status Last Admin Dose Admin Acetaminophen (Tylenol Tab) 650 mg Q4H PRN PO PAIN / FEVER 08/08/20 18:15 Albuterol/ Ipratropium (Combivent Respimat 100-20mcg) 4 puff Q20M INH 08/08/20 14:30 08/08/20 15:11 DC 08/08/20 14:45 Albuterol/ Ipratropium (Duoneb (Ipr 0.5mg/Alb 2.5mg)) 3 ml Q2HP PRN NEB SOB/WHEEZING 08/08/20 18:30 Albuterol/ Ipratropium (Duoneb (Ipr 0.5mg/Alb 2.5mg)) 3 ml RQID NEB 08/08/20 20:00 08/13/20 11:32 Amlodipine Besylate (Norvasc) 10 mg QHS PO 08/08/20 21:00 08/12/20 00:09 Aspirin (Aspirin Chewable) 81 mg DAILY NG 08/12/20 09:00 Aspirin (Ecotrin) 81 mg DAILY PO 08/09/20 09:00 08/11/20 22:38 DC 08/11/20 08:14 Atorvastatin Calcium (Lipitor) 80 mg QHS PO 08/08/20 21:00 08/10/20 21:31 Ceftriaxone Sodium 2 gm/ Dextrose 50 ml @ 100 mls/hr Q12H IV 08/08/20 18:00 08/08/20 16:56 DC Clopidogrel Bisulfate (PLAVix) 75 mg DAILY PO 08/09/20 09:00 08/11/20 16:52 DC 08/11/20 08:12 Dextrose (Dextrose 50%) 25 ml ASDIRECTED PRN IV SEE LABEL COMMENTS 08/08/20 16:30 Dextrose/Sodium Chloride 1,000 ml @ 75 mls/hr [id number] IV 08/11/20 17:00 08/14/20 12:42 Doxycycline Hyclate 100 mg/ Dextrose 100 ml @ 100 mls/hr Q12H IV 08/08/20 21:00 08/11/20 08:31 DC 08/11/20 08:12 Duloxetine HCl (Cymbalta) 60 mg QHS PO 08/08/20 21:00 08/10/20 21:31 EZETIMIBE (Zetia) 10 mg QHS PO 08/08/20 21:00 08/10/20 21:32 Ferrous Sulfate (Ferrous Sulfate) 325 mg BID PO 08/14/20 09:00 Furosemide (LASIX injection) 40 mg DAILY IV 08/13/20 09:00 08/14/20 09:39 Furosemide (Lasix) 40 mg DAILY PO 08/09/20 09:00 08/12/20 15:43 DC Glucagon (Glucagon) 1 mg ASDIRECTED PRN SC SEE LABEL COMMENTS 08/08/20 16:30 Glucose (Glucose) 16 GM ASDIRECTED PRN PO SEE LABEL COMMENTS 08/08/20 16:30 Home Med (Med Rec Complete!) ASDIRECTED XX 08/08/20 15:15 08/08/20 15:09 DC Insulin Detemir (Levemir Insulin) 10 units QHS SC 08/11/20 21:00 Insulin Detemir (Levemir Insulin) 20 units QHS SC 08/08/20 21:00 08/11/20 17:03 DC Insulin Human Lispro (HumaLOG INSULIN) SEE PROTOCOL TABLE AC SC 08/08/20 17:30 08/11/20 17:02 DC 08/11/20 12:26 Insulin Human Lispro (HumaLOG INSULIN) SEE PROTOCOL TABLE Q6H SC 08/11/20 18:00 08/12/20 00:09 Insulin Human Lispro (HumaLOG INSULIN) SEE PROTOCOL TABLE QHS SC 08/08/20 21:00 08/11/20 17:02 DC Levofloxacin (Levaquin) 250 mg DAILY@06 PO 08/12/20 06:00 08/11/20 17:02 DC Levofloxacin 250 mg/IV Miscellaneous Supplies 50 ml @ 50 mls/hr Q24H IV 08/12/20 13:00 08/14/20 12:42 Levothyroxine Sodium (Synthroid) 25 mcg DAILY@0600 PO 08/09/20 06:00 08/11/20 05:51 Meropenem 1 gm/IV Miscellaneous Supplies 50 ml @ 100 mls/hr Q8H IV 08/08/20 22:00 08/11/20 08:31 DC 08/11/20 05:52 Metoprolol Tartrate (Lopressor) 50 mg BID PO 08/08/20 21:00 08/10/20 21:32 Neomycin/ Polymyxin/ Dexamethasone (Maxitrol) APPLY TO RIGHT EYE QID OD 08/09/20 13:00 08/14/20 12:42 Oxymetazoline HCl (Afrin) 2 spray ASDIRECTED PRN NA SEE LABEL COMMENTS 08/11/20 10:30 08/12/20 04:40 DC 08/12/20 04:40 Potassium Chloride (Micro-K Extencaps) 20 meq DAILY PO 08/09/20 09:00 08/10/20 08:32 DC 08/09/20 09:06 Tamsulosin HCl (Flomax) 0.4 mg DAILY PO 08/09/20 09:00 08/11/20 08:12 Tobramycin/ Dexamethasone (Tobradex Ophth Susp) 1 drop QID OD 08/09/20 13:00 Cancel Allergies Coded Allergies: Penicillins (Verified Allergy, Intermediate, swelling, 03/10/20) prednisone (Verified Adverse Reaction, Intermediate, tachycardia, 03/10/20) Dorothy Burrows MD Aug 14, 2020 15:37
[2020-08-14] MEDS: DULoxetine 30 MG CAP (CYMBALTA) PO SCH (21:00)
[2020-08-14] MEDS: LEVEMIR (INSULIN DETEMIR) 1 UNITS/0.01ML SC SCH (21:00)
[2020-08-14] MEDS: amLODIPine 10 MG TAB PO SCH (21:00)
[2020-08-14] MEDS: EZETIMIBE 10 MG TAB (ZETIA) PO SCH (21:00)
[2020-08-14] MEDS: ATORVASTATIN 20 MG TAB PO SCH (21:00)
[2020-08-14 22:00] VITALS: BP 156/78
[2020-08-15] VITALS (9 sets, daily range): BP systolic 148–165; BP diastolic 76–88
[2020-08-15 05:27] LABS: BASO # 0.1 10^3/uL (0.0-0.2); EOS # 0.4 10^3/uL (0.0-0.5); HEMATOCRIT 28.9 % (36.0-47.0); HEMOGLOBIN 8.7 g/dl (12.0-15.5); LYMPH # 1.8 10^3/uL (1.5-5.0); LYMPH % 27.1 % (24.0-44.0); MEAN CORPUSCULAR HGB CONC 30.1 g/dl (32.0-36.5); MEAN CORPUSCULAR VOLUME 96.3 fl (80.0-96.0); MONO # 1.1 10^3/uL (0.0-0.8); MONO % 15.9 % (0.0-5.0); NEUTROPHILS # 3.3 10^3/uL (1.5-8.5); NEUTROPHILS % 49.7 % (36.0-66.0); PLATELET COUNT, AUTOMATED 276 10^3/uL (150-450); WHITE BLOOD COUNT 6.7 10^3/uL (4.0-10.0)
[2020-08-15] MEDS: LEVOTHYROXINE 25MCG TABLET (0.025MG) PO SCH (05:51)
[2020-08-15 05:53] LABS: BLOOD UREA NITROGEN 9 MG/DL (7-18); CALCIUM LEVEL 8.2 MG/DL (8.5-10.1); CARBON DIOXIDE LEVEL 31 MEQ/L (21-32); CHLORIDE LEVEL 107 MEQ/L (98-107); CREATININE FOR GFR 0.84 MG/DL (0.55-1.30); GLOMERULAR FILTRATION RATE > 60.0 (>51); GLUCOSE, FASTING 127 MG/DL (70-100); POTASSIUM SERUM 3.6 MEQ/L (3.5-5.1); SODIUM LEVEL 142 MEQ/L (136-145)
[2020-08-15] MEDS: HumaLOG INSULIN (NovoLOG) PER UNIT SC SCH ×4 (06:00→17:40)
[2020-08-15] MEDS: IPRATROPIUM 0.5MG/ALBUTEROL 2.5MG INH SOL UD 3ML (DUONEB) NEB SCH ×4 (08:00→20:00)
[2020-08-15] MEDS: TAMSULOSIN 0.4 MG CAP PO SCH (08:34)
[2020-08-15] MEDS: ASPIRIN 81 MG CHEW TABLET NG SCH (08:34)
[2020-08-15] MEDS: FERROUS SULFATE 325MG TAB PO SCH (08:34)
[2020-08-15] MEDS: METOPROLOL TART 50 MG TAB PO SCH ×2 (08:34→22:04)
[2020-08-15] MEDS: FUROSEMIDE 40MG/4ML VIAL (J1940) IV SCH (08:37)
[2020-08-15] MEDS: MAXITROL OPHTH OINT 3.5 GM OD SCH ×4 (08:38→22:05)
[2020-08-15] MEDS ORDERED: propofoL 200 MG/20 ML VIAL As Ordered ONE (09:12)
[2020-08-15] MEDS ORDERED: MIDAZOLAM INJ 2MG/2ML VIAL (J2250 PER 1MG) As Ordered ONE (09:12)
[2020-08-15] MEDS ORDERED: fentaNYL 100 MCG/2 ML INJECTION (J3010) As Ordered ONE (09:12)
[2020-08-15] MEDS ORDERED: LIDOCAINE 2% 100MG/5ML SDV (FOR ANES.) As Ordered ONE (09:12)
[2020-08-15] MEDS ORDERED: ONDANSETRON 4MG/2ML VIAL As Ordered ONE (09:13)
--- NOTE | 2020-08-15 09:38 | IPNPDOC ---
Text Note Date of Service The patient was seen on 08/15/20. NOTE No acute events over the weekend. She is scheduled for a PEG tube this am. No questions or concerns. VSSAF CLARISSA abd - soft, nt, nd A) 55y/o female with dysphagia secondary to CVA and vocal cord paralysis. P) PEG tube this am all questions answered and consent is signed. no changes to H+P. Amrit Ortiz DO VS,Letty, I+O VS, Letty, I+O Laboratory Tests 08/15/20 05:11 Vital Signs Date Time Temp Pulse Resp B/P (MAP) Pulse Ox O2 Delivery O2 Flow Rate FiO2 08/15/20 06:00 98.4 96 16 148/76 (100) 92 Nasal Cannula 1.0 I&O- Last 24 Hours up to 6 AM 08/15/20 06:00 Intake Total 1180 ml Output Total 2000 ml Balance -820 ml DANN ORTIZ DO Aug 15, 2020 09:38
[2020-08-15] MEDS ORDERED: LABETALOL 100MG/20ML VIAL As Ordered ONE (10:24)
[2020-08-15] MEDS ORDERED: ONDANSETRON 4MG/2ML VIAL IV PRN (11:00)
[2020-08-15] MEDS ORDERED: fentaNYL 100 MCG/2 ML INJECTION (J3010) IV PRN (11:00)
--- NOTE | 2020-08-15 12:19 | RO ---
OPERATIVE NOTE DATE OF OPERATION: 08/15/2020 PREOPERATIVE DIAGNOSIS: Dysphagia. POSTOPERATIVE DIAGNOSIS: Dysphagia. PROCEDURE: Esophagogastroduodenoscopy with percutaneous endoscopic gastrostomy tube placement and placement of 20-Lithuanian feeding tube. SURGEON: Diego Ortiz DO ASSIST: None. ANESTHESIA: MAC with 4 mL of 1% Lidocaine local. COMPLICATIONS: None. INDICATIONS FOR PROCEDURE: The patient is a 55-year-old female status post stroke this past summer. She has resulted in vocal cord paralysis and dysphagia secondary to that with aspiration pneumonia. Recommendation was to proceed with feeding tube placement. Risks and benefits of the procedure not limited to but including bleeding, infection, perforation, damage to surrounding structures, need for further surgery were discussed in detail with the patient and informed consent was obtained, procedure was planned. PROCEDURE: The patient was brought back to operating room 2. After sedation the abdomen was sterilely prepped and draped with Chlorhexidine. Time out was performed confirming proper patient and proper procedure. Scope was passed down inside the stomach through the pyloric mouth briefly, brought back inside the stomach. The prepyloric area was examined through palpation through the abdominal wall and was able to identify proper location for the feeding tube. The skin was injected with local. 11-blade scalpel was then used to make a 1 cm incision and cannulation needle was then passed through the abdominal wall into the stomach under direct visualization. Guidewire was passed in and grabbed with snare through the scope. Guidewire was then brought out through the mouth and the 20-Lithuanian feeding tube was then passed over top of the guidewire and brought out through the abdominal wall. Once that was completed the guidewire was removed. Tube was cut to length, bumper was placed and clamp was placed on the feeding tube. Endoscope was then passed back down inside the stomach to examine and make sure there was proper positioning for the tube as well as no signs of any bleeding. Once that was completed the scope was removed. The tube was secured in place and caps were placed on it. Once that was completed she was awakened from anesthesia and sent to PACU in stable condition. MOISÉS
[2020-08-15 13:09] LABS: VITAMIN B12 LEVEL 538 PG/ML (247-911)
[2020-08-15 13:10] LABS: FOLATE 12.7 NG/ML (>5.4)
[2020-08-15] MEDS: D5W/0.9% SODIUM CHLORIDE 1,000 ML IV SCH (14:16)
[2020-08-15] MEDS: LevoFLOXacin IV 250 MG in IV 1 EA IV SCH (14:42)
--- NOTE | 2020-08-15 18:28 | IPNPDOC ---
Date Seen The patient was seen on 08/15/20. Progress Note SUBJECTIVE: No events overnight. Slid off side of bed today but this was witnessed with nursing in the room. Feeding tube to be done today. Denies incr cough, shortness of breath, chest pain, fevers, chills, n/v. OBJECTIVE: PHYSICAL EXAMINATION: VITAL SIGNS: see below GENERAL APPEARANCE: no distress. speaks in full sentences. no pallor or cyanosis appears older than her stated age. right eye ptosis. HEENT: no jvd. dry mm. no carotid bruits. no stridor, tracheal deviation, or nasal flaring. No thyromegaly or cervical LAD. no pharyngeal erythema. right eyelid swelling, slightly discolored, no conjunctivitis- patient states this is much improved from two weeks ago CARDIOVASCULAR:s1s2 RRR no m/r/g, nondisplaced pmi LUNGS: B/l fine crackles middle lobe and base- improving. no wheezing ABDOMEN: soft nt nd +bs x 4quadrants no fluid wave. no hsm. no abdominal bruits EXTREMITIES: trace le edema b/l SKIN: no cyanosis. warm dry pink in color well perfused LABORATORY DATA: See below. IMAGING: Chest CT without IV contrast: Right middle lobe and right lower lobe infiltrates as described. Small right pleural effusions. Multiple right lung nodular densities as described. Multiple normal size mediastinal nodes. Cardiomegaly. Coronary artery vascular stents. MICROBIOLOGY: Please see below. 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 Pt had noticed increasing KAUR with ambulation, chronic cough productive of white sputum, without chills, h/a, n/v/abd pain, diarrhea, rhinorrhea, sore throat. COVID-19 negative in the ER. CXR: right PNA and small pleural effusion. She denied pnd, orthopnea, LE edema, or weight gain.Hospitalist was asked to admit for CAP. PLAN: Dysphagia with aspiration -FEES showed aspiration risk for all thickened foods also, vocal cord dysfunction. -Speech recommending NPO status until alternative feeding route decided -NPO -Keep on D5W until feeding tube placed -General surgery consulted and will place feeding tube today, f/u recommendation for diet -Discussed case with Dr. Price who recommended to consult ENT to evaluate vocal cord dysfunction after feeding tube placed Aspiration PNA RML/RLL -Supplemental oxygen to keep o2 sat>90%, currently 1 L NC -WBC wnl -sputum cx unable to be obtained, BCX NG -nebs qid and prn q1hr, Acapella Q2H while awake -Day 04/04 for abx treatment. Switched to PO levofloxacin 08/12/20 -Patient is not on home O2 so will need walking test with and without O2 24 hours after feeding tube placed to see if patient will need home O2. Acute Hypoxic Respiratory Failure due to CAP -C/w treatment above Right eye swelling, ptosis -Patient has been seeing senior training specialist as o/p, has been on o/p abx -C/w eye ointment as prescribed, on abx here CVA 2/2 to left vertebral artery thrombosis -Dysphagia reported by patient, swallowing eval above -PT/OT: C/w home with 18/03 care as she has now -Resume ASA, statin, plavix when able to take pills after feeding tube Systolic CHF, compensated -monitor fluid balance. strict i/o, weigh daily, 2liter fluid restriction -C/w home meds with feeding tube or NG tube when placed -lasix IV for now -Follows with resort keeper Dr. Nascimento DM2 -BS stable with D5W -insulin sliding scale Q6H, levemir decreased while NPO and on D5W -NPO -hypoglycemic protocol HTN -controlled. -C/w home BB and CCB when able to take pills after feeding tube -For now c/w lasix IV Asthma, compensated -no wheezing on exam -qid nebs and o7esany for sob Dyslipidemia -resume home meds with feeding tube CAD w coronary stents -C/w home meds. no acute ischemic symptoms. -Cardiac markers neg -Dr. Nascimento, resort keeper -C/w BB, CCB, ASA, Statin, plavix when able to take pills after feeding tube Hypothyroidism -C/w synthroid with feeding tube GERD -asymptomatic Anxiety/Depression -no c/o. -C/w home med when able to take pills after feeding tube Vitamin D deficiency -outpt fu DVT prophylaxis -lovenox DISPOSITION: General surgery following, feeding tube placement scheduled for today. Will need ENT consult after feeding tube placement. Plan is still home with 24/7 care (already has) when medically improved. Will need testing to see if she needs home O2 prior to discharge. VS, I&O, 24H, Fishbone Vital Signs/I&O Vital Signs Date Time Temp Pulse Resp B/P (MAP) Pulse Ox O2 Delivery O2 Flow Rate FiO2 08/15/20 16:30 97.5 86 18 162/88 (112) 100 Nasal Cannula 1.0 I&O- Last 24 Hours up to 6 AM 08/15/20 05:59 Intake Total 1780 ml Output Total 2200 ml Balance -420 ml Laboratory Data 24H LABS Laboratory Tests 2 08/15/20 00:24: Bedside Glucose (Misc Panel) 109H 08/15/20 05:11: Immature Granulocyte % (Auto) 0.3, Neutrophils (%) (Auto) 49.7, Lymphocytes (%) (Auto) 27.1, Monocytes (%) (Auto) 15.9H, Eosinophils (%) (Auto) 6.0H, Basophils (%) (Auto) 1.0, Neutrophils # (Auto) 3.3, Lymphocytes # (Auto) 1.8, Monocytes # (Auto) 1.1H, Eosinophils # (Auto) 0.4, Basophils # (Auto) 0.1, Nucleated Red Blood Cells % (auto) 0.0, Anion Gap 4L, Glomerular Filtration Rate > 60.0, Calcium Level 8.2L 08/15/20 05:25: Bedside Glucose (Misc Panel) 115H 08/15/20 12:29: Bedside Glucose (Misc Panel) 126H 08/15/20 17:11: Bedside Glucose (Misc Panel) 123H CBC/BMP Laboratory Tests 08/15/20 05:11 Microbiology Microbiology 08/08/20 Blood Culture - Final, Complete NO GROWTH AFTER 5 DAYS 08/08/20 Blood Culture - Final, Complete NO GROWTH AFTER 5 DAYS 08/08/20 Respiratory Virus Panel (PCR) (CRISPIN) - Final, Complete Current Medications Current Medications Medications (Trade) Dose Ordered Sig/Abram Route PRN Reason Start Time Stop Time Status Last Admin Dose Admin Acetaminophen (Tylenol Tab) 650 mg Q4H PRN PO PAIN / FEVER 08/08/20 18:15 Albuterol/ Ipratropium (Combivent Respimat 100-20mcg) 4 puff Q20M INH 08/08/20 14:30 08/08/20 15:11 DC 08/08/20 14:45 Albuterol/ Ipratropium (Duoneb (Ipr 0.5mg/Alb 2.5mg)) 3 ml Q2HP PRN NEB SOB/WHEEZING 08/08/20 18:30 Albuterol/ Ipratropium (Duoneb (Ipr 0.5mg/Alb 2.5mg)) 3 ml RQID NEB 08/08/20 20:00 08/14/20 18:17 Amlodipine Besylate (Norvasc) 10 mg QHS PO 08/08/20 21:00 08/12/20 00:09 Aspirin (Aspirin Chewable) 81 mg DAILY NG 08/12/20 09:00 Aspirin (Ecotrin) 81 mg DAILY PO 08/09/20 09:00 08/11/20 22:38 DC 08/11/20 08:14 Atorvastatin Calcium (Lipitor) 80 mg QHS PO 08/08/20 21:00 08/10/20 21:31 Ceftriaxone Sodium 2 gm/ Dextrose 50 ml @ 100 mls/hr Q12H IV 08/08/20 18:00 08/08/20 16:56 DC Clopidogrel Bisulfate (PLAVix) 75 mg DAILY PO 08/09/20 09:00 08/11/20 16:52 DC 08/11/20 08:12 Dextrose (Dextrose 50%) 25 ml ASDIRECTED PRN IV SEE LABEL COMMENTS 08/08/20 16:30 Dextrose/Sodium Chloride 1,000 ml @ 75 mls/hr [id number] IV 08/11/20 17:00 08/14/20 21:02 Doxycycline Hyclate 100 mg/ Dextrose 100 ml @ 100 mls/hr Q12H IV 08/08/20 21:00 08/11/20 08:31 DC 08/11/20 08:12 Duloxetine HCl (Cymbalta) 60 mg QHS PO 08/08/20 21:00 08/10/20 21:31 EZETIMIBE (Zetia) 10 mg QHS PO 08/08/20 21:00 08/10/20 21:32 Fentanyl Citrate (Sublimaze) 25 mcg Q5MP PRN IV PAIN LEVEL 5-10 08/15/20 11:00 08/15/20 12:00 DC Ferrous Sulfate (Ferrous Sulfate) 325 mg BID PO 08/14/20 09:00 Furosemide (LASIX injection) 40 mg DAILY IV 08/13/20 09:00 08/15/20 08:37 Furosemide (Lasix) 40 mg DAILY PO 08/09/20 09:00 08/12/20 15:43 DC Glucagon (Glucagon) 1 mg ASDIRECTED PRN SC SEE LABEL COMMENTS 08/08/20 16:30 Glucose (Glucose) 16 GM ASDIRECTED PRN PO SEE LABEL COMMENTS 08/08/20 16:30 Home Med (Med Rec Complete!) ASDIRECTED XX 08/08/20 15:15 08/08/20 15:09 DC Insulin Detemir (Levemir Insulin) 10 units QHS SC 08/11/20 21:00 Insulin Detemir (Levemir Insulin) 20 units QHS SC 08/08/20 21:00 08/11/20 17:03 DC Insulin Human Lispro (HumaLOG INSULIN) SEE PROTOCOL TABLE AC IL 08/08/20 17:30 08/11/20 17:02 DC 08/11/20 12:26 Insulin Human Lispro (HumaLOG INSULIN) SEE PROTOCOL TABLE Q6H IL 08/11/20 18:00 08/12/20 00:09 Insulin Human Lispro (HumaLOG INSULIN) SEE PROTOCOL TABLE QHS IL 08/08/20 21:00 08/11/20 17:02 DC Levofloxacin (Levaquin) 250 mg DAILY@06 PO 08/12/20 06:00 08/11/20 17:02 DC Levofloxacin 250 mg/IV Miscellaneous Supplies 50 ml @ 50 mls/hr Q24H IV 08/12/20 13:00 08/15/20 14:42 Levothyroxine Sodium (Synthroid) 25 mcg DAILY@0600 PO 08/09/20 06:00 08/11/20 05:51 Meropenem 1 gm/IV Miscellaneous Supplies 50 ml @ 100 mls/hr Q8H IV 08/08/20 22:00 08/11/20 08:31 DC 08/11/20 05:52 Metoprolol Tartrate (Lopressor) 50 mg BID PO 08/08/20 21:00 08/10/20 21:32 Neomycin/ Polymyxin/ Dexamethasone (Maxitrol) APPLY TO RIGHT EYE QID OD 08/09/20 13:00 08/15/20 17:40 Ondansetron HCl (ZOFRAN INJection) 4 mg Q4HP PRN IV NAUSEA OR VOMITING 08/15/20 11:00 08/15/20 12:00 DC Oxymetazoline HCl (Afrin) 2 spray ASDIRECTED PRN NA SEE LABEL COMMENTS 08/11/20 10:30 08/12/20 04:40 DC 08/12/20 04:40 Potassium Chloride (Micro-K Extencaps) 20 meq DAILY PO 08/09/20 09:00 08/10/20 08:32 DC 08/09/20 09:06 Tamsulosin HCl (Flomax) 0.4 mg DAILY PO 08/09/20 09:00 08/11/20 08:12 Tobramycin/ Dexamethasone (Tobradex Ophth Susp) 1 drop QID OD 08/09/20 13:00 Cancel Allergies Coded Allergies: Penicillins (Verified Allergy, Intermediate, swelling, 03/10/20) prednisone (Verified Adverse Reaction, Intermediate, tachycardia, 03/10/20) Dorothy Burrows MD Aug 15, 2020 18:28
[2020-08-15] MEDS: DULoxetine 30 MG CAP (CYMBALTA) PO SCH (20:53)
[2020-08-15] MEDS: LEVEMIR (INSULIN DETEMIR) 1 UNITS/0.01ML SC SCH (20:54)
[2020-08-15] MEDS: ATORVASTATIN 20 MG TAB PO SCH (22:03)
[2020-08-15] MEDS: EZETIMIBE 10 MG TAB (ZETIA) PO SCH (22:04)
[2020-08-15] MEDS: amLODIPine 10 MG TAB PO SCH (22:04)
[2020-08-15] MEDS: FERROUS SULFATE 300MG/5ML UDC LIQUID PO SCH (22:19)
[2020-08-16] MEDS: HumaLOG INSULIN (NovoLOG) PER UNIT SC SCH ×4 (00:14→17:15)
[2020-08-16 05:52] LABS: HEMATOCRIT 29.1 % (36.0-47.0); HEMOGLOBIN 8.7 g/dl (12.0-15.5); MEAN CORPUSCULAR HEMOGLOBIN 28.6 pg (27.0-33.0); MEAN CORPUSCULAR HGB CONC 29.9 g/dl (32.0-36.5); MEAN CORPUSCULAR VOLUME 95.7 fl (80.0-96.0); PLATELET COUNT, AUTOMATED 266 10^3/uL (150-450); RED BLOOD COUNT 3.04 10^6/uL (4.00-5.40); WHITE BLOOD COUNT 7.1 10^3/uL (4.0-10.0)
[2020-08-16 06:00] VITALS: BP 118/66
[2020-08-16] MEDS: LEVOTHYROXINE 25MCG TABLET (0.025MG) PO SCH (06:12)
[2020-08-16 06:23] LABS: ALBUMIN 2.1 GM/DL (3.2-5.2); ALT/SGPT 15 U/L (12-78); BILIRUBIN,TOTAL 0.3 MG/DL (0.2-1.0); BLOOD UREA NITROGEN 9 MG/DL (7-18); CALCIUM LEVEL 7.9 MG/DL (8.5-10.1); CARBON DIOXIDE LEVEL 33 MEQ/L (21-32); CHLORIDE LEVEL 105 MEQ/L (98-107); CREATININE FOR GFR 0.89 MG/DL (0.55-1.30); GLOMERULAR FILTRATION RATE > 60.0 (>51); GLUCOSE, FASTING 116 MG/DL (70-100); POTASSIUM SERUM 3.7 MEQ/L (3.5-5.1); SODIUM LEVEL 141 MEQ/L (136-145); TOTAL PROTEIN 6.4 GM/DL (6.4-8.2)
[2020-08-16] MEDS: TAMSULOSIN 0.4 MG CAP PO SCH (07:46)
[2020-08-16] MEDS: IPRATROPIUM 0.5MG/ALBUTEROL 2.5MG INH SOL UD 3ML (DUONEB) NEB SCH ×4 (08:00→18:17)
[2020-08-16] MEDS: METOPROLOL TART 50 MG TAB PO SCH (09:16)
[2020-08-16] MEDS: ASPIRIN 81 MG CHEW TABLET NG SCH (09:16)
[2020-08-16] MEDS: MAXITROL OPHTH OINT 3.5 GM OD SCH ×3 (09:17→17:13)
[2020-08-16] MEDS: FUROSEMIDE 40MG/4ML VIAL (J1940) IV SCH (09:17)
--- NOTE | 2020-08-16 12:14 | IPNPDOC ---
Date Seen The patient was seen on 08/16/20. Progress Note SUBJECTIVE: Patient denies any shortness of breath, cough, fever, chills overnight. She wants to go home today feeding tube has been placed yesterday. [employer] Kiln Loader has been consulted for tube feeding recommendations. Patient is refusing bolus feeding but was agreeable to try this since this is required for insurance purposes. OBJECTIVE: PHYSICAL EXAMINATION: VITAL SIGNS: see below GENERAL APPEARANCE: A thin. There is no pallor or icterus HEENT: no jvd. dry mm. no carotid bruits. . Heart:s1s2 RRR LUNGS: Diminished breath sounds, crackles at the right base ABDOMEN: soft nt nd +bs x 4quadrants . Feeding tube EXTREMITIES: trace le edema b/l SKIN: no cyanosis. warm dry pink in color well perfused LABORATORY DATA: See below. IMAGING: Chest CT without IV contrast: Right middle lobe and right lower lobe infiltrates as described. Small right pleural effusions. Multiple right lung nodular densities as described. Multiple normal size mediastinal nodes. Cardiomegaly. Coronary artery vascular stents. MICROBIOLOGY: Please see below. 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 Patient was admitted for aspiration pneumonia and acute hypoxic respiratory failure requiring supplemental oxygen. 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 She is medically stable for hospital discharge, but will have to try tube feedings prior to discharge with boluses. If no issues overnight and tolerating bolus feedings. Patient may be discharged home tomorrow with home care. . Continue strict I's and O's, daily weights. May resume patient's home medications at hospital discharge. VS, I&O, 24H, Fishbone Vital Signs/I&O Vital Signs Date Time Temp Pulse Resp B/P (MAP) Pulse Ox O2 Delivery O2 Flow Rate FiO2 08/16/20 09:16 70 131/65 08/16/20 09:15 1.0 08/16/20 06:00 98.0 18 94 Nasal Cannula I&O- Last 24 Hours up to 6 AM 08/16/20 06:00 Intake Total 900 ml Output Total 2600 ml Balance -1700 ml Laboratory Data 24H LABS Laboratory Tests 2 08/15/20 12:29: Bedside Glucose (Misc Panel) 126H 08/15/20 17:11: Bedside Glucose (Misc Panel) 123H 08/16/20 00:08: Bedside Glucose (Misc Panel) 111H 08/16/20 05:26: Nucleated Red Blood Cells % (auto) 0.0, Anion Gap 3L, Glomerular Filtration Rate > 60.0, Calcium Level 7.9L, Total Bilirubin 0.3, Aspartate Amino Transf (AST/SGOT) 14, Alanine Aminotransferase (ALT/SGPT) 15, Alkaline Phosphatase 60, Total Protein 6.4, Albumin 2.1L, Albumin/Globulin Ratio 0.5L 08/16/20 05:33: Bedside Glucose (Misc Panel) 105 08/16/20 11:50: Bedside Glucose (Misc Panel) 84 CBC/BMP Laboratory Tests 08/16/20 05:26 Microbiology Microbiology 08/08/20 Blood Culture - Final, Complete NO GROWTH AFTER 5 DAYS 08/08/20 Blood Culture - Final, Complete NO GROWTH AFTER 5 DAYS 08/08/20 Respiratory Virus Panel (PCR) ([facility]) - Final, Complete HEDY WIGGINS MD Aug 16, 2020 12:14
[2020-08-16 13:46] VITALS: BP 135/65
[2020-08-16 13:55] VITALS: BP 113/57
[2020-08-16 22:00] VITALS: BP 136/64
[2020-08-17] MEDS: LEVEMIR (INSULIN DETEMIR) 1 UNITS/0.01ML SC SCH (00:14)
[2020-08-17] MEDS: ATORVASTATIN 20 MG TAB PO SCH (00:30)
[2020-08-17] MEDS: FERROUS SULFATE 300MG/5ML UDC LIQUID PO SCH (00:30)
[2020-08-17] MEDS: METOCLOPRAMIDE 10 MG TAB PO SCH ×3 (00:31→12:00)
[2020-08-17] MEDS: METOPROLOL TART 50 MG TAB PO SCH ×2 (00:31→08:54)
[2020-08-17] MEDS: amLODIPine 10 MG TAB PO SCH (00:31)
[2020-08-17] MEDS: EZETIMIBE 10 MG TAB (ZETIA) PO SCH (00:32)
[2020-08-17] MEDS: MAXITROL OPHTH OINT 3.5 GM OD SCH ×3 (00:32→14:21)
[2020-08-17] MEDS: HumaLOG INSULIN (NovoLOG) PER UNIT SC SCH ×3 (01:45→12:45)
[2020-08-17] MEDS: DULoxetine 30 MG CAP (CYMBALTA) PO SCH (01:59)
[2020-08-17 06:00] VITALS: BP 118/73
[2020-08-17] MEDS: LEVOTHYROXINE 25MCG TABLET (0.025MG) PO SCH (06:21)
[2020-08-17] MEDS: IPRATROPIUM 0.5MG/ALBUTEROL 2.5MG INH SOL UD 3ML (DUONEB) NEB SCH ×3 (08:00→16:00)
[2020-08-17] MEDS: ASPIRIN 81 MG CHEW TABLET NG SCH (08:50)
[2020-08-17 08:54] VITALS: BP 125/71
[2020-08-17] MEDS: FUROSEMIDE 40MG/4ML VIAL (J1940) IV SCH (08:55)
[2020-08-17] MEDS: TAMSULOSIN 0.4 MG CAP PO SCH (08:59)
--- NOTE | 2020-08-17 09:53 | DS.PDOC ---
Discharge Summary General Date of Admission Aug 08, 2020 at 16:25 Date of Discharge 08/17/20 Discharge Summary PROCEDURES PERFORMED DURING STAY: PEG Tube 08/15/20 Dr. Ortiz DISCHARGE DIAGNOSES: Aspiration Pneumonia requiring new PEG Tube placement Vocal cord dysfunction CVA 03/10/20 h/o left vertebral thrombosis systolic CHF, compensated right orbital cellulitis, left asthma DM2 HTN dyslipidemia CAD w coronary stents hypothyroidism GERD depression anxiety vitamin D deficiency chronic low back pain DISCHARGE MEDICATIONS: SEE BELOW DISCHARGE INSTRUCTIONS: DR. ORTIZ FOR PEG TUBE ISSUES. PCP 1WK, NEUROLOGIST RECOMMENDED. 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 Pt had noticed increasing KAUR with ambulation, chronic cough productive of white sputum, without chills, h/a, n/v/abd pain, diarrhea, rhinorrhea, sore throat. COVID-19 negative in the ER. CXR: right PNA and small pleural effusion. She denied pnd, orthopnea, LE edema, or weight gain.Hospitalist was asked to admit for Aspiration pneumonia HOSPITAL COURSE: Aspiration pneumonia -due to vocal cord dysfunction, needing feeding tube by Dr. ortiz 08/15/20 -supplemental oxygen to keep o2 sat>90% -due to PCN allergy, meropenem iv q8hrs, doxycycline for atypical coverage given and changed to quinolone -completed antibiotics in the hospital -negative blood cultures -nebs qid and prn q1hr -ENT appt to eval vocal cord dysfunction as outpt -droplet precautions Acute Hypoxic Respiratory Failure due to CAP --supplemental oxygen to keep o2 sat>90% --nebs qid and prn q1hr CVA / Left vertebral artery thrombosis -PT/OT -continued home meds. obtained records from PCP Systolic CHF, compensated -monitored fluid balance. strict i/o, weigh daily, 2liter fluid restriction -resumed home meds. obtained records from molded rubber goods cutter Dr. Nascimento DM2 -checked A1c, consistent carbs diet, insulin sliding scale, hypoglycemic protocol HTN -controlled. obtained med list and progress note from Dr. Nascimento, molded rubber goods cutter Asthma, compensated -no wheezing on exam -qid nebs and [id number] for sob Dyslipidemia -checked lipid panel. -resumed home meds -obtained med list and progress note from Dr. Nascimento, molded rubber goods cutter CAD w coronary stents -resumed home meds. noacute ischemic symptoms. -cycled cardiac markers, negative Hypothyroidism -resumed synthroid, checked tsh GERD -asymptomatic Anxiety/Depression -no c/o. Vitamin D deficiency -outpt fu DVT prophylaxis:lovenox Code status: full code. LABORATORY DATA: See below. IMAGING: INDICATION: infiltrate vs pleural effusion. COMPARISON: Portable chest performed earlier today. There are no comparison chest CTs. TECHNIQUE: Chest CT without IV contrast. FINDINGS: There is an infiltrate inferiorly in the right middle lobe. There is a patchy infiltrate in the right lower lobe. There is a small right pleural effusion. There is a 9 mm lung nodule peripherally in the right upper lobe on image 27. There is an 8 mm right middle lobe nodule peripherally on image 36. There is a 12 mm right middle lobe lung nodule peripherally on image 41. The left lung is unremarkable except for a small focal zone of atelectasis inferiorly in the lingula. There are multiple normal size paratracheal and anterior mediastinal nodes. The study is insensitive for hilar lymph node enlargement in the absence of IV contrast. There is no axillary lymph node enlargement. The thoracic aorta is unremarkable. Cardiac size is enlarged. There are coronary artery vascular stents. No pericardial effusion. IMPRESSION: Right middle lobe and right lower lobe infiltrates as described. Small right pleural effusions. Multiple right lung nodular densities as described. Multiple normal size mediastinal nodes. Cardiomegaly. Coronary artery vascular stents. <Electronically signed by Diego Rios > 08/08/20 MICROBIOLOGY: Please see below. TIME SPENT ON DISCHARGE: 30 MIN Vital Signs/I&Os Vital Signs Date Time Temp Pulse Resp B/P (MAP) Pulse Ox O2 Delivery O2 Flow Rate FiO2 08/17/20 08:54 63 125/71 08/17/20 06:00 97.9 18 100 Nasal Cannula 2.0 I&O- Last 24 Hours up to 6 AM 08/17/20 06:00 Intake Total 1060 ml Output Total 975 ml Balance 85 ml Laboratory Data Labs 24H Laboratory Tests 2 08/16/20 11:50: Bedside Glucose (Misc Panel) 84 08/16/20 16:41: Bedside Glucose (Misc Panel) 143H 08/17/20 00:13: Bedside Glucose (Misc Panel) 104 08/17/20 05:47: Bedside Glucose (Misc Panel) 164H FSBS Laboratory Tests Test 08/16/20 11:50 08/16/20 16:41 08/17/20 00:13 08/17/20 05:47 Range/Units Bedside Glucose (Misc Panel) 84 143 104 164 70-105 MG/DL Microbiology Microbiology 08/16/20 Stool Occult Blood ([facility]) - Final, Complete 08/08/20 Blood Culture - Final, Complete NO GROWTH AFTER 5 DAYS 08/08/20 Blood Culture - Final, Complete NO GROWTH AFTER 5 DAYS 08/08/20 Respiratory Virus Panel (PCR) ([facility]) - Final, Complete Discharge Medications Scheduled Amlodipine Besylate (Amlodipine Besylate) 10 Mg Tablet, 10 MG PO QHS, (Reported) Aspirin (Aspirin EC) 81 Mg Tablet.dr, 81 MG PO DAILY, (Reported) Atorvastatin Calcium (Atorvastatin Calcium) 80 Mg Tablet, 80 MG PO QHS, (Reported) Clopidogrel Bisulfate (Plavix) 75 Mg Tablet, 75 MG PO DAILY, (Reported) Duloxetine Hcl (Duloxetine HCl) 60 Mg Capsule.dr, 60 MG PO QHS, (Reported) Ezetimibe (Ezetimibe) 10 Mg Tablet, 10 MG PO QHS, (Reported) Furosemide (Furosemide) 40 Mg Tablet, 40 MG PO DAILY, (Reported) Insulin Glargine,Hum.rec.anlog (Basaglar Kwikpen U-100) 100 Unit/1 Ml Insuln.pen, 20 UNIT SC QHS, (Reported) Insulin Human Lispro (Humalog) 100 Unit/1 Ml Vial, 1 DOSE SC AC, (Reported) PER SLIDING SCALE 151-200 4 UNITS 201-250 6 UNITS 251-300 8 UNITS 301-350 10 UNITS 351-400 12 UNITS Levothyroxine Sodium (Synthroid) 25 Mcg Tablet, 25 MCG PO DAILY, (Reported) Metoprolol Tartrate (Metoprolol Tartrate) 50 Mg Tablet, 50 MG PO BID, (Reported) Neomycin/Polymyxin B/Dexametha (Maxitrol Eye Ointment) 3.5 Gm Oint...g., 1 APLCT OD QID, (Reported) Potassium Chloride (Potassium Chloride) 20 Meq Tab.er.prt, 20 MEQ PO DAILY, (Reported) Tamsulosin HCl (Flomax) 0.4 Mg Capsule, 0.4 MG PO DAILY, (Reported) Scheduled PRN Acetaminophen (Tylenol) 325 Mg Tablet, 650 MG PO Q4H PRN for PAIN / FEVER, (Reported) Allergies Coded Allergies: Penicillins (Verified Allergy, Intermediate, swelling, 03/10/20) prednisone (Verified Adverse Reaction, Intermediate, tachycardia, 03/10/20) HEDY WIGGINS MD Aug 17, 2020 09:53
--- NOTE | 2020-08-18 09:38 | NOCOX ---
DATE OF SERVICE: 08/16/2020 - 08/17/2020 Nocturnal oximetry was performed initially starting on room air but shortly after was placed on 2 liters via nasal cannula. Resting oxygen saturation was 94%. While awake it is believed that the patient desaturated to 87% and oxygen was applied shortly after the study had started, that was within 5 minutes. While on oxygen for the majority of the study, oxygen saturation ranged 68% to 100%. Heart rate ranged 60-88. There was variable desaturations throughout the evening with a total time spent with an oxygen saturation less than 88% of 11 minutes and 56 seconds. The longest continuous time with an oxygen saturation less than 89% was 1 minute and 30 seconds. IMPRESSION: Variable desaturations with significant hypoxia. Recommend oxygen therapy at night. If there is concern for the possibility of obstructive sleep apnea would recommend formal in lab nocturnal polysomnogram.
== END 2020-08-17 16:38 | disposition home or self-care (01) | DRG 951 ==
LOC: M ED 12:42 → EDBD 12:42 → M ED INP 16:25 → M MSPAV 20:01
PROVIDERS: ADMIT General Practice; ATTEND General Practice
PROC: 0DH68UZ Insertion of Feeding Device into Stomach, Via Natural or Artificial Opening Endoscopic (ICD-10-PCS; principal; 2020-08-15 09:30)
DX: J69.0 Pneumonitis due to inhalation of food and vomit (principal); J96.01 Acute respiratory failure with hypoxia; I50.22 Chronic systolic (congestive) heart failure; J38.02 Paralysis of vocal cords and larynx, bilateral; I11.0 Hypertensive heart disease with heart failure; H05.011 Cellulitis of right orbit; Z86.73 Personal history of transient ischemic attack (TIA), and cerebral infarction without residual deficits; E78.5 Hyperlipidemia, unspecified; E55.9 Vitamin D deficiency, unspecified; M54.5 Low back pain; J45.909 Unspecified asthma, uncomplicated; K21.9 Gastro-esophageal reflux disease without esophagitis; E11.9 Type 2 diabetes mellitus without complications; I25.10 Atherosclerotic heart disease of native coronary artery without angina pectoris; Z95.2 Presence of prosthetic heart valve; F32.9 Major depressive disorder, single episode, unspecified; E03.9 Hypothyroidism, unspecified; F41.9 Anxiety disorder, unspecified; Z79.899 Other long term (current) drug therapy; Z79.82 Long term (current) use of aspirin; Z79.4 Long term (current) use of insulin; Z88.0 Allergy status to penicillin; Z88.8 Allergy status to other drugs, medicaments and biological substances

== ENCOUNTER → 2020-09-19 | Outpatient (REF) | payer OTHER, MEDICAID ==
[~2020-09-19] MED LIST changes: +ASPI-161 PO; +ASPI81CH33 PO; +FLOM0.4C39 PO; +MAXI0.1O OD; +METO50TA7 PO; +POTA20TA6 PO
[2020-09-19 15:47] LABS: BASO # 0.1 10^3/uL (0.0-0.2); BASO % 0.7 % (0.0-1.0); EOS # 0.2 10^3/uL (0.0-0.5); EOS % 1.7 % (0.0-3.0); HEMATOCRIT 38.8 % (36.0-47.0); HEMOGLOBIN 12.7 g/dl (12.0-15.5); LYMPH # 1.8 10^3/uL (1.5-5.0); LYMPH % 17.1 % (24.0-44.0); MEAN CORPUSCULAR HEMOGLOBIN 28.9 pg (27.0-33.0); MEAN CORPUSCULAR HGB CONC 32.7 g/dl (32.0-36.5); MEAN CORPUSCULAR VOLUME 88.4 fl (80.0-96.0); MONO # 1.3 10^3/uL (0.0-0.8); MONO % 12.1 % (0.0-5.0); NEUTROPHILS # 7.3 10^3/uL (1.5-8.5); NEUTROPHILS % 68.1 % (36.0-66.0); PLATELET COUNT, AUTOMATED 336 10^3/uL (150-450); RED BLOOD COUNT 4.39 10^6/uL (4.00-5.40); WHITE BLOOD COUNT 10.7 10^3/uL (4.0-10.0)
[2020-09-19 16:15] LABS: ALBUMIN 3.4 GM/DL (3.2-5.2); BILIRUBIN,TOTAL 0.3 MG/DL (0.2-1.0); CALCIUM LEVEL 10.2 MG/DL (8.5-10.1); CREATININE FOR GFR 1.6 MG/DL (0.55-1.30); GLOMERULAR FILTRATION RATE 35.8 (>51); TOTAL PROTEIN 8.3 GM/DL (6.4-8.2)
== END ==
LOC: M SFHCPLAZ 14:13
PROVIDERS: ATTEND Physician Assistant Medical
DX: J69.0 Pneumonitis due to inhalation of food and vomit (principal)

== ENCOUNTER → 2020-09-19 | Outpatient (CLI) | payer OTHER, MEDICAID ==
--- NOTE | 2020-09-20 05:44 | REPPI ---
INDICATION: ASPIRATION PNEUMONIA COMPARISON: 08/11/2020 TECHNIQUE: PA and lateral. FINDINGS: The mediastinum and cardiac silhouette are normal. Evidence for sternotomy and CABG. The lung jerome are clear and without acute consolidation, effusion, or pneumothorax. Previous infiltrates have resolved. The skeletal structures are intact and normal. IMPRESSION: No acute cardiopulmonary process. Previous infiltrates resolved. <Electronically signed by Jamie Fernandes > 09/20/20 [id number]
== END ==
LOC: M PLAIMG 14:14
PROVIDERS: ATTEND Physician Assistant Medical
DX: J69.0 Pneumonitis due to inhalation of food and vomit (principal)

== ENCOUNTER 2020-09-23 11:21 | Outpatient (RCR) | payer OTHER | END 2020-09-25 | LOC: M ST 11:21 | PROVIDERS: ATTEND Specialist | DX: R13.10 Dysphagia, unspecified (principal); F80.9 Developmental disorder of speech and language, unspecified ==

== ENCOUNTER → 2020-10-03 | Outpatient (REF) | payer OTHER, MEDICAID ==
[2020-10-03 19:24] LABS: APPEARANCE, URINE CLEAR (CLEAR); BACTERIA, URINE AUTO NEGATIVE (NEGATIVE); BILIRUBIN, URINE AUTO NEGATIVE (NEGATIVE); BLOOD, URINE BLOOD NEGATIVE (NEGATIVE); COLOR, URINE YELLOW (YELLOW); GLUCOSE, URINE (UA) AUTO NEGATIVE (NEGATIVE); KETONE, URINE AUTO NEGATIVE (NEGATIVE); LEUKOCYTE ESTERASE, URINE AUTO NEGATIVE (NEGATIVE); NITRITE, URINE AUTO NEGATIVE (NEGATIVE); PROTEIN, URINE AUTO 3+ mg/dL (NEGATIVE); RBC, URINE AUTO 1 /HPF (0-3); SPECIFIC GRAVITY URINE AUTO 1.011 (1.002-1.035); SQUAMOUS EPITHELIAL CELL UR AU 0 /HPF (0-6); UROBILINOGEN, URINE AUTO 0.2 mg/dL (0.0-2.0); WBC, URINE AUTO 1 /HPF (0-3)
== END ==
LOC: M SFHCPLAZ 17:11
PROVIDERS: ATTEND Physician Assistant Medical
DX: N31.9 Neuromuscular dysfunction of bladder, unspecified (principal)

== ENCOUNTER → 2020-10-11 | Outpatient (REF) | payer OTHER, MEDICAID ==
[2020-10-11 14:13] LABS: ALBUMIN 2.8 GM/DL (3.2-5.2); BILIRUBIN,TOTAL 0.1 MG/DL (0.2-1.0); CALCIUM LEVEL 9.1 MG/DL (8.5-10.1); CREATININE FOR GFR 1.36 MG/DL (0.55-1.30); GLOMERULAR FILTRATION RATE 43.1 (>51)
== END ==
LOC: M SFHCPLAZ 13:24
PROVIDERS: ATTEND Physician Assistant Medical
DX: N17.9 Acute kidney failure, unspecified (principal)

== ENCOUNTER → 2020-10-14 | Outpatient (CLI) | payer OTHER, MEDICAID ==
--- NOTE | 2020-10-14 18:19 | REP ---
INDICATION: N17.9 ACUTE KIDNEY INJURY. COMPARISON: None. TECHNIQUE: Acute kidney injury FINDINGS: The right kidney is 10.6 x 6.2 x 5.3 cm. The cortical thickness and echogenicity are normal. There is some sinus lipomatosis and echogenic vessels in the hilum. No hydronephrosis or hydroureter identified. No solid mass, cyst, calcification or perinephric fluid identified. Arcuate artery Doppler shows resistive index 0.74, towards the upper range of normal. The left kidney is 10.1 x 5.5 x 5.5 cm. Its cortical thickness and echogenicity are normal. There is some sinus lipomatosis and increased echogenicity in the vessels in the hilum. No hydronephrosis or hydroureter. See no solid or cystic mass, perinephric fluid or other significant finding. The bladder measured 7.2 x 87.1 x 7.9 cm with calculated volume 211 mL wall appears somewhat thickened at about 7 mm. The right ureteral jet was seen the left is not IMPRESSION: Kidney size, cortical thickness, echogenicity and contours are normal. There is some sinus lipomatosis and echogenic vessels in the hilum. No stone cyst solid mass or perinephric fluid Right ureteral jet observed, left not seen. Bladder with calculated volume 211 mL but wall somewhat thickened at 7 mm. No gross mass. <Electronically signed by Prosper Hendricks > 10/14/20 [id number]
== END ==
LOC: M WHC 10:08
PROVIDERS: ATTEND Physician Assistant Medical
DX: N17.9 Acute kidney failure, unspecified (principal)

== ENCOUNTER 2020-10-17 11:30 | Outpatient (RCR) | payer OTHER | END 2020-10-23 | LOC: M ST 11:30 | PROVIDERS: ATTEND Specialist | DX: R13.12 Dysphagia, oropharyngeal phase (principal) ==

== ENCOUNTER 2020-11-07 12:45 | Outpatient (RCR) | payer OTHER | END 2020-11-23 | LOC: M ST 12:45 | PROVIDERS: ATTEND Specialist | DX: R13.12 Dysphagia, oropharyngeal phase (principal); F80.9 Developmental disorder of speech and language, unspecified ==

== ENCOUNTER 2020-12-22 09:50 | Outpatient (RCR) | payer OTHER ==
--- NOTE | 2020-11-29 18:44 | REP ---
INDICATION: DYSPHAGIA. COMPARISON: None. TECHNIQUE: The procedure was performed by Donna Ibrahim [facility], under the direct supervision of Dr. Breaux. The procedure was performed with Angy Fletcher from speech pathology present. 5 ml aliquots of nectar thick, pudding, honey thick, soft food, hard food, applesauce, cereal with a honey thick consistency base and banana with a honey thick consistency base barium was administered. FINDINGS: Aspiration was visualized with nectar thick consistency barium. Penetration was visualized with honey thick consistency barium. The detailed report of this examination will be provided by speech pathology. IMPRESSION: Aspiration was visualized with nectar thick consistency barium, a detailed report will be provided by speech pathology. 2.9 minutes of fluoroscopy time was utilized for this procedure. Some fluoroscopic images are performed with last image hold technology. These images require no additional radiation <Electronically signed by Donna Ibrahim > 11/29/20 1421 <Electronically signed by Diego Breaux > 11/29/20 [id number]
[~2020-12-22 09:50] MED LIST changes: +BARIUM SULFATE 700 MG TABLET (E-Z-DISK) As Ordered ONE; +E-Z-PAQUE 96% w/w SUSP 176GM BTL As Ordered ONE; +VARIBAR NECTAR 40% w/v 240ML SUSP BTL As Ordered ONE; +VARIBAR PUDDING 40% w/v 230ML TUBE As Ordered ONE
== END 2020-12-23 ==
LOC: M PT 09:50
PROVIDERS: ATTEND Specialist
DX: R13.12 Dysphagia, oropharyngeal phase (principal); I69.359 Hemiplegia and hemiparesis following cerebral infarction affecting unspecified side

== ENCOUNTER 2021-01-10 11:00 | Outpatient (RCR) | payer OTHER | END 2021-01-23 | LOC: M ST 11:00 | PROVIDERS: ATTEND Specialist | DX: I69.391 Dysphagia following cerebral infarction (principal); R13.12 Dysphagia, oropharyngeal phase ==

== ENCOUNTER → 2021-01-10 | Outpatient (REF) | payer OTHER, MEDICAID ==
[~2021-01-10] MED LIST changes: -BARIUM SULFATE 700 MG TABLET (E-Z-DISK) As Ordered ONE; -E-Z-PAQUE 96% w/w SUSP 176GM BTL As Ordered ONE; -VARIBAR NECTAR 40% w/v 240ML SUSP BTL As Ordered ONE; -VARIBAR PUDDING 40% w/v 230ML TUBE As Ordered ONE
[2021-01-10 18:39] LABS: BILIRUBIN,TOTAL 0.4 MG/DL (0.2-1.0); CALCIUM LEVEL 9.2 MG/DL (8.5-10.1); CREATININE FOR GFR 1.73 MG/DL (0.55-1.30); GLOMERULAR FILTRATION RATE 32.7 (>51); POTASSIUM SERUM 4.7 MEQ/L (3.5-5.1); TOTAL PROTEIN 7.3 GM/DL (6.4-8.2)
== END ==
LOC: M SFHCPLAZ 15:40
PROVIDERS: ATTEND Physician Assistant Medical
DX: N17.9 Acute kidney failure, unspecified (principal)

== ENCOUNTER 2021-02-21 10:00 | Outpatient (RCR) | payer OTHER ==
[~2021-02-21 10:00] MED LIST changes: +ERGO500029; +ERGO500029 PO; -VITA50005; -VITA50005 PO
== END 2021-02-22 ==
LOC: M PT 10:00
PROVIDERS: ATTEND Specialist
DX: R13.12 Dysphagia, oropharyngeal phase (principal)

== ENCOUNTER 2021-03-08 10:41 | Outpatient (RCR) | payer OTHER ==
[~2021-03-08 10:41] MED LIST changes: -LISI20TA20; -LISI20TA20 PO; +LISI20TA37; +LISI20TA37 PO; +POTA-151 PO; -POTA20TA6 PO
== END 2021-03-25 ==
LOC: M PT 10:41
PROVIDERS: ATTEND Specialist
DX: R13.10 Dysphagia, unspecified (principal)

== ENCOUNTER 2022-03-14 18:13 | Emergency (ER) | payer OTHER ==
[~2022-03-14] VITALS: Ht 162.6 cm; Wt 102.7 kg
[~2022-03-14 18:13] MED LIST changes: -BUPR-69 PO; -TORS10TA3 PO
[2022-03-14] MEDS ORDERED: BUPR-69 PO (18:23)
[2022-03-15 02:36] VITALS: BP 198/98
[2022-03-15] MEDS ORDERED: TORS10TA3 PO (12:51)
== END 2022-03-15 05:07 | disposition left against medical advice (07) ==
LOC: M ED 18:13
DX: Z53.21 Procedure and treatment not carried out due to patient leaving prior to being seen by health care provider (principal)

== ENCOUNTER → 2022-03-14 | Outpatient (CLI) | payer OTHER ==
[~2022-03-14] MED LIST changes: +BUPR-69 PO; +TORS10TA3 PO
[2022-03-14 15:23] LABS: BASO # 0.1 10^3/uL (0.0-0.2); BASO % 0.9 % (0.0-1.0); EOS # 0.4 10^3/uL (0.0-0.5); EOS % 5.4 % (0.0-3.0); HEMATOCRIT 29.5 % (36.0-47.0); HEMOGLOBIN 8.8 g/dl (12.0-15.5); LYMPH # 0.9 10^3/uL (1.5-5.0); LYMPH % 12.6 % (24.0-44.0); MEAN CORPUSCULAR HEMOGLOBIN 29.8 pg (27.0-33.0); MEAN CORPUSCULAR HGB CONC 29.8 g/dl (32.0-36.5); MONO # 0.8 10^3/uL (0.0-0.8); MONO % 11.6 % (2.0-8.0); NEUTROPHILS # 4.8 10^3/uL (1.5-8.5); NEUTROPHILS % 69.2 % (36.0-66.0); PLATELET COUNT, AUTOMATED 286 10^3/uL (150-450); RED BLOOD COUNT 2.95 10^6/uL (4.00-5.40); WHITE BLOOD COUNT 6.9 10^3/uL (4.0-10.0)
[2022-03-14 16:08] LABS: ALBUMIN 2.4 GM/DL (3.2-5.2); BILIRUBIN,TOTAL 0.4 MG/DL (0.2-1.0); CALCIUM LEVEL 9.1 MG/DL (8.5-10.1); CHOLESTEROL RISK RATIO 1.75 (<5); CREATININE FOR GFR 3.07 MG/DL (0.55-1.30); FREE T4 0.85 NG/DL (0.76-1.46); GLOMERULAR FILTRATION RATE 16.7 (>51); POTASSIUM SERUM 4.2 MEQ/L (3.5-5.1); THYROID STIMULATING HORMONE 4.75 uIU/ML (0.358-3.740); TOTAL PROTEIN 6.4 GM/DL (6.4-8.2)
[2022-03-14 16:14] LABS: HEMOGLOBIN A1c 6.1 %
== END ==
LOC: M PLALAB 13:05
PROVIDERS: ATTEND Physician Assistant Medical
DX: I10 Essential (primary) hypertension (principal); N17.9 Acute kidney failure, unspecified; E11.40 Type 2 diabetes mellitus with diabetic neuropathy, unspecified; F33.0 Major depressive disorder, recurrent, mild; I63.012 Cerebral infarction due to thrombosis of left vertebral artery

== ENCOUNTER 2022-03-15 12:35 | Inpatient (IN) | payer OTHER ==
[~2022-03-15] VITALS: Ht 162.6 cm; Wt 97.7 kg
[~2022-03-15 12:35] MED LIST changes: +BUPR-69 PO
[2022-03-15] MEDS ORDERED: TORS10TA3 PO (12:51)
[2022-03-15 16:45] LABS: VENOUS BASE EXCESS -1.6 (-2.0-2.0); VENOUS HCO3 24.4 MEQ/L (23.0-27.0); VENOUS O2 SATURATION 99.1 % (60.0-80.0); VENOUS PARTIAL PRESSURE CO2 46.4 mmHg (38.0-50.0); VENOUS PARTIAL PRESSURE O2 142.6 mmHg (30.0-50.0); VENOUS PH 7.338 UNITS (7.330-7.430); VENOUS STANDARD HCO3 23.2 MEQ/L; VENOUS TOTAL CO2 25.8 MEQ/L (24.0-28.0)
[2022-03-15] MEDS ORDERED: hydrALAZINE 20MG/ML 1ML VIAL (J0360 PER 20MG) IV STA (17:13)
[2022-03-15 17:37] LABS: ALBUMIN 2.1 GM/DL (3.2-5.2); ALT/SGPT 15 U/L (12-78); BILIRUBIN,DIRECT < 0.1 MG/DL (0.0-0.2); BILIRUBIN,TOTAL 0.4 MG/DL (0.2-1.0); BLOOD UREA NITROGEN 48 MG/DL (7-18); CALCIUM LEVEL 8.4 MG/DL (8.5-10.1); CARBON DIOXIDE LEVEL 23 MEQ/L (21-32); CHLORIDE LEVEL 113 MEQ/L (98-107); CREATININE FOR GFR 3.08 MG/DL (0.55-1.30); GLOMERULAR FILTRATION RATE 16.7 (>51); GLUCOSE, FASTING 142 MG/DL (70-100); MAGNESIUM LEVEL 2.1 MG/DL (1.8-2.4); NT-PRO BNP 8128 PG/ML (<125); OSMOLALITY SERUM 307 MOSM/KG (275-295); POTASSIUM SERUM 4.6 MEQ/L (3.5-5.1); SODIUM LEVEL 143 MEQ/L (136-145); TOTAL PROTEIN 6.3 GM/DL (6.4-8.2); URIC ACID 6.1 MG/DL (2.6-6.0)
[2022-03-15] MEDS ORDERED: DEXTROSE 50% 50 ML SYRINGE IV PRN (18:30)
[2022-03-15] MEDS ORDERED: GLUCAGON INJ 1MG VIAL SC PRN (18:30)
[2022-03-15] MEDS ORDERED: GLUCOSE 4GM CHEW TABLET PO PRN (18:30)
[2022-03-15] MEDS ORDERED: HOME MED LIST COMPLETE! XX SCH (18:55)
[2022-03-15 19:48] LABS: HEMATOCRIT 27.3 % (36.0-47.0); HEMOGLOBIN 8.5 g/dl (12.0-15.5); MEAN CORPUSCULAR HEMOGLOBIN 30.8 pg (27.0-33.0); MEAN CORPUSCULAR HGB CONC 31.1 g/dl (32.0-36.5); MEAN CORPUSCULAR VOLUME 98.9 fl (80.0-96.0); PLATELET COUNT, AUTOMATED 285 10^3/uL (150-450); RED BLOOD COUNT 2.76 10^6/uL (4.00-5.40)
[2022-03-15 20:30] LABS: FREE T4 0.78 NG/DL (0.76-1.46); THYROID STIMULATING HORMONE 4.15 uIU/ML (0.358-3.740)
[2022-03-15 20:32] LABS: PERCENT SATURATION 18.2 % (13.2-45.0)
[2022-03-15 20:51] LABS: RSV AMPLIFICATION NEGATIVE (NEGATIVE)
[2022-03-15] MEDS: LEVEMIR (INSULIN DETEMIR) 1 UNITS/0.01ML SC SCH (21:00)
[2022-03-15] MEDS: INSULIN LISPRO (NovoLOG) PER UNIT SC SCH (21:00)
[2022-03-15] MEDS: FUROSEMIDE 40MG/4ML VIAL (J1940) IV SCH (21:57)
[2022-03-15] MEDS: ATORVASTATIN 20 MG TAB PO SCH (21:57)
[2022-03-15] MEDS: EZETIMIBE 10MG TABLET (ZETIA) PO SCH (21:57)
[2022-03-15] MEDS: HEPARIN SOD (PORCINE) 5000UNITS/ML 1ML VIAL/SYRINGE SC SCH (21:58)
[2022-03-15] MEDS: buPROPion 100 MG TAB PO SCH (23:08)
[2022-03-16] MEDS ORDERED: cloNIDine 0.2 MG TAB PO ONE
[2022-03-16] MEDS ORDERED: **hydrALAZINE** 50 MG TAB PO PRN
[2022-03-16] MEDS: FUROSEMIDE 40MG/4ML VIAL (J1940) IV SCH ×4 (03:44→22:20)
[2022-03-16 04:11] LABS: APPEARANCE, URINE CLEAR (CLEAR); BACTERIA, URINE AUTO 1+ (NEGATIVE); BILIRUBIN, URINE AUTO NEGATIVE (NEGATIVE); BLOOD, URINE BLOOD 1+ (NEGATIVE); COLOR, URINE YELLOW (YELLOW); GLUCOSE, URINE (UA) AUTO 3+ mg/dL (NEGATIVE); KETONE, URINE AUTO NEGATIVE (NEGATIVE); LEUKOCYTE ESTERASE, URINE AUTO NEGATIVE (NEGATIVE); MUCUS, URINE SMALL (NEGATIVE); NITRITE, URINE AUTO NEGATIVE (NEGATIVE); PROTEIN, URINE AUTO 3+ mg/dL (NEGATIVE); RBC, URINE AUTO 1 /HPF (0-3); SQUAMOUS EPITHELIAL CELL UR AU 1 /HPF (0-6); UROBILINOGEN, URINE AUTO 0.2 mg/dL (0.0-2.0); WBC, URINE AUTO 5 /HPF (0-3)
[2022-03-16 04:27] LABS: OSMOLALITY URINE 368 MOSM/KG (50-1400)
[2022-03-16 05:05] LABS: CREATININE,RANDOM URINE 42.8 MG/DL; POTASSIUM RANDOM URINE 15.1 MEQ/L; SODIUM,RANDOM URINE 96 MEQ/L
[2022-03-16 05:59] LABS: HEMATOCRIT 25.8 % (36.0-47.0); HEMOGLOBIN 7.8 g/dl (12.0-15.5); MEAN CORPUSCULAR HEMOGLOBIN 30.1 pg (27.0-33.0); MEAN CORPUSCULAR HGB CONC 30.2 g/dl (32.0-36.5); MEAN CORPUSCULAR VOLUME 99.6 fl (80.0-96.0); PLATELET COUNT, AUTOMATED 255 10^3/uL (150-450); RED BLOOD COUNT 2.59 10^6/uL (4.00-5.40); WHITE BLOOD COUNT 7.7 10^3/uL (4.0-10.0)
[2022-03-16 06:21] LABS: CALCIUM LEVEL 8.2 MG/DL (8.5-10.1); CREATININE FOR GFR 3.23 MG/DL (0.55-1.30); GLOMERULAR FILTRATION RATE 15.8 (>51); MAGNESIUM LEVEL 2.2 MG/DL (1.8-2.4); PHOSPHORUS LEVEL 4.6 MG/DL (2.5-4.9); POTASSIUM SERUM 4.2 MEQ/L (3.5-5.1)
[2022-03-16] MEDS: LEVOTHYROXINE 25MCG TABLET (0.025MG) PO SCH (06:47)
[2022-03-16] MEDS: HEPARIN SOD (PORCINE) 5000UNITS/ML 1ML VIAL/SYRINGE SC SCH ×3 (07:06→22:09)
[2022-03-16 10:15] VITALS: BP 167/61
[2022-03-16] MEDS: **hydrALAZINE** 50 MG TAB PO SCH ×4 (10:31→22:09)
[2022-03-16] MEDS: INSULIN LISPRO (NovoLOG) PER UNIT SC SCH ×4 (10:31→22:08)
[2022-03-16] MEDS: ASPIRIN 81MG ENTERIC TABLET PO SCH (10:36)
[2022-03-16] MEDS: CLOPIDOGREL 75 MG TAB PO SCH (10:36)
[2022-03-16] MEDS: TAMSULOSIN 0.4 MG CAP PO SCH (10:37)
[2022-03-16] MEDS: buPROPion 100 MG TAB PO SCH ×2 (10:55→22:07)
[2022-03-16 12:05] LABS: FOLATE 6.4 NG/ML (>5.4)
[2022-03-16] MEDS ORDERED: MAALOX 30 ML SUSP *UDC PO ONE (17:30)
[2022-03-16 22:00] VITALS: BP 140/70
[2022-03-16] MEDS: EZETIMIBE 10MG TABLET (ZETIA) PO SCH (22:07)
[2022-03-16] MEDS: LEVEMIR (INSULIN DETEMIR) 1 UNITS/0.01ML SC SCH (22:08)
[2022-03-16] MEDS: ATORVASTATIN 20 MG TAB PO SCH (22:08)
[2022-03-17] MEDS: FUROSEMIDE 40MG/4ML VIAL (J1940) IV SCH ×2 (02:59→08:45)
[2022-03-17 06:00] VITALS: BP 118/48
[2022-03-17] MEDS: LEVOTHYROXINE 25MCG TABLET (0.025MG) PO SCH (06:02)
[2022-03-17] MEDS: HEPARIN SOD (PORCINE) 5000UNITS/ML 1ML VIAL/SYRINGE SC SCH ×3 (06:03→21:37)
[2022-03-17] MEDS: ASPIRIN 81MG ENTERIC TABLET PO SCH (08:45)
[2022-03-17] MEDS: TAMSULOSIN 0.4 MG CAP PO SCH (08:45)
[2022-03-17] MEDS: INSULIN LISPRO (NovoLOG) PER UNIT SC SCH ×4 (08:45→21:00)
[2022-03-17] MEDS: **hydrALAZINE** 50 MG TAB PO SCH ×3 (08:45→21:40)
[2022-03-17 08:47] LABS: HEMATOCRIT 26.1 % (36.0-47.0); HEMOGLOBIN 7.9 g/dl (12.0-15.5); MEAN CORPUSCULAR HEMOGLOBIN 30.4 pg (27.0-33.0); MEAN CORPUSCULAR HGB CONC 30.3 g/dl (32.0-36.5); MEAN CORPUSCULAR VOLUME 100.4 fl (80.0-96.0); PLATELET COUNT, AUTOMATED 276 10^3/uL (150-450); WHITE BLOOD COUNT 6.9 10^3/uL (4.0-10.0)
[2022-03-17] MEDS: buPROPion 100 MG TAB PO SCH ×2 (08:47→21:37)
[2022-03-17] MEDS: CLOPIDOGREL 75 MG TAB PO SCH (09:01)
[2022-03-17 09:23] LABS: CALCIUM LEVEL 8.4 MG/DL (8.5-10.1); CREATININE FOR GFR 3.53 MG/DL (0.55-1.30); GLOMERULAR FILTRATION RATE 14.2 (>51); MAGNESIUM LEVEL 2.3 MG/DL (1.8-2.4); POTASSIUM SERUM 4.5 MEQ/L (3.5-5.1)
[2022-03-17] MEDS: FOLIC ACID 1MG TAB PO SCH (12:34)
[2022-03-17] MEDS: CYANOCOBALAMIN 500 MCG TAB PO SCH (12:35)
[2022-03-17 14:00] VITALS: BP 129/59
[2022-03-17] MEDS: FUROSEMIDE 100MG/10ML VIAL (J1940) IV SCH (17:38)
[2022-03-17] MEDS ORDERED: LEVEMIR (INSULIN DETEMIR) 1 UNITS/0.01ML SC SCH (21:00)
[2022-03-17] MEDS: ATORVASTATIN 20 MG TAB PO SCH (21:37)
[2022-03-17] MEDS: EZETIMIBE 10MG TABLET (ZETIA) PO SCH (21:37)
[2022-03-17 22:00] VITALS: BP 131/51
[2022-03-18] MEDS: FUROSEMIDE 100MG/10ML VIAL (J1940) IV SCH ×3 (00:07→10:49)
[2022-03-18] MEDS ORDERED: OMEPRAZOLE 20MG CAP PO ONE (01:15)
[2022-03-18] MEDS: traMADol 50 MG TAB PO PRN ×2 (04:39→15:25)
[2022-03-18] MEDS: HEPARIN SOD (PORCINE) 5000UNITS/ML 1ML VIAL/SYRINGE SC SCH (05:13)
[2022-03-18] MEDS: LEVOTHYROXINE 25MCG TABLET (0.025MG) PO SCH (05:13)
[2022-03-18 06:00] VITALS: BP 137/75
[2022-03-18 06:13] LABS: HEMATOCRIT 24.6 % (36.0-47.0); HEMOGLOBIN 7.5 g/dl (12.0-15.5); MEAN CORPUSCULAR HGB CONC 30.5 g/dl (32.0-36.5); MEAN CORPUSCULAR VOLUME 101.7 fl (80.0-96.0); PLATELET COUNT, AUTOMATED 261 10^3/uL (150-450); RED BLOOD COUNT 2.42 10^6/uL (4.00-5.40); WHITE BLOOD COUNT 7.3 10^3/uL (4.0-10.0)
[2022-03-18 06:44] LABS: CALCIUM LEVEL 8.2 MG/DL (8.5-10.1); CREATININE FOR GFR 3.81 MG/DL (0.55-1.30); MAGNESIUM LEVEL 2.2 MG/DL (1.8-2.4); PERCENT SATURATION 23.5 % (13.2-45.0); PHOSPHORUS LEVEL 4.9 MG/DL (2.5-4.9); POTASSIUM SERUM 4.5 MEQ/L (3.5-5.1)
[2022-03-18] MEDS: INSULIN LISPRO (NovoLOG) PER UNIT SC SCH ×4 (07:30→21:00)
[2022-03-18] MEDS: ASPIRIN 81MG ENTERIC TABLET PO SCH (10:33)
[2022-03-18] MEDS: FOLIC ACID 1MG TAB PO SCH (10:33)
[2022-03-18] MEDS: **hydrALAZINE** 50 MG TAB PO SCH ×3 (10:33→21:21)
[2022-03-18] MEDS: buPROPion 100 MG TAB PO SCH ×2 (10:33→21:21)
[2022-03-18] MEDS: TAMSULOSIN 0.4 MG CAP PO SCH (10:33)
[2022-03-18] MEDS: CLOPIDOGREL 75 MG TAB PO SCH (10:34)
[2022-03-18] MEDS: CYANOCOBALAMIN 500 MCG TAB PO SCH (10:34)
[2022-03-18] MEDS ORDERED: TORSEMIDE 100 MG TAB PO ONE (11:30)
[2022-03-18] MEDS ORDERED: metOLazone 5 MG TAB PO ONE (11:30)
[2022-03-18] MEDS ORDERED: HEPARIN SOD (PORCINE) 5000UNITS/ML 1ML VIAL/SYRINGE IV PRN (12:50)
[2022-03-18] MEDS ORDERED: FERRIC CARBOXYMALTOSE INJ 750 MG, VIAL MATE ADAPTER 1 EACH in NS 250 ML IV ONE (13:00)
[2022-03-18] MEDS: PANTOPRAZOLE 20 MG TAB PO SCH (13:11)
[2022-03-18 13:15] LABS: HEMATOCRIT 24.6 % (36.0-47.0); HEMOGLOBIN 7.6 g/dl (12.0-15.5); MEAN CORPUSCULAR HEMOGLOBIN 31.1 pg (27.0-33.0); MEAN CORPUSCULAR HGB CONC 30.9 g/dl (32.0-36.5); MEAN CORPUSCULAR VOLUME 100.8 fl (80.0-96.0); PLATELET COUNT, AUTOMATED 267 10^3/uL (150-450); RED BLOOD COUNT 2.44 10^6/uL (4.00-5.40); WHITE BLOOD COUNT 6.9 10^3/uL (4.0-10.0)
[2022-03-18] MEDS ORDERED: HEPARIN SOD (PORCINE) 5000UNITS/ML 1ML VIAL/SYRINGE IV ONE (14:00)
[2022-03-18] MEDS ORDERED: LIDOCAINE 1% MDV 20ML VIAL SC ONE (14:30)
[2022-03-18] MEDS ORDERED: LIDOCAINE 1% MDV 20ML VIAL As Ordered ONE (14:33)
[2022-03-18 15:10] VITALS: BP 136/65
[2022-03-18] MEDS: FUROSEMIDE injection 250 MG in D5W 225 ML IV SCH (15:14)
[2022-03-18] MEDS: HEPARIN DRIP 25,000 UNITS in IV 1 EA IV SCH (15:16)
[2022-03-18 17:24] LABS: CALCIUM LEVEL 8.4 MG/DL (8.5-10.1); CREATININE FOR GFR 3.92 MG/DL (0.55-1.30); GLOMERULAR FILTRATION RATE 12.6 (>51); POTASSIUM SERUM 4.4 MEQ/L (3.5-5.1)
[2022-03-18 19:21] VITALS: BP 132/61
[2022-03-18] MEDS: ATORVASTATIN 20 MG TAB PO SCH (21:21)
[2022-03-18] MEDS: EZETIMIBE 10MG TABLET (ZETIA) PO SCH (21:21)
[2022-03-18 21:28] LABS: HEMOGLOBIN 7.4 g/dl (12.0-15.5)
[2022-03-18 23:33] VITALS: BP 134/60
[2022-03-19] VITALS (8 sets, daily range): BP systolic 122–166; BP diastolic 55–72
[2022-03-19] MEDS: FUROSEMIDE injection 250 MG in D5W 225 ML IV SCH ×5 (00:30→21:40)
[2022-03-19 05:46] LABS: HEMOGLOBIN 7.4 g/dl (12.0-15.5); MEAN CORPUSCULAR HEMOGLOBIN 30.2 pg (27.0-33.0); MEAN CORPUSCULAR HGB CONC 29.6 g/dl (32.0-36.5); PLATELET COUNT, AUTOMATED 255 10^3/uL (150-450); RED BLOOD COUNT 2.45 10^6/uL (4.00-5.40); WHITE BLOOD COUNT 7.1 10^3/uL (4.0-10.0)
[2022-03-19 06:09] LABS: CALCIUM LEVEL 8.4 MG/DL (8.5-10.1); CREATININE FOR GFR 4.42 MG/DL (0.55-1.30); MAGNESIUM LEVEL 2.2 MG/DL (1.8-2.4); PHOSPHORUS LEVEL 5.4 MG/DL (2.5-4.9); POTASSIUM SERUM 4.5 MEQ/L (3.5-5.1)
[2022-03-19] MEDS: LEVOTHYROXINE 25MCG TABLET (0.025MG) PO SCH (06:14)
[2022-03-19] MEDS: buPROPion 100 MG TAB PO SCH ×2 (08:13→08:14)
[2022-03-19] MEDS: ASPIRIN 81MG ENTERIC TABLET PO SCH (08:13)
[2022-03-19] MEDS: PANTOPRAZOLE 20 MG TAB PO SCH (08:14)
[2022-03-19] MEDS: traMADol 50 MG TAB PO PRN ×2 (08:14→16:06)
[2022-03-19] MEDS: CYANOCOBALAMIN 500 MCG TAB PO SCH (08:15)
[2022-03-19] MEDS: TAMSULOSIN 0.4 MG CAP PO SCH (08:15)
[2022-03-19] MEDS: FOLIC ACID 1MG TAB PO SCH (08:15)
[2022-03-19] MEDS: CLOPIDOGREL 75 MG TAB PO SCH (08:15)
[2022-03-19] MEDS: INSULIN LISPRO (NovoLOG) PER UNIT SC SCH ×4 (08:16→20:03)
[2022-03-19] MEDS: **hydrALAZINE** 50 MG TAB PO SCH ×3 (08:25→20:11)
[2022-03-19] MEDS ORDERED: metOLazone 5 MG TAB PO ONE (09:30)
[2022-03-19] MEDS: DARBEPOETIN 100 MCG/0.5 ML *NON-DIALYSIS* SYRINGE (J0881) SC SCH (09:44)
[2022-03-19 11:25] LABS: PTH INTACT 129.5 PG/ML (18.5-88.0); TOTAL 25(OH) VITAMIN D 18.1 NG/ML (30.0-100.0)
[2022-03-19 12:27] LABS: INR 1.07; PROTHROMBIN TIME 14.3 SECONDS (12.7-14.5)
[2022-03-19 12:28] LABS: PARTIAL THROMBOPLASTIN TIME 49.6 SECONDS (25.9-37.0)
[2022-03-19 19:24] LABS: HEMATOCRIT 27.8 % (36.0-47.0); HEMOGLOBIN 8.5 g/dl (12.0-15.5); MEAN CORPUSCULAR HEMOGLOBIN 30.7 pg (27.0-33.0); MEAN CORPUSCULAR HGB CONC 30.6 g/dl (32.0-36.5); MEAN CORPUSCULAR VOLUME 100.4 fl (80.0-96.0); PLATELET COUNT, AUTOMATED 239 10^3/uL (150-450); RED BLOOD COUNT 2.77 10^6/uL (4.00-5.40); WHITE BLOOD COUNT 10.7 10^3/uL (4.0-10.0)
[2022-03-19 19:41] LABS: INR 1.05; PROTHROMBIN TIME 14.1 SECONDS (12.7-14.5)
[2022-03-19 19:42] LABS: PARTIAL THROMBOPLASTIN TIME 51.7 SECONDS (25.9-37.0)
[2022-03-19] MEDS: ATORVASTATIN 20 MG TAB PO SCH (20:11)
[2022-03-19] MEDS: EZETIMIBE 10MG TABLET (ZETIA) PO SCH (20:11)
[2022-03-19] MEDS: POLYSPORIN OPHTH OINT 3.5 GM OD SCH (20:12)
[2022-03-19] MEDS: HEPARIN DRIP 25,000 UNITS in IV 1 EA IV SCH (22:51)
[2022-03-19] MEDS: ACETAMINOPHEN TAB 650MG DOSE (2X325MG) PO PRN (22:52)
[2022-03-20] VITALS: BP 110/58
[2022-03-20 02:33] LABS: INR 1.04
[2022-03-20 02:34] LABS: PARTIAL THROMBOPLASTIN TIME 53.3 SECONDS (25.9-37.0)
[2022-03-20] MEDS: traMADol 50 MG TAB PO PRN ×3 (02:49→22:41)
[2022-03-20 03:35] VITALS: BP 141/64
[2022-03-20] MEDS: FUROSEMIDE injection 250 MG in D5W 225 ML IV SCH ×4 (03:44→22:31)
[2022-03-20] MEDS: LEVOTHYROXINE 25MCG TABLET (0.025MG) PO SCH (05:18)
[2022-03-20 05:33] LABS: HEMATOCRIT 27.5 % (36.0-47.0); HEMOGLOBIN 8.3 g/dl (12.0-15.5); MEAN CORPUSCULAR HEMOGLOBIN 30.3 pg (27.0-33.0); MEAN CORPUSCULAR HGB CONC 30.2 g/dl (32.0-36.5); MEAN CORPUSCULAR VOLUME 100.4 fl (80.0-96.0); PLATELET COUNT, AUTOMATED 230 10^3/uL (150-450); RED BLOOD COUNT 2.74 10^6/uL (4.00-5.40); WHITE BLOOD COUNT 9.4 10^3/uL (4.0-10.0)
[2022-03-20 06:50] LABS: CREATININE FOR GFR 4.74 MG/DL (0.55-1.30); GLOMERULAR FILTRATION RATE 10.1 (>51)
[2022-03-20 06:51] LABS: CALCIUM LEVEL 8.5 MG/DL (8.5-10.1)
[2022-03-20 07:42] VITALS: BP 124/58
[2022-03-20] MEDS: **hydrALAZINE** 50 MG TAB PO SCH ×3 (08:01→20:36)
[2022-03-20] MEDS: POLYSPORIN OPHTH OINT 3.5 GM OD SCH ×2 (08:09→20:37)
[2022-03-20] MEDS: INSULIN LISPRO (NovoLOG) PER UNIT SC SCH ×4 (08:09→20:37)
[2022-03-20] MEDS: TAMSULOSIN 0.4 MG CAP PO SCH (08:10)
[2022-03-20] MEDS: CLOPIDOGREL 75 MG TAB PO SCH (08:10)
[2022-03-20] MEDS: buPROPion 100 MG TAB PO SCH ×2 (08:10→20:35)
[2022-03-20] MEDS: FOLIC ACID 1MG TAB PO SCH (08:10)
[2022-03-20] MEDS: PANTOPRAZOLE 20 MG TAB PO SCH (08:10)
[2022-03-20] MEDS: CYANOCOBALAMIN 500 MCG TAB PO SCH (08:10)
[2022-03-20] MEDS: ASPIRIN 81MG ENTERIC TABLET PO SCH (08:10)
[2022-03-20] MEDS: ACETAMINOPHEN TAB 650MG DOSE (2X325MG) PO PRN ×2 (08:37→20:36)
[2022-03-20] MEDS ORDERED: metOLazone 5 MG TAB PO ONE (10:05)
[2022-03-20] MEDS: VITAMIN D 1,000 INTERNATIONAL UNITS TABLET PO SCH (11:33)
[2022-03-20 11:53] VITALS: BP 132/60
[2022-03-20 15:42] VITALS: BP 143/81
[2022-03-20 20:00] VITALS: BP 145/65
[2022-03-20] MEDS: EZETIMIBE 10MG TABLET (ZETIA) PO SCH (20:35)
[2022-03-20] MEDS: ATORVASTATIN 20 MG TAB PO SCH (20:35)
[2022-03-20] MEDS: HEPARIN DRIP 25,000 UNITS in IV 1 EA IV SCH (22:32)
[2022-03-21] VITALS: BP 114/58
[2022-03-21 04:00] VITALS: BP 130/59
[2022-03-21 04:47] LABS: HEMATOCRIT 27.9 % (36.0-47.0); HEMOGLOBIN 8.3 g/dl (12.0-15.5); MEAN CORPUSCULAR HGB CONC 29.7 g/dl (32.0-36.5); MEAN CORPUSCULAR VOLUME 100.7 fl (80.0-96.0); PLATELET COUNT, AUTOMATED 246 10^3/uL (150-450); RED BLOOD COUNT 2.77 10^6/uL (4.00-5.40); WHITE BLOOD COUNT 9.9 10^3/uL (4.0-10.0)
[2022-03-21] MEDS: FUROSEMIDE injection 250 MG in D5W 225 ML IV SCH (04:47)
[2022-03-21 05:38] LABS: CALCIUM LEVEL 8.5 MG/DL (8.5-10.1); CREATININE FOR GFR 4.9 MG/DL (0.55-1.30); GLOMERULAR FILTRATION RATE 9.8 (>51); POTASSIUM SERUM 5.2 MEQ/L (3.5-5.1)
[2022-03-21] MEDS: LEVOTHYROXINE 25MCG TABLET (0.025MG) PO SCH (06:23)
[2022-03-21] MEDS: INSULIN LISPRO (NovoLOG) PER UNIT SC SCH ×4 (07:30→20:37)
[2022-03-21 07:33] VITALS: BP 142/62
[2022-03-21] MEDS: buPROPion 100 MG TAB PO SCH ×2 (08:08→20:48)
[2022-03-21] MEDS: TAMSULOSIN 0.4 MG CAP PO SCH (08:08)
[2022-03-21] MEDS: ASPIRIN 81MG ENTERIC TABLET PO SCH (08:08)
[2022-03-21] MEDS: FOLIC ACID 1MG TAB PO SCH (08:08)
[2022-03-21] MEDS: PANTOPRAZOLE 20 MG TAB PO SCH (08:08)
[2022-03-21] MEDS: CLOPIDOGREL 75 MG TAB PO SCH (08:08)
[2022-03-21] MEDS: **hydrALAZINE** 50 MG TAB PO SCH ×3 (08:09→20:49)
[2022-03-21] MEDS: CYANOCOBALAMIN 500 MCG TAB PO SCH (08:09)
[2022-03-21] MEDS: POLYSPORIN OPHTH OINT 3.5 GM OD SCH ×2 (08:09→20:49)
[2022-03-21] MEDS: VITAMIN D 1,000 INTERNATIONAL UNITS TABLET PO SCH (08:09)
[2022-03-21] MEDS: traMADol 50 MG TAB PO PRN ×2 (08:35→20:48)
[2022-03-21 10:33] LABS: HEPATITIS B CORE ANTIBODY IGM NEGATIVE (NEGATIVE); HEPATITIS B SURFACE ANTIBODY POSITIVE (POSITIVE); HEPATITIS B SURFACE ANTIGEN NEGATIVE (NEGATIVE); HEPATITIS C VIRUS ABY INDEX 0.2 INDEX (<0.8)
[2022-03-21] MEDS ORDERED: fentaNYL 100 MCG/2 ML INJECTION As Ordered ONE (11:13)
[2022-03-21] MEDS ORDERED: MIDAZOLAM INJ 2MG/2ML VIAL (J2250 PER 1MG) As Ordered ONE (11:14)
[2022-03-21] MEDS ORDERED: ISOVUE-300 61% 50ML VIAL As Ordered ONE (11:14)
[2022-03-21] MEDS ORDERED: LIDOCAINE 1% MDV 20ML VIAL As Ordered ONE (11:14)
[2022-03-21] MEDS ORDERED: VANCOMYCIN HCL 1,000 MG, VIAL MATE ADAPTER 1 EACH in D5W 250 ML IV ONE (11:30)
[2022-03-21] MEDS ORDERED: VANCOMYCIN 1000MG/20ML VIAL As Ordered ONE (11:36)
[2022-03-21 15:05] VITALS: BP 160/73
[2022-03-21] MEDS: HEPARIN SOD (PORCINE) 5000UNITS/ML 1ML VIAL/SYRINGE SQ SCH ×2 (15:24→20:48)
[2022-03-21 16:56] VITALS: BP 170/76
[2022-03-21 20:00] VITALS: BP 141/68
[2022-03-21] MEDS: ATORVASTATIN 20 MG TAB PO SCH (20:48)
[2022-03-21] MEDS: EZETIMIBE 10MG TABLET (ZETIA) PO SCH (20:48)
[2022-03-22] VITALS: BP 162/68
[2022-03-22 04:00] VITALS: BP 130/71
[2022-03-22 05:39] LABS: HEMATOCRIT 25.7 % (36.0-47.0); HEMOGLOBIN 7.9 g/dl (12.0-15.5); MEAN CORPUSCULAR HEMOGLOBIN 31.3 pg (27.0-33.0); MEAN CORPUSCULAR HGB CONC 30.7 g/dl (32.0-36.5); PLATELET COUNT, AUTOMATED 258 10^3/uL (150-450); RED BLOOD COUNT 2.52 10^6/uL (4.00-5.40); WHITE BLOOD COUNT 10.4 10^3/uL (4.0-10.0)
[2022-03-22 06:05] LABS: CALCIUM LEVEL 8.5 MG/DL (8.5-10.1); CREATININE FOR GFR 4.01 MG/DL (0.55-1.30); GLOMERULAR FILTRATION RATE 12.3 (>51); POTASSIUM SERUM 4.3 MEQ/L (3.5-5.1)
[2022-03-22] MEDS: LEVOTHYROXINE 25MCG TABLET (0.025MG) PO SCH (06:07)
[2022-03-22 07:23] VITALS: BP 156/66
[2022-03-22] MEDS: INSULIN LISPRO (NovoLOG) PER UNIT SC SCH ×4 (07:30→20:36)
[2022-03-22] MEDS: CYANOCOBALAMIN 500 MCG TAB PO SCH (08:32)
[2022-03-22] MEDS: buPROPion 100 MG TAB PO SCH ×2 (08:32→21:01)
[2022-03-22] MEDS: ASPIRIN 81MG ENTERIC TABLET PO SCH (08:32)
[2022-03-22] MEDS: FOLIC ACID 1MG TAB PO SCH (08:32)
[2022-03-22] MEDS: **hydrALAZINE** 50 MG TAB PO SCH ×3 (08:32→21:01)
[2022-03-22] MEDS: PANTOPRAZOLE 20 MG TAB PO SCH (08:32)
[2022-03-22] MEDS: TAMSULOSIN 0.4 MG CAP PO SCH (08:32)
[2022-03-22] MEDS: CLOPIDOGREL 75 MG TAB PO SCH (08:32)
[2022-03-22] MEDS: HEPARIN SOD (PORCINE) 5000UNITS/ML 1ML VIAL/SYRINGE SQ SCH ×2 (08:32→21:01)
[2022-03-22] MEDS: VITAMIN D 1,000 INTERNATIONAL UNITS TABLET PO SCH (08:32)
[2022-03-22] MEDS: POLYSPORIN OPHTH OINT 3.5 GM OD SCH ×2 (08:33→21:01)
[2022-03-22] MEDS: traMADol 50 MG TAB PO PRN (15:23)
[2022-03-22 16:09] VITALS: BP 144/67
[2022-03-22 20:00] VITALS: BP 131/62
[2022-03-22] MEDS: EZETIMIBE 10MG TABLET (ZETIA) PO SCH (21:01)
[2022-03-22] MEDS: ATORVASTATIN 20 MG TAB PO SCH (21:01)
[2022-03-23] VITALS (7 sets, daily range): BP systolic 137–169; BP diastolic 60–79
[2022-03-23] MEDS: LEVOTHYROXINE 25MCG TABLET (0.025MG) PO SCH (06:08)
[2022-03-23 07:30] LABS: HEMATOCRIT 25.7 % (36.0-47.0); HEMOGLOBIN 7.8 g/dl (12.0-15.5); MEAN CORPUSCULAR HEMOGLOBIN 30.8 pg (27.0-33.0); MEAN CORPUSCULAR HGB CONC 30.4 g/dl (32.0-36.5); MEAN CORPUSCULAR VOLUME 101.6 fl (80.0-96.0); PLATELET COUNT, AUTOMATED 271 10^3/uL (150-450); RED BLOOD COUNT 2.53 10^6/uL (4.00-5.40); WHITE BLOOD COUNT 10.3 10^3/uL (4.0-10.0)
[2022-03-23] MEDS: INSULIN LISPRO (NovoLOG) PER UNIT SC SCH ×4 (07:30→20:57)
[2022-03-23 08:08] LABS: CALCIUM LEVEL 8.4 MG/DL (8.5-10.1); CREATININE FOR GFR 3.03 MG/DL (0.55-1.30); POTASSIUM SERUM 3.8 MEQ/L (3.5-5.1)
[2022-03-23] MEDS: CLOPIDOGREL 75 MG TAB PO SCH (08:15)
[2022-03-23] MEDS: **hydrALAZINE** 50 MG TAB PO SCH ×3 (08:15→21:40)
[2022-03-23] MEDS: CYANOCOBALAMIN 500 MCG TAB PO SCH (08:16)
[2022-03-23] MEDS: buPROPion 100 MG TAB PO SCH ×2 (08:16→21:40)
[2022-03-23] MEDS: FOLIC ACID 1MG TAB PO SCH (08:16)
[2022-03-23] MEDS: ASPIRIN 81MG ENTERIC TABLET PO SCH (08:16)
[2022-03-23] MEDS: PANTOPRAZOLE 20 MG TAB PO SCH (08:16)
[2022-03-23] MEDS: TAMSULOSIN 0.4 MG CAP PO SCH (08:17)
[2022-03-23] MEDS: HEPARIN SOD (PORCINE) 5000UNITS/ML 1ML VIAL/SYRINGE SQ SCH ×2 (08:17→21:39)
[2022-03-23] MEDS: VITAMIN D 1,000 INTERNATIONAL UNITS TABLET PO SCH (08:17)
[2022-03-23] MEDS: POLYSPORIN OPHTH OINT 3.5 GM OD SCH ×2 (08:17→21:40)
[2022-03-23] MEDS ORDERED: SODIUM CHLORIDE 0.9% 1000ML IV PRN (08:45)
[2022-03-23] MEDS: ACETAMINOPHEN TAB 650MG DOSE (2X325MG) PO PRN (16:38)
[2022-03-23] MEDS: EZETIMIBE 10MG TABLET (ZETIA) PO SCH (21:39)
[2022-03-23] MEDS: ATORVASTATIN 20 MG TAB PO SCH (21:39)
[2022-03-24] VITALS (10 sets, daily range): BP systolic 145–196; BP diastolic 63–96
[2022-03-24] MEDS ORDERED: SODIUM CHLORIDE 0.9% 1000ML IV PRN (05:45)
[2022-03-24] MEDS: LEVOTHYROXINE 25MCG TABLET (0.025MG) PO SCH (06:07)
[2022-03-24] MEDS: **hydrALAZINE** 50 MG TAB PO SCH ×3 (06:23→20:31)
[2022-03-24] MEDS: PANTOPRAZOLE 20 MG TAB PO SCH (06:23)
[2022-03-24] MEDS: buPROPion 100 MG TAB PO SCH ×2 (06:23→20:30)
[2022-03-24 06:55] LABS: HEMATOCRIT 25.3 % (36.0-47.0); HEMOGLOBIN 7.7 g/dl (12.0-15.5); MEAN CORPUSCULAR HGB CONC 30.4 g/dl (32.0-36.5); PLATELET COUNT, AUTOMATED 251 10^3/uL (150-450); RED BLOOD COUNT 2.48 10^6/uL (4.00-5.40); WHITE BLOOD COUNT 11.3 10^3/uL (4.0-10.0)
[2022-03-24 07:17] LABS: CREATININE FOR GFR 2.45 MG/DL (0.55-1.30); GLOMERULAR FILTRATION RATE 21.7 (>51); POTASSIUM SERUM 3.8 MEQ/L (3.5-5.1)
[2022-03-24] MEDS: INSULIN LISPRO (NovoLOG) PER UNIT SC SCH ×4 (07:30→20:31)
[2022-03-24] MEDS: HEPARIN SOD (PORCINE) 5000UNITS/ML 1ML VIAL/SYRINGE SQ SCH ×2 (12:34→20:30)
[2022-03-24] MEDS: TAMSULOSIN 0.4 MG CAP PO SCH (12:34)
[2022-03-24] MEDS: POLYSPORIN OPHTH OINT 3.5 GM OD SCH ×2 (12:34→20:31)
[2022-03-24] MEDS: VITAMIN D 1,000 INTERNATIONAL UNITS TABLET PO SCH (12:35)
[2022-03-24] MEDS: ASPIRIN 81MG ENTERIC TABLET PO SCH (12:35)
[2022-03-24] MEDS: CLOPIDOGREL 75 MG TAB PO SCH (12:35)
[2022-03-24] MEDS: FOLIC ACID 1MG TAB PO SCH (12:35)
[2022-03-24] MEDS: ACETAMINOPHEN TAB 650MG DOSE (2X325MG) PO PRN (12:35)
[2022-03-24] MEDS: CYANOCOBALAMIN 500 MCG TAB PO SCH (12:35)
[2022-03-24] MEDS: EZETIMIBE 10MG TABLET (ZETIA) PO SCH (20:30)
[2022-03-24] MEDS: ATORVASTATIN 20 MG TAB PO SCH (20:30)
[2022-03-25] VITALS: BP 172/76
[2022-03-25 04:00] VITALS: BP 147/67
[2022-03-25 05:30] LABS: HEMATOCRIT 29.1 % (36.0-47.0); HEMOGLOBIN 8.9 g/dl (12.0-15.5); MEAN CORPUSCULAR HEMOGLOBIN 31.1 pg (27.0-33.0); MEAN CORPUSCULAR HGB CONC 30.6 g/dl (32.0-36.5); MEAN CORPUSCULAR VOLUME 101.7 fl (80.0-96.0); PLATELET COUNT, AUTOMATED 226 10^3/uL (150-450); RED BLOOD COUNT 2.86 10^6/uL (4.00-5.40); WHITE BLOOD COUNT 10.6 10^3/uL (4.0-10.0)
[2022-03-25] MEDS: LEVOTHYROXINE 25MCG TABLET (0.025MG) PO SCH (05:47)
[2022-03-25 05:51] LABS: CALCIUM LEVEL 8.3 MG/DL (8.5-10.1); CREATININE FOR GFR 3.22 MG/DL (0.55-1.30); GLOMERULAR FILTRATION RATE 15.8 (>51); POTASSIUM SERUM 3.8 MEQ/L (3.5-5.1)
[2022-03-25] MEDS: INSULIN LISPRO (NovoLOG) PER UNIT SC SCH ×4 (07:30→21:00)
[2022-03-25 08:35] VITALS: BP 154/80
[2022-03-25] MEDS: VITAMIN D 1,000 INTERNATIONAL UNITS TABLET PO SCH (09:30)
[2022-03-25] MEDS: POLYSPORIN OPHTH OINT 3.5 GM OD SCH ×2 (09:30→21:00)
[2022-03-25] MEDS: PANTOPRAZOLE 20 MG TAB PO SCH (09:31)
[2022-03-25] MEDS: ASPIRIN 81MG ENTERIC TABLET PO SCH (09:31)
[2022-03-25] MEDS: HEPARIN SOD (PORCINE) 5000UNITS/ML 1ML VIAL/SYRINGE SQ SCH ×2 (09:31→21:24)
[2022-03-25] MEDS: CLOPIDOGREL 75 MG TAB PO SCH (09:31)
[2022-03-25] MEDS: FOLIC ACID 1MG TAB PO SCH (09:31)
[2022-03-25] MEDS: buPROPion 100 MG TAB PO SCH ×2 (09:31→21:20)
[2022-03-25] MEDS: CYANOCOBALAMIN 500 MCG TAB PO SCH (09:31)
[2022-03-25] MEDS: TAMSULOSIN 0.4 MG CAP PO SCH (09:31)
[2022-03-25] MEDS: **hydrALAZINE** 50 MG TAB PO SCH ×3 (09:31→21:23)
[2022-03-25] MEDS: ACETAMINOPHEN TAB 650MG DOSE (2X325MG) PO PRN (09:35)
[2022-03-25 14:00] VITALS: BP 162/72
[2022-03-25] MEDS: ATORVASTATIN 20 MG TAB PO SCH (21:20)
[2022-03-25] MEDS: EZETIMIBE 10MG TABLET (ZETIA) PO SCH (21:23)
[2022-03-25 21:26] VITALS: BP_SYST 176; BP_SYST 91; BP_DIAS 176; BP_DIAS 91
[2022-03-26] MEDS ORDERED: SODIUM CHLORIDE 0.9% 1000ML IV PRN (05:50)
[2022-03-26] MEDS: LEVOTHYROXINE 25MCG TABLET (0.025MG) PO SCH (06:00)
[2022-03-26 06:05] VITALS: BP 180/88
[2022-03-26 06:18] LABS: HEMATOCRIT 30.9 % (36.0-47.0); HEMOGLOBIN 9.2 g/dl (12.0-15.5); MEAN CORPUSCULAR HEMOGLOBIN 30.5 pg (27.0-33.0); MEAN CORPUSCULAR HGB CONC 29.8 g/dl (32.0-36.5); MEAN CORPUSCULAR VOLUME 102.3 fl (80.0-96.0); PLATELET COUNT, AUTOMATED 242 10^3/uL (150-450); RED BLOOD COUNT 3.02 10^6/uL (4.00-5.40); WHITE BLOOD COUNT 9.8 10^3/uL (4.0-10.0)
[2022-03-26 06:35] LABS: CALCIUM LEVEL 8.4 MG/DL (8.5-10.1); CREATININE FOR GFR 3.46 MG/DL (0.55-1.30); GLOMERULAR FILTRATION RATE 14.6 (>51); POTASSIUM SERUM 3.9 MEQ/L (3.5-5.1)
[2022-03-26] MEDS: INSULIN LISPRO (NovoLOG) PER UNIT SC SCH ×4 (08:08→21:00)
[2022-03-26] MEDS: HEPARIN SOD (PORCINE) 5000UNITS/ML 1ML VIAL/SYRINGE SQ SCH ×2 (08:08→21:09)
[2022-03-26] MEDS: TAMSULOSIN 0.4 MG CAP PO SCH (08:09)
[2022-03-26] MEDS: CYANOCOBALAMIN 500 MCG TAB PO SCH (08:09)
[2022-03-26] MEDS: CLOPIDOGREL 75 MG TAB PO SCH (08:09)
[2022-03-26] MEDS: VITAMIN D 1,000 INTERNATIONAL UNITS TABLET PO SCH (08:09)
[2022-03-26] MEDS: FOLIC ACID 1MG TAB PO SCH (08:09)
[2022-03-26] MEDS: ASPIRIN 81MG ENTERIC TABLET PO SCH (08:09)
[2022-03-26] MEDS: POLYSPORIN OPHTH OINT 3.5 GM OD SCH ×2 (08:10→21:00)
[2022-03-26] MEDS: **hydrALAZINE** 50 MG TAB PO SCH ×3 (08:10→21:15)
[2022-03-26] MEDS: PANTOPRAZOLE 20 MG TAB PO SCH (08:15)
[2022-03-26] MEDS: ACETAMINOPHEN TAB 650MG DOSE (2X325MG) PO PRN (08:23)
[2022-03-26] MEDS: buPROPion 100 MG TAB PO SCH ×2 (09:00→21:10)
[2022-03-26] MEDS: IRON SUCROSE 100MG 5ML VIAL (J1756 PER 1MG) IV SCH (09:12)
[2022-03-26] MEDS: DARBEPOETIN 100 MCG/0.5 ML *NON-DIALYSIS* SYRINGE (J0881) SC SCH (11:04)
[2022-03-26 14:00] VITALS: BP 123/75
[2022-03-26 20:45] VITALS: BP 182/95
[2022-03-26] MEDS: ATORVASTATIN 20 MG TAB PO SCH (21:10)
[2022-03-26] MEDS: EZETIMIBE 10MG TABLET (ZETIA) PO SCH (21:10)
[2022-03-27 05:40] VITALS: BP 169/80
[2022-03-27] MEDS: LEVOTHYROXINE 25MCG TABLET (0.025MG) PO SCH (06:17)
[2022-03-27 06:27] LABS: HEMATOCRIT 31.5 % (36.0-47.0); HEMOGLOBIN 9.4 g/dl (12.0-15.5); MEAN CORPUSCULAR HEMOGLOBIN 30.7 pg (27.0-33.0); MEAN CORPUSCULAR HGB CONC 29.8 g/dl (32.0-36.5); MEAN CORPUSCULAR VOLUME 102.9 fl (80.0-96.0); PLATELET COUNT, AUTOMATED 213 10^3/uL (150-450); RED BLOOD COUNT 3.06 10^6/uL (4.00-5.40); WHITE BLOOD COUNT 8.9 10^3/uL (4.0-10.0)
[2022-03-27 06:47] LABS: CALCIUM LEVEL 8.7 MG/DL (8.5-10.1); CREATININE FOR GFR 2.49 MG/DL (0.55-1.30); GLOMERULAR FILTRATION RATE 21.3 (>51)
[2022-03-27] MEDS: POLYSPORIN OPHTH OINT 3.5 GM OD SCH ×3 (09:00→23:03)
[2022-03-27] MEDS: HEPARIN SOD (PORCINE) 5000UNITS/ML 1ML VIAL/SYRINGE SQ SCH ×2 (09:20→21:05)
[2022-03-27] MEDS: INSULIN LISPRO (NovoLOG) PER UNIT SC SCH ×4 (09:20→20:53)
[2022-03-27] MEDS: CLOPIDOGREL 75 MG TAB PO SCH (09:21)
[2022-03-27] MEDS: buPROPion 100 MG TAB PO SCH ×2 (09:21→21:04)
[2022-03-27] MEDS: TAMSULOSIN 0.4 MG CAP PO SCH (09:21)
[2022-03-27] MEDS: ASPIRIN 81MG ENTERIC TABLET PO SCH (09:21)
[2022-03-27] MEDS: VITAMIN D 1,000 INTERNATIONAL UNITS TABLET PO SCH (09:21)
[2022-03-27] MEDS: FOLIC ACID 1MG TAB PO SCH (09:21)
[2022-03-27] MEDS: CARVedilol 6.25 MG TAB PO SCH ×2 (09:22→21:04)
[2022-03-27] MEDS: CYANOCOBALAMIN 500 MCG TAB PO SCH (09:22)
[2022-03-27] MEDS: PANTOPRAZOLE 20 MG TAB PO SCH (09:22)
[2022-03-27] MEDS: **hydrALAZINE** 50 MG TAB PO SCH ×3 (09:22→21:04)
[2022-03-27 14:00] VITALS: BP 139/67
[2022-03-27] MEDS ORDERED: SODIUM CHLORIDE 0.9% INJ 10 ML SYR IV PRN (16:45)
[2022-03-27] MEDS ORDERED: SODIUM CHLORIDE 0.9% INJ 10 ML SYR IV SCH (16:45)
[2022-03-27 21:00] VITALS: BP 146/68
[2022-03-27] MEDS: EZETIMIBE 10MG TABLET (ZETIA) PO SCH (21:04)
[2022-03-27] MEDS: ATORVASTATIN 20 MG TAB PO SCH (21:05)
[2022-03-28] MEDS ORDERED: SODIUM CHLORIDE 0.9% 1000ML IV PRN (00:20)
[2022-03-28] MEDS: ASPIRIN 81MG ENTERIC TABLET PO SCH (05:34)
[2022-03-28] MEDS: CLOPIDOGREL 75 MG TAB PO SCH (05:35)
[2022-03-28] MEDS: PANTOPRAZOLE 20 MG TAB PO SCH (05:35)
[2022-03-28] MEDS: buPROPion 100 MG TAB PO SCH (05:35)
[2022-03-28] MEDS: VITAMIN D 1,000 INTERNATIONAL UNITS TABLET PO SCH (05:35)
[2022-03-28] MEDS: LEVOTHYROXINE 25MCG TABLET (0.025MG) PO SCH (05:35)
[2022-03-28] MEDS: TAMSULOSIN 0.4 MG CAP PO SCH (05:35)
[2022-03-28] MEDS: FOLIC ACID 1MG TAB PO SCH (05:35)
[2022-03-28] MEDS: CYANOCOBALAMIN 500 MCG TAB PO SCH (05:35)
[2022-03-28 05:36] VITALS: BP_SYST 134; BP_SYST 156; BP_DIAS 75; BP_DIAS 78
[2022-03-28] MEDS: **hydrALAZINE** 50 MG TAB PO SCH (05:36)
[2022-03-28] MEDS: CARVedilol 6.25 MG TAB PO SCH (05:36)
[2022-03-28] MEDS: HEPARIN SOD (PORCINE) 5000UNITS/ML 1ML VIAL/SYRINGE SQ SCH (05:40)
[2022-03-28 06:31] LABS: HEMATOCRIT 31.9 % (36.0-47.0); HEMOGLOBIN 9.4 g/dl (12.0-15.5); MEAN CORPUSCULAR HEMOGLOBIN 30.5 pg (27.0-33.0); MEAN CORPUSCULAR HGB CONC 29.5 g/dl (32.0-36.5); MEAN CORPUSCULAR VOLUME 103.6 fl (80.0-96.0); PLATELET COUNT, AUTOMATED 219 10^3/uL (150-450); RED BLOOD COUNT 3.08 10^6/uL (4.00-5.40); WHITE BLOOD COUNT 8.7 10^3/uL (4.0-10.0)
[2022-03-28 07:13] LABS: CALCIUM LEVEL 8.2 MG/DL (8.5-10.1); CREATININE FOR GFR 3.09 MG/DL (0.55-1.30); GLOMERULAR FILTRATION RATE 16.6 (>51); POTASSIUM SERUM 4.3 MEQ/L (3.5-5.1)
[2022-03-28] MEDS: INSULIN LISPRO (NovoLOG) PER UNIT SC SCH ×2 (07:47→12:00)
[2022-03-28] MEDS: IRON SUCROSE 100MG 5ML VIAL (J1756 PER 1MG) IV SCH (08:49)
[2022-03-28] MEDS ORDERED: PANT20TA6 PO (09:27)
[2022-03-28] MEDS ORDERED: CARV6.25 PO (09:27)
[2022-03-28 14:00] VITALS: BP 160/77
[2022-04-02] MEDS ORDERED: DARBEPOETIN 100 MCG/0.5 ML *DIALYSIS* SYRINGE (J0882) IV SCH (09:00)
== END 2022-03-28 14:20 | disposition home or self-care (01) | DRG 194 ==
LOC: M ED 12:35 → M ED INP 18:25 → ENRESERV 03-16 07:55 → M MSPAV 03-16 10:09 → M PCU 03-18 14:06 → M MSPAV 03-25 10:07
PROVIDERS: ADMIT Internal Medicine; ATTEND Internal Medicine
PROC: 30233N1 Transfusion of Nonautologous Red Blood Cells into Peripheral Vein, Percutaneous Approach (ICD-10-PCS; principal; 2022-03-19)
PROC: 02HV33Z Insertion of Infusion Device into Superior Vena Cava, Percutaneous Approach (ICD-10-PCS; 2022-03-21)
PROC: 0JH63XZ Insertion of Tunneled Vascular Access Device into Chest Subcutaneous Tissue and Fascia, Percutaneous Approach (ICD-10-PCS; 2022-03-21)
PROC: 5A1D70Z Performance of Urinary Filtration, Intermittent, Less than 6 Hours Per Day (ICD-10-PCS; 2022-03-23)
DX: I13.2 Hypertensive heart and chronic kidney disease with heart failure and with stage 5 chronic kidney disease, or end stage renal disease (principal); I21.4 Non-ST elevation (NSTEMI) myocardial infarction; N17.9 Acute kidney failure, unspecified; N18.6 End stage renal disease; E11.22 Type 2 diabetes mellitus with diabetic chronic kidney disease; E11.21 Type 2 diabetes mellitus with diabetic nephropathy; I69.351 Hemiplegia and hemiparesis following cerebral infarction affecting right dominant side; Z95.1 Presence of aortocoronary bypass graft; Z95.2 Presence of prosthetic heart valve; I25.10 Atherosclerotic heart disease of native coronary artery without angina pectoris; K21.9 Gastro-esophageal reflux disease without esophagitis; E03.9 Hypothyroidism, unspecified; Z79.4 Long term (current) use of insulin; D50.9 Iron deficiency anemia, unspecified; Z79.82 Long term (current) use of aspirin; Z79.899 Other long term (current) drug therapy; Z88.0 Allergy status to penicillin; Z88.8 Allergy status to other drugs, medicaments and biological substances; M19.90 Unspecified osteoarthritis, unspecified site; R00.1 Bradycardia, unspecified; F34.1 Dysthymic disorder; I69.392 Facial weakness following cerebral infarction; H01.003 Unspecified blepharitis right eye, unspecified eyelid; I50.33 Acute on chronic diastolic (congestive) heart failure

== ENCOUNTER → 2022-04-27 | Outpatient (CLI) | payer MEDICAID, OTHER ==
[~2022-04-27] MED LIST changes: +CARV6.25 PO; +PANT20TA6 PO; +TORS10TA3 PO
[2022-04-27 14:39] LABS: ALBUMIN 2.7 GM/DL (3.2-5.2); BILIRUBIN,TOTAL 0.3 MG/DL (0.2-1.0); CALCIUM LEVEL 9.2 MG/DL (8.5-10.1); CREATININE FOR GFR 3.06 MG/DL (0.55-1.30); GLOMERULAR FILTRATION RATE 16.8 (>51); POTASSIUM SERUM 4.6 MEQ/L (3.5-5.1); TOTAL PROTEIN 7.4 GM/DL (6.4-8.2)
== END ==
LOC: M PLALAB 10:11
PROVIDERS: ATTEND Physician Assistant Medical
DX: R60.9 Edema, unspecified (principal); R30.0 Dysuria

== ENCOUNTER → 2022-05-16 | Outpatient (REF) | payer OTHER, MEDICAID | LOC: M SFHCPLAZ 16:49 | PROVIDERS: ATTEND Physician Assistant Medical | DX: R30.0 Dysuria (principal) ==

== ENCOUNTER → 2022-07-08 | Outpatient (CLI) | payer MEDICAID, OTHER ==
[~2022-07-08] MED LIST changes: +ADME100I2 SC; +ALBU8.5H INH; +CLOP75TA99 PO; -PLAV1TAB2 PO
== END ==
LOC: M LABSMTC 11:51
PROVIDERS: ATTEND Anesthesiology
DX: Z01.812 Encounter for preprocedural laboratory examination (principal); Z20.822 Contact with and (suspected) exposure to COVID-19

== ENCOUNTER → 2022-07-29 | Outpatient (CLI) | payer OTHER | LOC: M LABSMTC 09:35 | PROVIDERS: ATTEND Anesthesiology | DX: Z01.812 Encounter for preprocedural laboratory examination (principal); Z20.822 Contact with and (suspected) exposure to COVID-19 ==

== ENCOUNTER → 2022-09-30 | Outpatient (CLI) | payer OTHER ==
[~2022-09-30] MED LIST changes: +[UNRECOGNIZED DRUG - REMARK]
== END ==
LOC: M LABSMTC 10:57
PROVIDERS: ATTEND Anesthesiology
DX: Z20.828 Contact with and (suspected) exposure to other viral communicable diseases (principal); Z11.52 Encounter for screening for COVID-19

== ENCOUNTER 2022-10-05 06:01 | Inpatient (IN) | payer OTHER ==
[~2022-10-05] VITALS: Ht 162.6 cm; Wt 90.1 kg
[2022-10-05] VITALS (17 sets, daily range): BP systolic 117–178; BP diastolic 58–76; O2SAT 95–99
[~2022-10-05 06:01] MED LIST changes: +VANCOMYCIN HCL 750 MG, VIAL MATE ADAPTER 1 EACH in D5W 250 ML IV ONE
[2022-10-05] MEDS ORDERED: NS 1,000 ML IV SCH ×2 (06:40→09:20)
[2022-10-05] MEDS ORDERED: INSULIN LISPRO (NovoLOG) PER UNIT SC PRN ×2 (06:40→09:45)
[2022-10-05] MEDS ORDERED: SUGAMMADEX SODIUM 500 MG/5 ML VIAL (BRIDION) As Ordered ONE (06:54)
[2022-10-05] MEDS ORDERED: propofoL 200 MG/20 ML VIAL As Ordered ONE (06:54)
[2022-10-05] MEDS ORDERED: LIDOCAINE 2% 100MG/5ML SDV (FOR ANES.) As Ordered ONE (06:54)
[2022-10-05] MEDS ORDERED: ONDANSETRON 4MG 2ML VIAL As Ordered ONE (06:54)
[2022-10-05] MEDS ORDERED: ROCURONIUM BROMIDE 50MG/5ML VIAL As Ordered ONE (06:54)
[2022-10-05] MEDS ORDERED: MIDAZOLAM INJ 2MG/2ML VIAL As Ordered ONE (07:03)
[2022-10-05] MEDS ORDERED: fentaNYL 100 MCG/2 ML INJECTION As Ordered ONE (07:03)
[2022-10-05 07:09] LABS: HEMATOCRIT 35.4 % (36.0-47.0); HEMOGLOBIN 11.1 g/dl (12.0-15.5); MEAN CORPUSCULAR HEMOGLOBIN 30.9 pg (27.0-33.0); MEAN CORPUSCULAR HGB CONC 31.4 g/dl (32.0-36.5); MEAN CORPUSCULAR VOLUME 98.6 fl (80.0-96.0); PLATELET COUNT, AUTOMATED 253 10^3/uL (150-450); RED BLOOD COUNT 3.59 10^6/uL (4.00-5.40); WHITE BLOOD COUNT 9.3 10^3/uL (4.0-10.0)
[2022-10-05] MEDS ORDERED: LIDOCAINE 1% SDV 30ML VIAL As Ordered ONE (07:13)
[2022-10-05] MEDS ORDERED: HEPARIN SOD (PORCINE) 5000UNITS/ML 1ML VIAL/SYRINGE As Ordered ONE (07:13)
[2022-10-05] MEDS ORDERED: PAPAVERINE HCL 60MG 2ML VIAL (30MG/ML) As Ordered ONE (07:13)
[2022-10-05] MEDS ORDERED: BUPIVACAINE/EPIN 0.5% 30ML VIAL As Ordered ONE (07:13)
[2022-10-05 07:24] LABS: INR 0.92; PROTHROMBIN TIME 12.6 SECONDS (12.5-14.5)
[2022-10-05 07:25] LABS: PARTIAL THROMBOPLASTIN TIME 26.4 SECONDS (24.8-34.2)
[2022-10-05 07:43] LABS: CREATININE FOR GFR 3.54 MG/DL (0.55-1.30); GLOMERULAR FILTRATION RATE 14.2 (>51); POTASSIUM SERUM 3.8 MMOL/L (3.5-5.1)
[2022-10-05] MEDS ORDERED: ACETAMINOPHEN 1000MG 100ML IV BAG As Ordered ONE (08:36)
[2022-10-05] MEDS ORDERED: HYDROMORPHONE HCL 0.5 MG/ 0.5 ML SYRINGE IV PRN (09:20)
[2022-10-05] MEDS ORDERED: oxyCODONE 5MG TAB PO PRN (09:20)
[2022-10-05] MEDS ORDERED: ONDANSETRON 4MG 2ML VIAL IV PRN (09:20)
[2022-10-05] MEDS ORDERED: fentaNYL 100 MCG/2 ML INJECTION IV PRN (09:20)
[2022-10-05] MEDS ORDERED: ACETAMINOPHEN TAB 650MG DOSE (2X325MG) PO PRN (11:05)
[2022-10-05] MEDS ORDERED: GLUCOSE 4GM CHEW TABLET PO PRN (11:05)
[2022-10-05] MEDS ORDERED: DEXTROSE 50% 50ML SYRINGE IV PRN (11:05)
[2022-10-05] MEDS ORDERED: GLUCAGON INJ 1MG VIAL SC PRN (11:05)
[2022-10-05] MEDS ORDERED: ALBUTEROL 90 MCG/ACT 8GM HFA INHALER INH PRN (11:05)
[2022-10-05] MEDS ORDERED: PERCOCET 5MG/325MG TAB PO PRN ×2 (11:15)
[2022-10-05] MEDS ORDERED: metroNIDAZOLE 500 MG in IV 1 EA IV SCH (11:15)
[2022-10-05] MEDS ORDERED: CEFEPIME HCL 1 GM in D5W MINI-BAG PLUS 50 ML IV ONE (13:00)
[2022-10-05] MEDS: INSULIN LISPRO (NovoLOG) PER UNIT SC SCH ×2 (13:16→17:03)
[2022-10-05] MEDS: ASPIRIN 81MG ENTERIC TABLET PO SCH (13:16)
[2022-10-05] MEDS ORDERED: SEVE800T3 PO (14:50)
[2022-10-05] MEDS ORDERED: HOME MED LIST COMPLETE! XX SCH (14:55)
[2022-10-05] MEDS: (RENVELA) SEVELAMER **CARBONate** 800 MG TAB PO SCH (17:03)
[2022-10-05] MEDS: LACTOBACILLUS ACIDOPHILUS CAP (BACID) PO SCH (17:03)
[2022-10-05] MEDS: CARVedilol 6.25 MG TAB PO SCH (20:15)
[2022-10-05] MEDS: buPROPion 100 MG TAB PO SCH (20:15)
[2022-10-05] MEDS: DOCUSATE SODIUM 100MG CAPSULE PO SCH (20:16)
[2022-10-05] MEDS ORDERED: ATORVASTATIN 20 MG TAB PO SCH (21:00)
[2022-10-05] MEDS ORDERED: EZETIMIBE 10MG TABLET (ZETIA) PO SCH (21:00)
[2022-10-05] MEDS ORDERED: LEVEMIR (INSULIN DETEMIR) 1 UNITS/0.01ML SC SCH (21:00)
[2022-10-05] MEDS ORDERED: INSULIN LISPRO (NovoLOG) PER UNIT SC SCH (21:00)
[2022-10-06] VITALS (13 sets, daily range): BP systolic 120–168; BP diastolic 63–81; O2SAT 89–98
[2022-10-06] MEDS ORDERED: LEVOTHYROXINE 25MCG TABLET (0.025MG) PO SCH (06:00)
[2022-10-06] MEDS ORDERED: HEPARIN 1,000UNITS/ML 10ML VIAL (FOR RADIOLOGY & DIALYSIS ONLY) IV PRN (06:10)
[2022-10-06] MEDS ORDERED: HEPARIN 1,000UNITS/ML 10ML VIAL (FOR RADIOLOGY & DIALYSIS ONLY) XX SCH (06:10)
[2022-10-06] MEDS ORDERED: SODIUM CHLORIDE 0.9% 1000ML IV PRN (06:10)
[2022-10-06] MEDS: LACTOBACILLUS ACIDOPHILUS CAP (BACID) PO SCH (06:38)
[2022-10-06] MEDS: (RENVELA) SEVELAMER **CARBONate** 800 MG TAB PO SCH (06:38)
[2022-10-06] MEDS: buPROPion 100 MG TAB PO SCH (06:38)
[2022-10-06 07:00] LABS: HEMATOCRIT 32.4 % (36.0-47.0); MEAN CORPUSCULAR HEMOGLOBIN 30.8 pg (27.0-33.0); MEAN CORPUSCULAR HGB CONC 30.9 g/dl (32.0-36.5); MEAN CORPUSCULAR VOLUME 99.7 fl (80.0-96.0); PLATELET COUNT, AUTOMATED 224 10^3/uL (150-450); RED BLOOD COUNT 3.25 10^6/uL (4.00-5.40); WHITE BLOOD COUNT 10.1 10^3/uL (4.0-10.0)
[2022-10-06 07:33] LABS: ALBUMIN 2.8 G/DL (3.2-5.2); ALKALINE PHOSPHATASE 129 U/L (46-116); ALT/SGPT < 9 U/L (7.0-40); AST/SGOT 15 U/L (<34); BILIRUBIN,TOTAL 0.3 MG/DL (0.3-1.2); BLOOD UREA NITROGEN 28 MG/DL (9-23); CALCIUM LEVEL 8.5 MG/DL (8.5-10.1); CARBON DIOXIDE LEVEL 26 MMOL/L (20-31); CHLORIDE LEVEL 100 MMOL/L (98-107); CREATININE FOR GFR 4.53 MG/DL (0.55-1.30); GLOMERULAR FILTRATION RATE 10.7 (>51); GLUCOSE, FASTING 148 MG/DL (60-100); POTASSIUM SERUM 4.4 MMOL/L (3.5-5.1); SODIUM LEVEL 136 MMOL/L (136-145); TOTAL PROTEIN 6.4 G/DL (5.7-8.2)
[2022-10-06] MEDS: INSULIN LISPRO (NovoLOG) PER UNIT SC SCH (07:40)
[2022-10-06] MEDS: ASPIRIN 81MG ENTERIC TABLET PO SCH (07:40)
[2022-10-06] MEDS: DOCUSATE SODIUM 100MG CAPSULE PO SCH (07:41)
[2022-10-06] MEDS: CARVedilol 6.25 MG TAB PO SCH (07:41)
[2022-10-06] MEDS ORDERED: TAMSULOSIN 0.4 MG CAP PO SCH (09:00)
[2022-10-06] MEDS ORDERED: PANTOPRAZOLE 20 MG TAB PO SCH (09:00)
[2022-10-06] MEDS ORDERED: ASPIRIN 81MG ENTERIC TABLET PO SCH (09:00)
[2022-10-06] MEDS ORDERED: CLOPIDOGREL 75 MG TAB PO SCH (09:00)
[2022-10-06] MEDS ORDERED: RISATAB3 PO (10:14)
[2022-10-06] MEDS ORDERED: COLA100C5 PO (10:14)
[2022-10-06] MEDS ORDERED: PERCOCET PO (10:14)
[2022-10-06] MEDS ORDERED: ACET1TAB55 PO (10:14)
[2022-10-06] MEDS ORDERED: LEVO1TAB38 PO (10:29)
[2022-10-06] MEDS ORDERED: CEFEPIME HCL 1 GM in D5W MINI-BAG PLUS 50 ML IV SCH (18:00)
== END 2022-10-06 14:08 | disposition home or self-care (01) | DRG 180 ==
LOC: M SDC 06:01 → M MS5PR 11:01 → M PCU 11:16
PROVIDERS: ADMIT Internal Medicine; ATTEND Internal Medicine
PROC: 031B0ZF Bypass Right Radial Artery to Lower Arm Vein, Open Approach (ICD-10-PCS; principal; 2022-10-05 07:30)
DX: I13.2 Hypertensive heart and chronic kidney disease with heart failure and with stage 5 chronic kidney disease, or end stage renal disease (principal); J96.01 Acute respiratory failure with hypoxia; J69.0 Pneumonitis due to inhalation of food and vomit; N18.6 End stage renal disease; I69.351 Hemiplegia and hemiparesis following cerebral infarction affecting right dominant side; J98.11 Atelectasis; I25.10 Atherosclerotic heart disease of native coronary artery without angina pectoris; I25.2 Old myocardial infarction; E03.9 Hypothyroidism, unspecified; E11.9 Type 2 diabetes mellitus without complications; M19.90 Unspecified osteoarthritis, unspecified site; F34.1 Dysthymic disorder; Z95.1 Presence of aortocoronary bypass graft; I69.398 Other sequelae of cerebral infarction; Z79.82 Long term (current) use of aspirin; Z79.899 Other long term (current) drug therapy; Z88.0 Allergy status to penicillin; Z88.8 Allergy status to other drugs, medicaments and biological substances; I50.33 Acute on chronic diastolic (congestive) heart failure

== ENCOUNTER → 2022-12-21 | Outpatient (CLI) | payer OTHER ==
[~2022-12-21] MED LIST changes: +ACET1TAB55 PO; +COLA100C5 PO; +LEVO1TAB38 PO; +PERCOCET PO; +RISATAB3 PO; +SEVE800T3 PO; -VANCOMYCIN HCL 750 MG, VIAL MATE ADAPTER 1 EACH in D5W 250 ML IV ONE
[2022-12-21 13:57] LABS: BASO # 0.1 10^3/uL (0.0-0.2); BASO % 0.7 % (0.0-1.0); EOS # 0.2 10^3/uL (0.0-0.5); EOS % 2.2 % (0.0-3.0); HEMATOCRIT 40.9 % (36.0-47.0); HEMOGLOBIN 12.8 g/dl (12.0-15.5); LYMPH # 1.8 10^3/uL (1.5-5.0); LYMPH % 18.5 % (24.0-44.0); MEAN CORPUSCULAR HEMOGLOBIN 31.7 pg (27.0-33.0); MEAN CORPUSCULAR HGB CONC 31.3 g/dl (32.0-36.5); MEAN CORPUSCULAR VOLUME 101.2 fl (80.0-96.0); MONO # 1.1 10^3/uL (0.0-0.8); NEUTROPHILS # 6.6 10^3/uL (1.5-8.5); NEUTROPHILS % 67.3 % (36.0-66.0); PLATELET COUNT, AUTOMATED 364 10^3/uL (150-450); RED BLOOD COUNT 4.04 10^6/uL (4.00-5.40); WHITE BLOOD COUNT 9.8 10^3/uL (4.0-10.0)
[2022-12-21 14:08] LABS: HEMOGLOBIN A1c 8.7 % (4.0-6.0)
[2022-12-21 14:26] LABS: ALBUMIN 3.3 G/DL (3.2-5.2); ALKALINE PHOSPHATASE 143 U/L (46-116); ALT/SGPT < 9 U/L (7.0-40); AST/SGOT 14 U/L (<34); BILIRUBIN,TOTAL 0.3 MG/DL (0.3-1.2); BLOOD UREA NITROGEN 32 MG/DL (9-23); CALCIUM LEVEL 9.4 MG/DL (8.5-10.1); CARBON DIOXIDE LEVEL 29 MMOL/L (20-31); CHLORIDE LEVEL 96 MMOL/L (98-107); CHOLESTEROL LEVEL 130 MG/DL (<200); CHOLESTEROL RISK RATIO 2.35 (<5); CREATININE FOR GFR 4.83 MG/DL (0.55-1.30); GLOMERULAR FILTRATION RATE 9.9 (>51); GLUCOSE, FASTING 267 MG/DL (60-100); HDL CHOLESTEROL 55.3 MG/DL (>40); LDL CHOLESTEROL 43.3 MG/DL (<100); NON-HDL-C 74.7 MG/DL; POTASSIUM SERUM 4.7 MMOL/L (3.5-5.1); SODIUM LEVEL 134 MMOL/L (136-145); TOTAL PROTEIN 7.6 G/DL (5.7-8.2); TRIGLYCERIDES LEVEL 157 MG/DL (<150)
== END ==
LOC: M PLALAB 09:43
PROVIDERS: ATTEND Physician Assistant Medical
DX: E11.22 Type 2 diabetes mellitus with diabetic chronic kidney disease (principal); D50.9 Iron deficiency anemia, unspecified; N18.6 End stage renal disease; R60.9 Edema, unspecified; E78.00 Pure hypercholesterolemia, unspecified

== ENCOUNTER → 2022-12-21 | Outpatient (REF) | payer OTHER, MEDICAID | LOC: M SFHCPLAZ 09:19 | PROVIDERS: ATTEND Physician Assistant Medical | DX: Z53.9 Procedure and treatment not carried out, unspecified reason (principal) ==